=== PATIENT | male | born 1975 | race American Indian/Alaskan Native ===

== ENCOUNTER 2017-04-19 21:13 | Emergency (ER) | payer SELFPAY ==
[2017-04-19 21:57] VITALS: BP 135/84
--- NOTE | 2017-04-19 22:55 | Emergency Department Report ---
ED Back Pain/Injury HPI - General Chief Complaint: Back Pain/Injury Stated Complaint: LOWER BACK PAIN Time Seen by Provider: 04/19/17 22:50 Source: patient Limitations: No Limitations - History of Present Illness Initial Comments: 42-year-old -[place] male with no past medical history comes in for complaint of lower back pain 1 week. Patient denies any difficulty urinating denies any hematuria denies any dysuria. Patient also denies any trauma to his back. 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 He reports a little pain medication he had was Motrin 1 week ago. Patient does admit to smoking. He currently reports no pain at this time. He has no primary care provider medical history no known drug allergies and currently takes no meds. MD Complaint: back pain Consistency: intermittent Improves With: none - Related Data Allergies Allergy/AdvReac Type Severity Reaction Status Date / Time No Known Allergies Allergy Unverified 04/19/17 21:51 ED Review of Systems ROS: Stated complaint: LOWER BACK PAIN Other details as noted in HPI Constitutional: denies: chills, fever Eyes: denies: eye pain, eye discharge, vision change ENT: denies: ear pain, throat pain Respiratory: denies: cough, shortness of breath, wheezing Cardiovascular: denies: chest pain, palpitations Endocrine: no symptoms reported Gastrointestinal: denies: abdominal pain, nausea, diarrhea Genitourinary: denies: urgency, dysuria Musculoskeletal: back pain. denies: joint swelling, arthralgia Skin: denies: rash, lesions Neurological: denies: headache, weakness, paresthesias Psychiatric: denies: anxiety, depression Hematological/Lymphatic: denies: easy bleeding, easy bruising ED Past Medical Hx - Past Medical History Previous Medical History?: No - Surgical History Past Surgical History?: Yes Additional Surgical History: fluid drained from lungs - Social History Smoking Status: Current Every Day Smoker Substance Use Type: Alcohol, Marijuana ED Physical Exam - General Limitations: No Limitations General appearance: alert, in no apparent distress - Head Head exam: Present: atraumatic, normocephalic - Eye Eye exam: Present: normal appearance - ENT ENT exam: Present: mucous membranes moist - Neck Neck exam: Present: normal inspection - Respiratory Respiratory exam: Present: normal lung sounds bilaterally. Absent: respiratory distress - Cardiovascular Cardiovascular Exam: Present: regular rate, normal rhythm. Absent: systolic murmur, diastolic murmur, rubs, gallop - GI/Abdominal GI/Abdominal exam: Present: soft, normal bowel sounds - Rectal Rectal exam: Present: deferred - Extremities Exam Extremities exam: Present: normal inspection - Back Exam Back exam: Present: normal inspection - Neurological Exam Neurological exam: Present: alert, oriented X3 - Psychiatric Psychiatric exam: Present: normal affect, normal mood - Skin Skin exam: Present: warm, dry, intact, normal color. Absent: rash ED Course Vital Signs 04/19/17 21:52 Temperature 98.3 F Pulse Rate 66 Respiratory 18 Rate Blood Pressure 135/84 O2 Sat by Pulse 98 Oximetry ED Medical Decision Making - Medical Decision Making Patient has been evaluated by this provider fast track. Patient reports he has no back pain at this moment. I discussed the patient needs to follow up with [facility] for further evaluation. Also discussed the patient needs to stop smoking. Patient verbalized understanding. Patient has had no trauma to the back. Critical care attestation.: If time is entered above; I have spent that time in minutes in the direct care of this critically ill patient, excluding procedure time. ED Disposition Clinical Impression: Back pain Qualifiers: Back pain location: low back pain Chronicity: acute Back pain laterality: unspecified Sciatica presence: without sciatica Qualified Code(s): M54.5 - Low back pain Disposition: DC-01 TO HOME OR SELFCARE Is pt being admited?: No Does the pt Need Aspirin: No Condition: Stable Instructions: Back Pain (ED), Low Back Strain (ED) Additional Instructions: Please follow up with [facility] for further evaluation. He can take Motrin or Tylenol for back pain. Referrals: CHI MANNING MD [Primary Care Provider] - 3-[address] [facility] [Provider Group] - 3-5 Days
[2017-04-19 23:27] LABS: Bilirubin,Urine NEG (Negative); Blood,Urine NEG (Negative); Color,Urine Yellow (Yellow); Mucus,Urine 1+ /HPF; Protein,Urine <15 mg/dL mg/dL (Negative); Urobilinogen,Urine < 2.0 mg/dL (<2.0); WBC,Urine < 1.0 /HPF (0.0-6.0)
== END 2017-04-19 23:30 | disposition home or self-care (01) ==
LOC: ED 21:13
DX: M54.5 Low back pain (principal); F17.200 Nicotine dependence, unspecified, uncomplicated; F12.10 Cannabis abuse, uncomplicated
CPT/HCPCS: 81001; 99283

== ENCOUNTER 2017-10-16 02:19 | Inpatient (IN) | payer OTHER ==
[2017-10-16] MEDS ORDERED: NACL 0.9% 1000 ML 1,000 ML IV ONE (04:02)
[2017-10-16 04:17] LABS: Hematocrit 29.7 % (35.5-45.6); Hemoglobin 10.3 gm/dl (11.8-15.2); Mean Corpuscular HGB Conc 35 % (32-34); Mean Corpuscular Hemoglobin 40 pg (28-32); Platelet Count 105 K/mm3 (140-440); Red Blood Count 2.58 M/mm3 (3.65-5.03); Red Cell Distribution Width 13.4 % (13.2-15.2)
[2017-10-16 04:35] LABS: Mean Corpuscular Volume 115 fl (84-94)
[2017-10-16 04:50] LABS: Alanine Aminotransferase 11 units/L (7-56); Albumin 3.6 g/dL (3.9-5); BUN/Creatinine Ratio 7; Blood Urea Nitrogen 7 mg/dL (9-20); Calcium 8.7 mg/dL (8.4-10.2); Hemolysis Index 2
[2017-10-16 06:43] LABS: Band Neutrophils # (Manual) 0.1 K/mm3; Basophils % (Manual) 0 % (0.0-1.8); Eosinophils % (Manual) 0 % (0.0-4.3); Total Cells Counted 50
[2017-10-16 06:44] LABS: Platelet Estimate Appears Decreased; Toxic Granulation Rare
--- NOTE | 2017-10-16 06:45 | Emergency Department Report ---
ED General Adult HPI - General Chief complaint: Dizziness Stated complaint: SOB/DIZZINESS Time Seen by Provider: 10/16/17 06:31 Source: patient, RN notes reviewed Mode of arrival: Ambulatory Limitations: No Limitations - History of Present Illness Initial comments: This is a 42-year-old gentleman who is not known to this provider previously. He does not have a local primary care doctor and denies chronic medical conditions. He presents to the ER with 3 weeks of malaise, fatigue, shortness of breath with exertion, nausea, a few episodes of nonbloody, nonbilious emesis , green diarrhea, one episode within the past 24 hours, nontraumatic lower back pain, and urinary urgency and nausea, indicates vomiting times one within the past couple days. He denies DVT, pulmonary embolus risk factors, and he endorses no IV drug use, and he endorses one sexual contact within the past 6 months. His symptoms are constant, did not radiate anywhere, and worse with physical exertion and decreased with rest. -: Gradual, week(s) Location: back Radiation: non-radiation Severity scale (0 -10): 9 Quality: aching Consistency: intermittent Improves with: other Worsens with: other Associated Symptoms: fever/chills, loss of appetite, malaise, nausea/vomiting, shortness of breath, weakness. denies: confusion, chest pain, cough, diaphoresis, headaches, rash, seizure, syncope - Related Data Allergies Allergy/AdvReac Type Severity Reaction Status Date / Time No Known Allergies Allergy Verified 10/16/17 06:35 ED Review of Systems ROS: Stated complaint: SOB/DIZZINESS Other details as noted in HPI Comment: All other systems reviewed and negative ED Past Medical Hx - Past Medical History Previous Medical History?: No - Surgical History Additional Surgical History: fluid drained from lungs - Social History Smoking Status: Current Every Day Smoker Substance Use Type: None ED Physical Exam - General Limitations: No Limitations General appearance: alert, in no apparent distress - Head Head exam: Present: atraumatic, normocephalic - Eye Eye exam: Present: normal appearance, EOMI, other (visual acuity intact to finger counting, color perception, reading at a close distance). Absent: nystagmus - ENT ENT exam: Present: normal exam, normal orophraynx, mucous membranes moist, normal external ear exam - Neck Neck exam: Present: normal inspection, full ROM. Absent: tenderness, meningismus - Respiratory Respiratory exam: Present: normal lung sounds bilaterally. Absent: respiratory distress, wheezes, rales, rhonchi, stridor, chest wall tenderness - Cardiovascular Cardiovascular Exam: Present: regular rate, normal rhythm, normal heart sounds. Absent: bradycardia, tachycardia, irregular rhythm, systolic murmur, diastolic murmur, rubs, gallop - GI/Abdominal GI/Abdominal exam: Present: soft, normal bowel sounds. Absent: distended, tenderness, guarding, rebound, rigid, pulsatile mass - Rectal Rectal exam: Present: deferred - Extremities Exam Extremities exam: Present: normal inspection, full ROM, normal capillary refill , pedal edema (there is 1+ edema in the lower extremities), other (2+ pulses noted in the bilateral upper, lower extremities. Compartments soft. No long bony tenderness. The pelvis is stable.). Absent: tenderness, joint swelling, calf tenderness (there is no palpable cord. There is a negative Homans sign.) - Back Exam Back exam: Present: normal inspection, full ROM, paraspinal tenderness (there is reproducible paralumbar tenderness). Absent: tenderness, CVA tenderness (R) , vertebral tenderness - Neurological Exam Neurological exam: Present: alert, oriented X3, CN II-XII intact, normal gait ( there is no pass pointing. There is negative pronator drift. There is normal [id number].), other (Extraocular movements intact. Tongue midline. No facial droop. Facial sensation intact to light touch in the V1, V2, V3 distribution bilaterally. 5 and 5 strength in 4 extremities.. Sensation is intact to light touch in 4 extremities.). Absent: motor sensory deficit - Psychiatric Psychiatric exam: Present: normal affect, normal mood - Skin Skin exam: Present: warm, dry, intact, normal color. Absent: rash ED Course Vital Signs 10/16/17 10/16/17 03:54 05:23 Temperature 99.6 F 97.8 F Pulse Rate 93 H 60 Respiratory 18 18 Rate Blood Pressure 89/48 Blood Pressure 94/56 [Left] O2 Sat by Pulse 97 99 Oximetry - Reevaluation(s) Reevaluation #1: 10/16/17 07:13 Antibiotics ordered outside the three-hour window due to turnaround time between overnight to morning provider shift. 10/16/17 07:14 Reevaluation #2: 10/16/17 07:41 Blood pressure in the low 100s. Noncontrast CT scan of the brain is negative. Noncontrast CT scan of the abdomen and pelvis is negative for acute surgical disease. The patient is amenable to hospital admission. I will defer to the inpatient team to follow-up on the additional laboratory studies that were ordered in the emergency department, such as the hepatitis panel, RPR, HIV screen. The hospital physician, Dr. Phil Velazquez, accepted the patient to the medical service. ED Medical Decision Making - Lab Data Result diagrams: 10/16/17 04:07 10/16/17 04:07 Vital Signs 10/16/17 10/16/17 03:54 05:23 Temperature 99.6 F 97.8 F Pulse Rate 93 H 60 Respiratory 18 18 Rate Blood Pressure 89/48 Blood Pressure 94/56 [Left] O2 Sat by Pulse 97 99 Oximetry Lab Results 10/16/17 10/16/17 10/16/17 Range/Units 04:07 04:07 06:20 WBC 1.9 L* (4.5-11.0) K/mm3 RBC 2.58 L (3.65-5.03) M/mm3 Hgb 10.3 L (11.8-15.2) gm/dl Hct 29.7 L (35.5-45.6) % MCV 115 H (84-94) fl MCH 40 H (28-32) pg MCHC 35 H (32-34) % RDW 13.4 (13.2-15.2) % Plt Count 105 L (140-440) K/mm3 Add Manual Diff Complete Total Counted 50 Seg Neuts % (Manual) 30.0 L (40.0-70.0) % Band Neutrophils % 4.0 % Lymphocytes % (Manual) 54.0 H (13.4-35.0) % Reactive Lymphs % (Man) 0 % Monocytes % (Manual) 12.0 H (0.0-7.3) % Eosinophils % (Manual) 0 (0.0-4.3) % Basophils % (Manual) 0 (0.0-1.8) % Metamyelocytes % 0 % Myelocytes % 0 % Promyelocytes % 0 % Blast Cells % 0 % Nucleated RBC % Not Reportable Seg Neutrophils # Man 0.6 L (1.8-7.7) K/mm3 Band Neutrophils # 0.1 K/mm3 Lymphocytes # (Manual) 1.0 L (1.2-5.4) K/mm3 Abs React Lymphs (Man) 0.0 K/mm3 Monocytes # (Manual) 0.2 (0.0-0.8) K/mm3 Eosinophils # (Manual) 0.0 (0.0-0.4) K/mm3 Basophils # (Manual) 0.0 (0.0-0.1) K/mm3 Metamyelocytes # 0.0 K/mm3 Myelocytes # 0.0 K/mm3 Promyelocytes # 0.0 K/mm3 Blast Cells # 0.0 K/mm3 WBC Morphology Not Reportable Hypersegmented Neuts Not Reportable Hyposegmented Neuts Not Reportable Hypogranular Neuts Not Reportable Smudge Cells Not Reportable Toxic Granulation Rare Toxic Vacuolation Not Reportable Dohle Bodies Not Reportable Pelger-Huet Anomaly Not Reportable Raymundo Rods Not Reportable Platelet Estimate Appears decreased Clumped Platelets Not Reportable Plt Clumps, EDTA Not Reportable Large Platelets Not Reportable Giant Platelets Not Reportable Platelet Satelliting Not Reportable Plt Morphology Comment Not Reportable RBC Morphology Not Reportable Dimorphic RBCs Not Reportable Polychromasia Not Reportable Hypochromasia Not Reportable Poikilocytosis Not Reportable Anisocytosis Not Reportable Microcytosis Not Reportable Macrocytosis Not Reportable Spherocytes Not Reportable Pappenheimer Bodies Not Reportable Sickle Cells Not Reportable Target Cells Not Reportable Tear Drop Cells Not Reportable Ovalocytes Not Reportable Helmet Cells Not Reportable Whalen-Slayton Bodies Not Reportable Bivins Rings Not Reportable Gladys Cells Not Reportable Bite Cells Not Reportable Crenated Cell Not Reportable Elliptocytes Not Reportable Acanthocytes (Spur) Not Reportable Rouleaux Not Reportable Hemoglobin C Crystals Not Reportable Schistocytes Not Reportable Malaria parasites Not Reportable Eduin Bodies Not Reportable Hem Pathologist Commnt No Sodium 138 (137-145) mmol/L Potassium 4.2 (3.6-5.0) mmol/L Chloride 100.8 (98-107) mmol/L Carbon Dioxide 27 (22-30) mmol/L Anion Gap 14 mmol/L BUN 7 L (9-20) mg/dL Creatinine 1.0 (0.8-1.5) mg/dL Estimated GFR > 60 ml/min BUN/Creatinine Ratio 7 % Glucose 110 H (75-100) mg/dL Calcium 8.7 (8.4-10.2) mg/dL Total Bilirubin 0.30 (0.1-1.2) mg/dL AST 14 (5-40) units/L ALT 11 (7-56) units/L Alkaline Phosphatase 43 (35-129) units/L Total Protein 6.8 (6.3-8.2) g/dL Albumin 3.6 L (3.9-5) g/dL Albumin/Globulin Ratio 1.1 % Urine Color [place] (Yellow) Urine Turbidity Slightly-cloudy (Clear) Urine pH 6.0 (5.0-7.0) Ur Specific [place] 1.026 (1.003-1.030) Urine Protein 100 mg/dl (Negative) mg/dL Urine Glucose (UA) Neg (Negative) mg/dL Urine Ketones Neg (Negative) mg/dL Urine Blood Neg (Negative) Urine Nitrite Neg (Negative) Urine Bilirubin Neg (Negative) Urine Urobilinogen 4.0 (<2.0) mg/dL Ur Leukocyte Esterase Neg (Negative) Urine WBC (Auto) 16.0 H (0.0-6.0) /HPF Urine RBC (Auto) 8.0 (0.0-6.0) /HPF U Epithel Cells (Auto) 1.0 (0-13.0) /HPF Urine Mucus 3+ /HPF - EKG Data -: EKG Interpreted by [place] EKG shows normal: sinus rhythm, axis, intervals, QRS complexes, ST-T waves - EKG Data When compared to previous EKG there are: previous EKG unavailable Interpretation: LVH (high left ventricular voltage given age less than 50) - Medical Decision Making Differential diagnosis, including but not limited to: HIV, cancer, malignancy, pneumonia, urinary tract infection, hepatitis, neutropenia, seizures, sepsis Assessment and plan: 42-year-old gentleman with nonspecific constitutional symptoms, with heart rate greater than 90, hypotension, leukopenia, moderate neutropenia, absolute neutrophil count calculated to be 646 as per the M.D. calc website. He'll be resuscitated according to the standard sepsis pathway. Noncontrast CT scan of the brain is pending. Noncontrast CT scan of the abdomen and pelvis is pending. X-ray of the chest is pending. He will require admission to the hospital given that he has moderate neutropenia and is meeting systemic inflammatory response syndrome criteria. Reports no DVT or pulmonary embolus risk factors, low risk by well's criteria, perc negative. I have contacted the senior oracle adf developer on-call, Dr. Canales, will follow in consultation, agrees with current management plan, recommends LDH, B12, folate level, blood smear. Additional managements will depend on his diagnostics in the emergency room. Critical care attestation.: If time is entered above; I have spent that time in minutes in the direct care of this critically ill patient, excluding procedure time. ED Disposition Clinical Impression: Neutropenia, SIRS (systemic inflammatory response syndrome) Disposition: OP ADMIT IP TO THIS HOSP Is pt being admited?: Yes Condition: Good Referrals: PRIMARY CARE, [Primary Care Provider] - 3-5 Days
[2017-10-16] MEDS ORDERED: NACL 0.9% 1000 ML IV ONE (06:54)
[2017-10-16 07:06] LABS: Bilirubin,Urine NEG (Negative); Blood,Urine NEG (Negative); Color,Urine Amber (Yellow); Mucus,Urine 3+ /HPF
--- NOTE | 2017-10-16 07:21 | XRay Report ---
ROUTINE CHEST, TWO VIEWS: HISTORY: Dyspnea. The lungs are mildly hyperinflated but clear. The trachea, heart, mediastinal contour, and bony thorax are unremarkable. IMPRESSION: Mild hyperinflation, otherwise, unremarkable chest films
--- NOTE | 2017-10-16 07:23 | Cat Scan Report ---
FINAL REPORT EXAM: CT HEAD/BRAIN WO CON HISTORY: dizzyness TECHNIQUE: CT imaging acquired through the head without intravenous contrast. Transaxial reformations are provided. PRIORS: None. FINDINGS: The ventricles, cisterns and sulci are normal. No intraparenchymal or extra-axial mass, hemorrhage, or mass effect. Herbert and white-matter differentiation is normal. Normal spherical shape of the globes. Paranasal sinuses and mastoid air cells are clear. No skull or facial fracture visualized. IMPRESSION: No acute intracranial abnormality.
--- NOTE | 2017-10-16 07:29 | Cat Scan Report ---
FINAL REPORT EXAM: CT ABDOMEN PELVIS WO CON HISTORY: back pain hypotension TECHNIQUE: CT images obtained through the Abdomen and Pelvis without contrast. Transaxial,coronal and sagittal reformats are provided. PRIORS: None. FINDINGS: Imaged intrathoracic contents are remarkable for possible sequela of emphysema or small airways disease. Kidneys are normal in size, axis and position. No hydroureteronephrosis. There is a nonobstructive 4 millimeter stone in the right collecting system. No left-sided nephrolithiasis. No stones are seen within the urinary bladder. The liver, gallbladder, pancreas, spleen, and adrenal glands demonstrate a normal noncontrast appearance. Hollow enteric organs are normal in course and caliber. There is fluid throughout much of the small bowel and colon without evident bowel wall thickening or adjacent stranding or edema. Appendix is normal. No intra-abdominal free air/fluid or lymphadenopathy. Aorta is normal in course and caliber. Superficial soft tissues are unremarkable. No acute or aggressive appearing skeletal findings. IMPRESSION: Fluid throughout much of the small bowel and colon may be infectious or inflammatory in etiology. No pneumoperitoneum or evident bowel wall thickening or adjacent stranding or edema. Partially imaged lungs show suggested sequela of centrilobular emphysema and/or reactive airways disease
[2017-10-16] MEDS ORDERED: SUBLIMAZE IV ONE (07:41)
[2017-10-16 07:49] LABS: INR 1.02 (0.87-1.13)
[2017-10-16 07:50] LABS: Partial Thromboplastin Time 35.5 Sec. (24.2-36.6)
[2017-10-16] MEDS ORDERED: MAXIPIME/NS 2 GM/100 ML 2 GM/100 ML BAG IV SCH (08:00)
[2017-10-16] MEDS ORDERED: NACL 0.9% 500 ML 500 ML IV ONE (08:00)
--- NOTE | 2017-10-16 08:08 | History and Physical Report ---
History of Present Illness Date of examination: 10/16/17 Date of admission: 10/16/17 Chief complaint: GENERALIZED WEAKNESS, BACK PAIN, NAUSEA History of present illness: 42 year old male with weakness, near syncope worse with movement, chills, persistent nausea, with no associated diarrhea or shortness of breath. The patient reports that this started about 2 weeks ago and was seen in the hospital in [place] time for chest discomfort was clipped from the ER. He reports feeling better but symptoms recurred the last week presented him to come to the hospital as he was unable to keep any food down. On arrival to the hospital and was noted to be hypotensive with systolic blood pressure in the low 80s. While the patient denies overt alcohol abuse he does admit to tobacco use and occasional alcohol use but denies any binge drinking. He was noted to be pancytopenic and recommended for admission Past History Past Surgical History: Other (pleural effusion with drainage complication of a pneumonia) Social history: smoking Family history: no significant family history Medications and Allergies Allergies Allergy/AdvReac Type Severity Reaction Status Date / Time No Known Allergies Allergy Verified 10/16/17 06:35 Home Medications Medication Instructions Recorded Confirmed Last Taken Type No Known Home Medications [No 10/16/17 10/16/17 Unknown History Reported Home Medications] Active Meds: Active Medications Cefepime HCl (Maxipime/Ns 2 Gm/100 Ml) 2 gm in 100 mls @ 200 mls/hr IV NOW ANGELITO ; Protocol Stop: 10/16/17 09:00 Ceftriaxone Sodium (Rocephin/Ns 1 Gm/50 Ml) 1 gm in 50 mls @ 100 mls/hr IV Q24HR ANGELITO; Protocol Sodium Chloride (Nacl 0.9% 500 Ml) 500 mls @ 999 mls/hr IV ONCE ONE Stop: 10/16/17 08:30 Sodium Chloride (Nacl 0.9% 1000 Ml) 1,000 mls @ 150 mls/hr IV DIRECT ANGELITO Review of Systems All systems: negative Constitutional: weight loss, chills, sweats, night sweats Respiratory: cough, shortness of breath Gastrointestinal: nausea, vomiting Musculoskeletal: low back pain Neurological: syncope (near) Hematologic/Lymphatic: no easy bruising, no easy bleeding, no thrombophilia Exam - Physical Exam Narrative exam: VITAL SIGNS: Reviewed. GENERAL: The patient appeared well nourished and normally developed has a little lethargic. Vital signs as documented. HEAD: No signs of head trauma. EYES: Pupils are equal. Extraocular motions intact. EARS: Hearing grossly intact. MOUTH: Oropharynx is normal. NECK: No adenopathy, no JVD. CHEST: Chest with clear breath sounds bilaterally. No wheezes, rales, or rhonchi. CARDIAC: Regular rate and rhythm. S1 and S2, without murmurs, gallops, or rubs. VASCULAR: No Edema. Peripheral pulses normal and equal in all extremities. ABDOMEN: Soft, without detectable tenderness. No sign of distention. No rebound or guarding, and no masses palpated. Bowel Sounds normal. MUSCULOSKELETAL: Good range of motion of all major joints. Extremities without clubbing, cyanosis or edema. NEUROLOGIC EXAM: Alert and oriented x 3. No focal sensory or strength deficits. Speech normal. Follows commands. PSYCHIATRIC: Mood normal. SKIN: No rash or lesions. - Constitutional Vitals: Temp Pulse Resp BP Pulse Ox 97.8 F 60 18 89/48 99 10/16/17 05:23 10/16/17 05:23 10/16/17 05:23 10/16/17 05:23 10/16/17 05:23 Results - Labs CBC & Chem 7: 10/16/17 04:07 10/16/17 04:07 Labs: Laboratory Last Values WBC 1.9 K/mm3 (4.5-11.0) L* 10/16/17 04:07 RBC 2.58 M/mm3 (3.65-5.03) L 10/16/17 04:07 Hgb 10.3 gm/dl (11.8-15.2) L 10/16/17 04:07 Hct 29.7 % (35.5-45.6) L 10/16/17 04:07 MCV 115 fl (84-94) H 10/16/17 04:07 MCH 40 pg (28-32) H 10/16/17 04:07 MCHC 35 % (32-34) H 10/16/17 04:07 RDW 13.4 % (13.2-15.2) 10/16/17 04:07 Plt Count 105 K/mm3 (140-440) L 10/16/17 04:07 Add Manual Diff Complete 10/16/17 04:07 Total Counted 50 10/16/17 04:07 Seg Neuts % (Manual) 30.0 % (40.0-70.0) L 10/16/17 04:07 Band Neutrophils % 4.0 % 10/16/17 04:07 Lymphocytes % (Manual) 54.0 % (13.4-35.0) H 10/16/17 04:07 Reactive Lymphs % (Man) 0 % 10/16/17 04:07 Monocytes % (Manual) 12.0 % (0.0-7.3) H 10/16/17 04:07 Eosinophils % (Manual) 0 % (0.0-4.3) 10/16/17 04:07 Basophils % (Manual) 0 % (0.0-1.8) 10/16/17 04:07 Metamyelocytes % 0 % 10/16/17 04:07 Myelocytes % 0 % 10/16/17 04:07 Promyelocytes % 0 % 10/16/17 04:07 Blast Cells % 0 % 10/16/17 04:07 Nucleated RBC % Not Reportable 10/16/17 04:07 Seg Neutrophils # Man 0.6 K/mm3 (1.8-7.7) L 10/16/17 04:07 Band Neutrophils # 0.1 K/mm3 10/16/17 04:07 Lymphocytes # (Manual) 1.0 K/mm3 (1.2-5.4) L 10/16/17 04:07 Abs React Lymphs (Man) 0.0 K/mm3 10/16/17 04:07 Monocytes # (Manual) 0.2 K/mm3 (0.0-0.8) 10/16/17 04:07 Eosinophils # (Manual) 0.0 K/mm3 (0.0-0.4) 10/16/17 04:07 Basophils # (Manual) 0.0 K/mm3 (0.0-0.1) 10/16/17 04:07 Metamyelocytes # 0.0 K/mm3 10/16/17 04:07 Myelocytes # 0.0 K/mm3 10/16/17 04:07 Promyelocytes # 0.0 K/mm3 10/16/17 04:07 Blast Cells # 0.0 K/mm3 10/16/17 04:07 WBC Morphology Not Reportable 10/16/17 04:07 Hypersegmented Neuts Not Reportable 10/16/17 04:07 Hyposegmented Neuts Not Reportable 10/16/17 04:07 Hypogranular Neuts Not Reportable 10/16/17 04:07 Smudge Cells Not Reportable 10/16/17 04:07 Toxic Granulation Rare 10/16/17 04:07 Toxic Vacuolation Not Reportable 10/16/17 04:07 Dohle Bodies Not Reportable 10/16/17 04:07 Pelger-Huet Anomaly Not Reportable 10/16/17 04:07 Raymundo Rods Not Reportable 10/16/17 04:07 Platelet Estimate Appears decreased 10/16/17 04:07 Clumped Platelets Not Reportable 10/16/17 04:07 Plt Clumps, EDTA Not Reportable 10/16/17 04:07 Large Platelets Not Reportable 10/16/17 04:07 Giant Platelets Not Reportable 10/16/17 04:07 Platelet Satelliting Not Reportable 10/16/17 04:07 Plt Morphology Comment Not Reportable 10/16/17 04:07 RBC Morphology Not Reportable 10/16/17 04:07 Dimorphic RBCs Not Reportable 10/16/17 04:07 Polychromasia Not Reportable 10/16/17 04:07 Hypochromasia Not Reportable 10/16/17 04:07 Poikilocytosis Not Reportable 10/16/17 04:07 Anisocytosis Not Reportable 10/16/17 04:07 Microcytosis Not Reportable 10/16/17 04:07 Macrocytosis Not Reportable 10/16/17 04:07 Spherocytes Not Reportable 10/16/17 04:07 Pappenheimer Bodies Not Reportable 10/16/17 04:07 Sickle Cells Not Reportable 10/16/17 04:07 Target Cells Not Reportable 10/16/17 04:07 Tear Drop Cells Not Reportable 10/16/17 04:07 Ovalocytes Not Reportable 10/16/17 04:07 Helmet Cells Not Reportable 10/16/17 04:07 Whalen-[place] Bodies Not Reportable 10/16/17 04:07 Ringling Rings Not Reportable 10/16/17 04:07 Gladys Cells Not Reportable 10/16/17 04:07 Bite Cells Not Reportable 10/16/17 04:07 Crenated Cell Not Reportable 10/16/17 04:07 Elliptocytes Not Reportable 10/16/17 04:07 Acanthocytes (Spur) Not Reportable 10/16/17 04:07 Rouleaux Not Reportable 10/16/17 04:07 Hemoglobin C Crystals Not Reportable 10/16/17 04:07 Schistocytes Not Reportable 10/16/17 04:07 Malaria parasites Not Reportable 10/16/17 04:07 Eduin Bodies Not Reportable 10/16/17 04:07 Hem Pathologist Commnt No 10/16/17 04:07 PT 13.9 Sec. (12.2-14.9) 10/16/17 07:18 INR 1.02 (0.87-1.13) 10/16/17 07:18 APTT 35.5 Sec. (24.2-36.6) 10/16/17 07:18 Sodium 138 mmol/L (137-145) 10/16/17 04:07 Potassium 4.2 mmol/L (3.6-5.0) 10/16/17 04:07 Chloride 100.8 mmol/L (98-107) 10/16/17 04:07 Carbon Dioxide 27 mmol/L (22-30) 10/16/17 04:07 Anion Gap 14 mmol/L 10/16/17 04:07 BUN 7 mg/dL (9-20) L 10/16/17 04:07 Creatinine 1.0 mg/dL (0.8-1.5) 10/16/17 04:07 Estimated GFR > 60 ml/min 10/16/17 04:07 BUN/Creatinine Ratio 7 % 10/16/17 04:07 Glucose 110 mg/dL (75-100) H 10/16/17 04:07 POC Glucose 92 (70-105) 10/16/17 08:00 Lactic Acid 0.80 mmol/L (0.7-2.0) 10/16/17 07:18 Calcium 8.7 mg/dL (8.4-10.2) 10/16/17 04:07 Total Bilirubin 0.30 mg/dL (0.1-1.2) 10/16/17 04:07 AST 14 units/L (5-40) 10/16/17 04:07 ALT 11 units/L (7-56) 10/16/17 04:07 Alkaline Phosphatase 43 units/L (35-129) 10/16/17 04:07 Total Protein 6.8 g/dL (6.3-8.2) 10/16/17 04:07 Albumin 3.6 g/dL (3.9-5) L 10/16/17 04:07 Albumin/Globulin Ratio 1.1 % 10/16/17 04:07 Urine Color Haydee (Yellow) 10/16/17 06:20 Urine Turbidity Slightly-cloudy (Clear) 10/16/17 06:20 Urine pH 6.0 (5.0-7.0) 10/16/17 06:20 Ur Specific [place] 1.026 (1.003-1.030) 10/16/17 06:20 Urine Protein 100 mg/dl mg/dL (Negative) 10/16/17 06:20 Urine Glucose (UA) Neg mg/dL (Negative) 10/16/17 06:20 Urine Ketones Neg mg/dL (Negative) 10/16/17 06:20 Urine Blood Neg (Negative) 10/16/17 06:20 Urine Nitrite Neg (Negative) 10/16/17 06:20 Urine Bilirubin Neg (Negative) 10/16/17 06:20 Urine Urobilinogen 4.0 mg/dL (<2.0) 10/16/17 06:20 Ur Leukocyte Esterase Neg (Negative) 10/16/17 06:20 Urine WBC (Auto) 16.0 /HPF (0.0-6.0) H 10/16/17 06:20 Urine RBC (Auto) 8.0 /HPF (0.0-6.0) 10/16/17 06:20 U Epithel Cells (Auto) 1.0 /HPF (0-13.0) 10/16/17 06:20 Urine Mucus 3+ /HPF 10/16/17 06:20 Blood Type O POSITIVE 10/16/17 07:18 - Imaging and Cardiology CT scan - abdomen: pending Assessment and Plan Assessment and plan: 42 year old male with weakness, near syncope worse with movement, chills, persistent nausea, with no associated diarrhea or shortness of breath. The patient reports that this started about 2 weeks ago and was seen in the hospital in [place] time for chest discomfort was clipped from the ER. He reports feeling better but symptoms recurred the last week presented him to come to the hospital as he was unable to keep any food down. On arrival to the hospital and was noted to be hypotensive with systolic blood pressure in the low 80s. While the patient denies overt alcohol abuse he does admit to tobacco use and occasional alcohol use but denies any binge drinking. He was noted to be pancytopenic and recommended for admission pancytopenia Acute Cystitis Shock syndrom Acute Gastroenteritis SIRS Tobacco use disorder PLAN Admit to step down and downgrade once pressure improve Sepsis protocol, will give additional fluids Jennings work up currently on going from ED including cultures Counselling about tobacco cessation Emperic abx coverage Hepatitis profile Consult to hematology and ID Neutropenic precautions CT abd Pain control DVT/GI proph plan discussed with ID, patient and ED physician. The high probability of a clinically significant, sudden or life threatening deterioration of the [GI, renal] system(s) required my full and direct attention , intervention and personal management. The aggregate critical care time was [35 ] minutes. This time is in addition to time spent performing reported procedures but includes the following: [X Data Review and interpretation [X] Patient assessment and monitoring of vital signs [X Documentation [X] Medication orders and management Advance Directives: Yes Plan of care discussed with patient/family: Yes
[2017-10-16 08:56] LABS: Smear for Schistocytes None Seen
[2017-10-16] MEDS: ROCEPHIN/NS 1 GM/50 ML 1 GM/50 ML BAG IV SCH (09:34)
--- NOTE | 2017-10-16 09:48 | Consultation ---
History of Present Illness - Reason for Consult Consult date: 10/16/17 neutropenia Requesting physician: JONATHON MENCHACA - History of Present Illness 42-year-old male w/o medical history; admitted on 10/16/17 due to 2-week history of malaise, fatigue, generalized weakness, subjective fever, associated with anorexia and nausea. Patient has an episode of vomiting and episode of green diarrhea. H is currently unemployed and a stay at home. No recent travels. Denies any tick bites. Denies any sick contacts. Reports significant weight loss for 2 weeks but unable to determine how much he lost. He does smoke a pack of cigarettes for many years. Denies stroke abuse or alcohol abuse. In the ED initial temperature was 99.6, heart rate 93, respiration 18, O2 sat 97 , blood pressure 94/56. Initial white count 1.9. Hemoglobin 10.3. Platelets 105. Lymphocytes 54%. Creatinine 1. ALT and AST normal, UA shows 16 white blood cells and negative leukocyte esterase. Chest x-ray was unremarkable. CT of the head unremarkable. CT of Abdomen unremarkable. Microbiology: Blood cultures: 10/16 ngtd Current Antimicrobials: ceftriaxone Previous Antimicrobials: Medications and Allergies Allergies Allergy/AdvReac Type Severity Reaction Status Date / Time No Known Allergies Allergy Verified 10/16/17 06:35 Active Meds: Active Medications Ceftriaxone Sodium (Rocephin/Ns 1 Gm/50 Ml) 1 gm in 50 mls @ 100 mls/hr IV Q24HR ANGELITO; Protocol Last Admin: 10/16/17 09:34 Dose: 100 mls/hr Sodium Chloride (Nacl 0.9% 1000 Ml) 1,000 mls @ 150 mls/hr IV DIRECT ANGELITO Review of Systems All systems: negative (as per HPI. Rest of 10 point review of systems negative) Physical Examination - Physical Exam Narrative exam: General appearance: Alert in NAD, conversant Eyes: anicteric sclerae, moist conjunctivae; no lid-lag; PERRLA HENT: Atraumatic; oropharynx clear with moist mucous membranes and no mucosal ulcerations/no oral thrush; normal hard and soft palate. Normal external ears. Neck: Trachea midline; supple, no thyromegaly or lymphadenopathy Lungs: CTA, with normal respiratory effort and no intercostal retractions CV: RRR, no murmurs Abdomen: Soft, non-tender; no masses or hepatosplenomegaly Extremities: No peripheral edema or extremity lymphadenopathy Skin: Superficial nodules at the johnson area. Vickey Cervical lymph node palpable. Psych: Appropriate affect, alert and oriented to person, place and time. Neuro: alert and oriented x 3. Moving all extermities Lines: No CVL / PICC - Constitutional Vitals: Vital Signs Temp Pulse Resp BP Pulse Ox 97.8 F 55 L 17 117/68 100 10/16/17 08:07 10/16/17 08:07 10/16/17 08:35 10/16/17 08:07 10/16/17 08:07 Temperature -Last 24 Hours Temperature 97.8 F Temperature 97.8 F Temperature 99.6 F Results - Labs CBC & Chem 7: 10/16/17 04:07 10/16/17 04:07 Labs: Abnormal lab results 10/16/17 10/16/17 10/16/17 Range/Units 04:07 04:07 06:20 WBC 1.9 L* (4.5-11.0) K/mm3 RBC 2.58 L (3.65-5.03) M/mm3 Hgb 10.3 L (11.8-15.2) gm/dl Hct 29.7 L (35.5-45.6) % MCV 115 H (84-94) fl MCH 40 H (28-32) pg MCHC 35 H (32-34) % Plt Count 105 L (140-440) K/mm3 Seg Neuts % (Manual) 30.0 L (40.0-70.0) % Lymphocytes % (Manual) 54.0 H (13.4-35.0) % Monocytes % (Manual) 12.0 H (0.0-7.3) % Seg Neutrophils # Man 0.6 L (1.8-7.7) K/mm3 Lymphocytes # (Manual) 1.0 L (1.2-5.4) K/mm3 BUN 7 L (9-20) mg/dL Glucose 110 H (75-100) mg/dL Albumin 3.6 L (3.9-5) g/dL Urine WBC (Auto) 16.0 H (0.0-6.0) /HPF Assessment and Plan Assessment: 1) SIRS: Present on admission, manifested by fever, tachycardia, hypotension, neutropenia. Etiology unclear. DDX: mononucleosis syndrome, UTI, HIV, tick bite infections (denies recent bite), less likely malignancy -CXR neg -CT abd neg -HIV neg 2) Mild UTI 3) Weight loss: from ? mono Plan: -follow-up blood cultures, urine culture -obtain EBV and CMV serology -obtain C-reactive protein (CRP) -continue ceftriaxone for now -agree with Hem consult Thank you for your consultation, will follow up with you. Tina Brooke MD Infectious Diseases Specialist [facility] ([facility] M [phone] O [phone]
[2017-10-16 10:05] LABS: Hepatitis A Antibody IgM Non-Reactive (NonReactive); Hepatitis B Surface Antigen Non-Reactive (Negative)
--- NOTE | 2017-10-16 10:24 | Hem/Onc Consultation ---
History of Present Illness - Reason for Consult Consult date: 10/16/17 pancytopenia - History of Present Illness found to have low wbc, hb and plt, h/o weakness 2 weeks 42-year-old male w/o medical history; admitted on 10/16/17 due to 2-week history of malaise, fatigue, generalized weakness, subjective fever, associated with anorexia and nausea. Patient had an episode of vomiting and episode of green diarrhea. H is currently unemployed and a stay at home. No recent travels. Reports significant weight loss for 2 weeks but unable to determine how much he lost. He does smoke a pack of cigarettes for many years. Denies stroke abuse or alcohol abuse. In the ED blood pressure 94/56. Initial white count 1.9. Hemoglobin 10.3. Platelets 105. Lymphocytes 54%. Creatinine 1. ALT and AST normal, UA shows 16 white blood cells and negative leukocyte esterase. Chest x-ray was unremarkable. CT of the head unremarkable. CT of Abdomen unremarkable. Past History Past Medical History: denies: acute [place] Social history: lives with family Medications and Allergies Allergies Allergy/AdvReac Type Severity Reaction Status Date / Time No Known Allergies Allergy Verified 10/16/17 06:35 Active Meds: Active Medications Ceftriaxone Sodium (Rocephin/Ns 1 Gm/50 Ml) 1 gm in 50 mls @ 100 mls/hr IV Q24HR ANGELITO; Protocol Last Admin: 10/16/17 09:34 Dose: 100 mls/hr Sodium Chloride (Nacl 0.9% 1000 Ml) 1,000 mls @ 150 mls/hr IV DIRECT ANGELITO Review of Systems Constitutional: weight loss, fever, fatigue Ears, nose, mouth and throat: no epistaxis Cardiovascular: no chest pain Respiratory: no hemoptysis Gastrointestinal: vomiting Genitourinary Male: no hematuria Integumentary: no rash Neurological: no convulsions Hematologic/Lymphatic: no easy bruising Exam - Constitutional Vitals: Last Vital Signs Temp 97.8 F 10/16/17 08:07 Pulse 55 L 10/16/17 08:07 Resp 17 10/16/17 08:35 BP 117/68 10/16/17 08:07 Pulse Ox 100 10/16/17 08:07 General appearance: no acute distress - EENT Eyes: PERRL ENT: clear oral mucosa Lymph node exam: negative cervical, negative supraclavicular - Neck Neck: supple - Respiratory Respiratory: negative: CTA - Cardiovascular Rhythm: regular Heart Sounds: Present: S1 & S2 Extremities: No edema - Gastrointestinal General gastrointestinal: Present: soft, non-tender Rectal Exam: deferred - Genitourinary Male genitourinary: Present: deferred - Integumentary Integumentary: clear - Neurologic Neurologic: moves all extremities Results - Labs lab Results: Laboratory Results - last 24 hr 10/16/17 10/16/17 10/16/17 04:07 04:07 06:20 WBC 1.9 L* RBC 2.58 L Hgb 10.3 L Hct 29.7 L MCV 115 H MCH 40 H MCHC 35 H RDW 13.4 Plt Count 105 L Add Manual Diff Complete Total Counted 50 Seg Neuts % (Manual) 30.0 L Band Neutrophils % 4.0 Lymphocytes % (Manual) 54.0 H Reactive Lymphs % (Man) 0 Monocytes % (Manual) 12.0 H Eosinophils % (Manual) 0 Basophils % (Manual) 0 Metamyelocytes % 0 Myelocytes % 0 Promyelocytes % 0 Blast Cells % 0 Nucleated RBC % Not Reportable Seg Neutrophils # Man 0.6 L Band Neutrophils # 0.1 Lymphocytes # (Manual) 1.0 L Abs React Lymphs (Man) 0.0 Monocytes # (Manual) 0.2 Eosinophils # (Manual) 0.0 Basophils # (Manual) 0.0 Metamyelocytes # 0.0 Myelocytes # 0.0 Promyelocytes # 0.0 Blast Cells # 0.0 WBC Morphology Not Reportable Hypersegmented Neuts Not Reportable Hyposegmented Neuts Not Reportable Hypogranular Neuts Not Reportable Smudge Cells Not Reportable Toxic Granulation Rare Toxic Vacuolation Not Reportable Dohle Bodies Not Reportable Pelger-Huet Anomaly Not Reportable Raymundo Rods Not Reportable Platelet Estimate Appears decreased Clumped Platelets Not Reportable Plt Clumps, EDTA Not Reportable Large Platelets Not Reportable Giant Platelets Not Reportable Platelet Satelliting Not Reportable Plt Morphology Comment Not Reportable RBC Morphology Not Reportable Dimorphic RBCs Not Reportable Polychromasia Not Reportable Hypochromasia Not Reportable Poikilocytosis Not Reportable Anisocytosis Not Reportable Microcytosis Not Reportable Macrocytosis Not Reportable Spherocytes Not Reportable Pappenheimer Bodies Not Reportable Sickle Cells Not Reportable Target Cells Not Reportable Tear Drop Cells Not Reportable Ovalocytes Not Reportable Helmet Cells Not Reportable [place] Bodies Not Reportable Energy Rings Not Reportable [place] Cells Not Reportable Bite Cells Not Reportable Crenated Cell Not Reportable Elliptocytes Not Reportable Acanthocytes (Spur) Not Reportable Rouleaux Not Reportable Hemoglobin C Crystals Not Reportable Schistocytes Not Reportable Malaria parasites Not Reportable Eduin Bodies Not Reportable Hem Pathologist Commnt No PT INR APTT Sodium 138 Potassium 4.2 Chloride 100.8 Carbon Dioxide 27 Anion Gap 14 BUN 7 L Creatinine 1.0 Estimated GFR > 60 BUN/Creatinine Ratio 7 Glucose 110 H POC Glucose Lactic Acid Calcium 8.7 Total Bilirubin 0.30 AST 14 ALT 11 Alkaline Phosphatase 43 Troponin T Total Protein 6.8 Albumin 3.6 L Albumin/Globulin Ratio 1.1 Vitamin B12 Folate TSH Urine Color [place] Urine Turbidity Slightly-cloudy Urine pH 6.0 Ur Specific [place] 1.026 Urine Protein 100 mg/dl Urine Glucose (UA) Neg Urine Ketones Neg Urine Blood Neg Urine Nitrite Neg Urine Bilirubin Neg Urine Urobilinogen 4.0 Ur Leukocyte Esterase Neg Urine WBC (Auto) 16.0 H Urine RBC (Auto) 8.0 U Epithel Cells (Auto) 1.0 Urine Mucus 3+ Hepatitis A IgM Ab Hep Bs Antigen HIV 1&2 Antibody Rapid HIV P24 Antigen Schistocytes Smear Blood Type Antibody Screen 10/16/17 10/16/17 10/16/17 07:18 07:18 07:18 WBC RBC Hgb Hct MCV MCH MCHC RDW Plt Count Add Manual Diff Total Counted Seg Neuts % (Manual) Band Neutrophils % Lymphocytes % (Manual) Reactive Lymphs % (Man) Monocytes % (Manual) Eosinophils % (Manual) Basophils % (Manual) Metamyelocytes % Myelocytes % Promyelocytes % Blast Cells % Nucleated RBC % Seg Neutrophils # Man Band Neutrophils # Lymphocytes # (Manual) Abs React Lymphs (Man) Monocytes # (Manual) Eosinophils # (Manual) Basophils # (Manual) Metamyelocytes # Myelocytes # Promyelocytes # Blast Cells # WBC Morphology Hypersegmented Neuts Hyposegmented Neuts Hypogranular Neuts Smudge Cells Toxic Granulation Toxic Vacuolation Dohle Bodies Pelger-Huet Anomaly Raymundo Rods Platelet Estimate Clumped Platelets Plt Clumps, EDTA Large Platelets Giant Platelets Platelet Satelliting Plt Morphology Comment RBC Morphology Dimorphic RBCs Polychromasia Hypochromasia Poikilocytosis Anisocytosis Microcytosis Macrocytosis Spherocytes None seen Pappenheimer Bodies Sickle Cells Target Cells Tear Drop Cells Ovalocytes Helmet Cells [place] Bodies Energy Rings Gladys Cells Bite Cells Crenated Cell Elliptocytes Acanthocytes (Spur) Rouleaux Hemoglobin C Crystals Schistocytes Malaria parasites Eduin Bodies Hem Pathologist Commnt PT 13.9 INR 1.02 APTT 35.5 Sodium Potassium Chloride Carbon Dioxide Anion Gap BUN Creatinine Estimated GFR BUN/Creatinine Ratio Glucose POC Glucose Lactic Acid Calcium Total Bilirubin AST ALT Alkaline Phosphatase Troponin T Total Protein Albumin Albumin/Globulin Ratio Vitamin B12 Folate TSH Urine Color Urine Turbidity Urine pH Ur Specific [place] Urine Protein Urine Glucose (UA) Urine Ketones Urine Blood Urine Nitrite Urine Bilirubin Urine Urobilinogen Ur Leukocyte Esterase Urine WBC (Auto) Urine RBC (Auto) U Epithel Cells (Auto) Urine Mucus Hepatitis A IgM Ab Non-reactive Hep Bs Antigen Non-reactive HIV 1&2 Antibody Rapid Non react HIV P24 Antigen Non react Schistocytes Smear None seen Blood Type Antibody Screen 10/16/17 10/16/17 10/16/17 07:18 07:18 07:18 WBC RBC Hgb Hct MCV MCH MCHC RDW Plt Count Add Manual Diff Total Counted Seg Neuts % (Manual) Band Neutrophils % Lymphocytes % (Manual) Reactive Lymphs % (Man) Monocytes % (Manual) Eosinophils % (Manual) Basophils % (Manual) Metamyelocytes % Myelocytes % Promyelocytes % Blast Cells % Nucleated RBC % Seg Neutrophils # Man Band Neutrophils # Lymphocytes # (Manual) Abs React Lymphs (Man) Monocytes # (Manual) Eosinophils # (Manual) Basophils # (Manual) Metamyelocytes # Myelocytes # Promyelocytes # Blast Cells # WBC Morphology Hypersegmented Neuts Hyposegmented Neuts Hypogranular Neuts Smudge Cells Toxic Granulation Toxic Vacuolation Dohle Bodies Pelger-Huet Anomaly Raymundo Rods Platelet Estimate Clumped Platelets Plt Clumps, EDTA Large Platelets Giant Platelets Platelet Satelliting Plt Morphology Comment RBC Morphology Dimorphic RBCs Polychromasia Hypochromasia Poikilocytosis Anisocytosis Microcytosis Macrocytosis Spherocytes Pappenheimer Bodies Sickle Cells Target Cells Tear Drop Cells Ovalocytes Helmet Cells [place] Bodies Energy Rings Gladys Cells Bite Cells Crenated Cell Elliptocytes Acanthocytes (Spur) Rouleaux Hemoglobin C Crystals Schistocytes Malaria parasites Eduin Bodies Hem Pathologist Commnt PT INR APTT Sodium Potassium Chloride Carbon Dioxide Anion Gap BUN Creatinine Estimated GFR BUN/Creatinine Ratio Glucose POC Glucose Lactic Acid 0.80 Calcium Total Bilirubin AST ALT Alkaline Phosphatase Troponin T < 0.010 Total Protein Albumin Albumin/Globulin Ratio Vitamin B12 Folate TSH Urine Color Urine Turbidity Urine pH Ur Specific [place] Urine Protein Urine Glucose (UA) Urine Ketones Urine Blood Urine Nitrite Urine Bilirubin Urine Urobilinogen Ur Leukocyte Esterase Urine WBC (Auto) Urine RBC (Auto) U Epithel Cells (Auto) Urine Mucus Hepatitis A IgM Ab Hep Bs Antigen HIV 1&2 Antibody Rapid HIV P24 Antigen Schistocytes Smear Blood Type O POSITIVE Antibody Screen Negative 10/16/17 10/16/17 10/16/17 07:18 07:18 07:18 WBC RBC Hgb Hct MCV MCH MCHC RDW Plt Count Add Manual Diff Total Counted Seg Neuts % (Manual) Band Neutrophils % Lymphocytes % (Manual) Reactive Lymphs % (Man) Monocytes % (Manual) Eosinophils % (Manual) Basophils % (Manual) Metamyelocytes % Myelocytes % Promyelocytes % Blast Cells % Nucleated RBC % Seg Neutrophils # Man Band Neutrophils # Lymphocytes # (Manual) Abs React Lymphs (Man) Monocytes # (Manual) Eosinophils # (Manual) Basophils # (Manual) Metamyelocytes # Myelocytes # Promyelocytes # Blast Cells # WBC Morphology Hypersegmented Neuts Hyposegmented Neuts Hypogranular Neuts Smudge Cells Toxic Granulation Toxic Vacuolation Dohle Bodies Pelger-Huet Anomaly Raymundo Rods Platelet Estimate Clumped Platelets Plt Clumps, EDTA Large Platelets Giant Platelets Platelet Satelliting Plt Morphology Comment RBC Morphology Dimorphic RBCs Polychromasia Hypochromasia Poikilocytosis Anisocytosis Microcytosis Macrocytosis Spherocytes Pappenheimer Bodies Sickle Cells Target Cells Tear Drop Cells Ovalocytes Helmet Cells [place] Bodies Energy Rings [place] Cells Bite Cells Crenated Cell Elliptocytes Acanthocytes (Spur) Rouleaux Hemoglobin C Crystals Schistocytes Malaria parasites Eduin Bodies Hem Pathologist Commnt PT INR APTT Sodium Potassium Chloride Carbon Dioxide Anion Gap BUN Creatinine Estimated GFR BUN/Creatinine Ratio Glucose POC Glucose Lactic Acid Calcium Total Bilirubin AST ALT Alkaline Phosphatase Troponin T Total Protein Albumin Albumin/Globulin Ratio Vitamin B12 360.5 Folate 7.41 TSH 2.180 Urine Color Urine Turbidity Urine pH Ur Specific [place] Urine Protein Urine Glucose (UA) Urine Ketones Urine Blood Urine Nitrite Urine Bilirubin Urine Urobilinogen Ur Leukocyte Esterase Urine WBC (Auto) Urine RBC (Auto) U Epithel Cells (Auto) Urine Mucus Hepatitis A IgM Ab Hep Bs Antigen HIV 1&2 Antibody Rapid HIV P24 Antigen Schistocytes Smear Blood Type Antibody Screen 10/16/17 08:00 WBC RBC Hgb Hct MCV MCH MCHC RDW Plt Count Add Manual Diff Total Counted Seg Neuts % (Manual) Band Neutrophils % Lymphocytes % (Manual) Reactive Lymphs % (Man) Monocytes % (Manual) Eosinophils % (Manual) Basophils % (Manual) Metamyelocytes % Myelocytes % Promyelocytes % Blast Cells % Nucleated RBC % Seg Neutrophils # Man Band Neutrophils # Lymphocytes # (Manual) Abs React Lymphs (Man) Monocytes # (Manual) Eosinophils # (Manual) Basophils # (Manual) Metamyelocytes # Myelocytes # Promyelocytes # Blast Cells # WBC Morphology Hypersegmented Neuts Hyposegmented Neuts Hypogranular Neuts Smudge Cells Toxic Granulation Toxic Vacuolation Dohle Bodies Pelger-Huet Anomaly Raymundo Rods Platelet Estimate Clumped Platelets Plt Clumps, EDTA Large Platelets Giant Platelets Platelet Satelliting Plt Morphology Comment RBC Morphology Dimorphic RBCs Polychromasia Hypochromasia Poikilocytosis Anisocytosis Microcytosis Macrocytosis Spherocytes Pappenheimer Bodies Sickle Cells Target Cells Tear Drop Cells Ovalocytes Helmet Cells [place] Bodies Energy Rings [place] Cells Bite Cells Crenated Cell Elliptocytes Acanthocytes (Spur) Rouleaux Hemoglobin C Crystals Schistocytes Malaria parasites Eduin Bodies Hem Pathologist Commnt PT INR APTT Sodium Potassium Chloride Carbon Dioxide Anion Gap BUN Creatinine Estimated GFR BUN/Creatinine Ratio Glucose POC Glucose 92 Lactic Acid Calcium Total Bilirubin AST ALT Alkaline Phosphatase Troponin T Total Protein Albumin Albumin/Globulin Ratio Vitamin B12 Folate TSH Urine Color Urine Turbidity Urine pH Ur Specific [place] Urine Protein Urine Glucose (UA) Urine Ketones Urine Blood Urine Nitrite Urine Bilirubin Urine Urobilinogen Ur Leukocyte Esterase Urine WBC (Auto) Urine RBC (Auto) U Epithel Cells (Auto) Urine Mucus Hepatitis A IgM Ab Hep Bs Antigen HIV 1&2 Antibody Rapid HIV P24 Antigen Schistocytes Smear Blood Type Antibody Screen - Imaging and cardiology CT scan - abdomen: report reviewed (fluid in bowels) Assessment and Plan Leukopenia - Neutropenia - def work up including smear to evaluate for primary vs sec cytopenia. anemia Low plt CT abdo done pt had fever - ID following - pt on meds BP slightly low - on Rx h/o loss of wt - will follow - etiology unclear at this time - Patient Problems (1) Neutropenia Onset Date: ~10/16/17 Current Visit: Yes Status: Acute Qualifiers: Neutropenia type: unspecified Qualified Code(s): D70.9 - Neutropenia, unspecified
[2017-10-16 10:32] LABS: Hepatitis B Core IgM Non-Reactive (NonReactive); Hepatitis C Virus Antibody Nonreactive (NonReactive)
[2017-10-16] MEDS ORDERED: MORPHINE IV ONE (10:53)
[2017-10-16] MEDS: MORPHINE IV PRN ×2 (15:41→20:12)
[2017-10-16] MEDS: NACL 0.9% 1000 ML 1,000 ML IV SCH ×2 (15:42→19:28)
[2017-10-16] MEDS: RESTORIL PO PRN (20:57)
[2017-10-17] MEDS: MORPHINE IV PRN ×6 (00:16→21:40)
[2017-10-17] MEDS: NACL 0.9% 1000 ML 1,000 ML IV SCH ×3 (04:01→18:30)
[2017-10-17 06:41] LABS: Hematocrit 24.7 % (35.5-45.6); Hemoglobin 8.5 gm/dl (11.8-15.2); Mean Corpuscular HGB Conc 35 % (32-34); Mean Corpuscular Hemoglobin 41 pg (28-32); Red Cell Distribution Width 13.4 % (13.2-15.2)
[2017-10-17 06:58] LABS: Mean Corpuscular Volume 117 fl (84-94); Platelet Count 88 K/mm3 (140-440)
[2017-10-17 07:01] LABS: BUN/Creatinine Ratio 8; Blood Urea Nitrogen 7 mg/dL (9-20); Calcium 7.6 mg/dL (8.4-10.2); Hemolysis Index 35
[2017-10-17] MEDS: ROCEPHIN/NS 1 GM/50 ML 1 GM/50 ML BAG IV SCH (10:41)
--- NOTE | 2017-10-17 12:42 | Hem/Onc Progress Note ---
Assessment and Plan Leukopenia - Neutropenia - D/w path reg smear to evaluate for primary vs sec cytopenia. D/w pt that if no infective cause is found - then we will look into BMBx anemia Low plt CT abdo done pt had fever - ID following - IX ongoing for infective etiology BP was slightly low in ER h/o loss of wt - will follow - etiology unclear at this time - Patient Problems (1) Neutropenia Onset Date: ~10/16/17 Current Visit: Yes Status: Acute Qualifiers: Neutropenia type: unspecified Qualified Code(s): D70.9 - Neutropenia, unspecified Subjective Date of service: 10/17/17 Principal diagnosis: cytopenia Interval history: feeling better, eating better Objective - Constitutional Vitals: Last Vital Signs Temp 98.5 F 10/17/17 06:27 Pulse 69 10/17/17 06:27 Resp 18 10/17/17 06:27 BP 105/55 10/17/17 06:27 Pulse Ox 96 10/17/17 06:27 General appearance: no acute distress - EENT Eyes: PERRL ENT: clear oral mucosa Lymph node exam: negative cervical, negative supraclavicular - Neck Neck: supple - Respiratory Respiratory effort: Positive: normal Respiratory: negative: CTA - Cardiovascular Heart Sounds: Present: S1 & S2 Extremities: No edema - Gastrointestinal General gastrointestinal: Present: soft, non-tender Rectal Exam: deferred - Genitourinary Male genitourinary: Present: deferred - Neurologic Neurologic: moves all extremities - Labs Lab Results: Laboratory Results - last 24 hr 10/16/17 10/16/17 10/17/17 07:18 13:57 06:15 WBC 1.9 L* RBC 2.10 L Hgb 8.5 L Hct 24.7 L MCV 117 H MCH 41 H MCHC 35 H RDW 13.4 Plt Count 88 L Sodium Potassium Chloride Carbon Dioxide Anion Gap BUN Creatinine Estimated GFR BUN/Creatinine Ratio Glucose POC Glucose 92 Calcium Lactate Dehydrogenase 243 H 10/17/17 10/17/17 10/17/17 06:15 06:31 11:31 WBC RBC Hgb Hct MCV MCH MCHC RDW Plt Count Sodium 133 L Potassium 4.2 Chloride 100.0 Carbon Dioxide 22 Anion Gap 15 BUN 7 L Creatinine 0.9 Estimated GFR > 60 BUN/Creatinine Ratio 8 Glucose 97 POC Glucose 102 121 H Calcium 7.6 L Lactate Dehydrogenase
[2017-10-17] MEDS ORDERED: DILAUDID IV ONE (14:50)
[2017-10-17] MEDS ORDERED: CITRATE OF MAGNESIA PO ONE (16:00)
--- NOTE | 2017-10-17 16:19 | Progress Note ---
Assessment and Plan Assessment: 1) SIRS: still fever and neutropenia. Etiology unclear. DDX: mononucleosis syndrome vs UTI / prostatitis vs rectal abscess -CXR neg -CT abd neg -HIV neg -viral hep neg -CRP=2.4 2) Mild UTI 3) ? Painful rectal mass ? prostatitis ? prostate abscess ? rectal abscess 4) Weight loss: from ? mono Plan: -GI med consult and Urology consult -follow-up blood cultures, urine culture -f/u EBV and CMV serology -stop ceftriaxone -start cefepime and flagyl Discussed w Dr Velazquez Thank you for your consultation, will follow up with you. Tina Brooke MD Infectious Diseases Specialist [facility] ([facility]) M [phone] O [phone] Subjective Date of service: 10/17/17 Principal diagnosis: cytopenia Interval history: Feels ok, tmax 100.1, c/o severe rectal pain, he is avoiding having a BM due to pain Microbiology: Blood cultures: 10/16 ngtd Urine cx: 10/16 <10K multiple sp Current Antimicrobials: ceftriaxone Previous Antimicrobials: Objective - Exam Narrative Exam: General appearance: Alert in NAD, conversant Eyes: anicteric sclerae, moist conjunctivae; no lid-lag; PERRLA HENT: Atraumatic; oropharynx clear with moist mucous membranes and no mucosal ulcerations/no oral thrush; normal hard and soft palate. Normal external ears. Neck: Trachea midline; supple, no thyromegaly or lymphadenopathy Lungs: CTA, with normal respiratory effort and no intercostal retractions CV: RRR, no murmurs Abdomen: Soft, non-tender; no masses or hepatosplenomegaly Extremities: No peripheral edema or extremity lymphadenopathy Skin: Superficial nodules at the [place] area. [place] Cervical lymph node palpable. Psych: Appropriate affect, alert and oriented to person, place and time. Neuro: alert and oriented x 3. Moving all extermities Rectal: +rectal exam normal sphincter + severe tender mass upon insertion of finger - Constitutional Vitals: Vital Signs Temp Pulse Resp BP Pulse Ox 98.4 F 69 18 110/53 95 10/17/17 12:27 10/17/17 12:27 10/17/17 12:27 10/17/17 12:27 10/17/17 12:27 Temperature -Last 24 Hours Temperature 98.4 F Temperature 98.5 F Temperature 99.7 F Temperature 100.1 F Temperature 99.4 F - Labs CBC & Chem 7: 10/17/17 06:15 10/17/17 06:15 Labs: Abnormal lab results 10/16/17 10/17/17 10/17/17 Range/Units 04:07 06:15 06:15 WBC 1.9 L* 1.9 L* (4.5-11.0) K/mm3 RBC 2.58 L 2.10 L (3.65-5.03) M/mm3 Hgb 10.3 L 8.5 L (11.8-15.2) gm/dl Hct 29.7 L 24.7 L (35.5-45.6) % MCV 115 H 117 H (84-94) fl MCH 40 H 41 H (28-32) pg MCHC 35 H 35 H (32-34) % Plt Count 105 L 88 L (140-440) K/mm3 Seg Neuts % (Manual) 30.0 L (40.0-70.0) % Lymphocytes % (Manual) 54.0 H (13.4-35.0) % Monocytes % (Manual) 12.0 H (0.0-7.3) % Seg Neutrophils # Man 0.6 L (1.8-7.7) K/mm3 Lymphocytes # (Manual) 1.0 L (1.2-5.4) K/mm3 Sodium 133 L (137-145) mmol/L BUN 7 L (9-20) mg/dL POC Glucose (70-105) Calcium 7.6 L (8.4-10.2) mg/dL 10/17/17 Range/Units 11:31 WBC (4.5-11.0) K/mm3 RBC (3.65-5.03) M/mm3 Hgb (11.8-15.2) gm/dl Hct (35.5-45.6) % MCV (84-94) fl MCH (28-32) pg MCHC (32-34) % Plt Count (140-440) K/mm3 Seg Neuts % (Manual) (40.0-70.0) % Lymphocytes % (Manual) (13.4-35.0) % Monocytes % (Manual) (0.0-7.3) % Seg Neutrophils # Man (1.8-7.7) K/mm3 Lymphocytes # (Manual) (1.2-5.4) K/mm3 Sodium (137-145) mmol/L BUN (9-20) mg/dL POC Glucose 121 H (70-105) Calcium (8.4-10.2) mg/dL
--- NOTE | 2017-10-17 16:36 | Consultation ---
History of Present Illness - Reason for Consult Consult date: 10/17/17 rectal pain - History of Present Illness Mr. Lundy is a 42-year-old male who presented to the emergency room with multiple complaints. He was found to be pancytopenic, and admitted. He was seen by infectious diseases and found to have pain on rectal exam. GI consultation is obtained. 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 Patient states that for the last 1-2 weeks, he has had difficulty with defecation and pain on defecation to where he does not one to go. His bowel movements have been loose. Normally has bowel movements 2 or 3 times a day. There's been no GI bleeding. He has noted weakness and fevers. He was evaluated here and had a negative CT scan. He was found to be pancytopenic. HIV was checked and found to be negative. He denies any rectal trauma. He denies any prior similar symptoms. Past History Past Medical History: denies: acute [place] Past Surgical History: Other (pleural effusion with drainage complication of a pneumonia) Social history: lives with family, smoking (1 ppd). denies: alcohol abuse Family history: no significant family history Medications and Allergies Allergies Allergy/AdvReac Type Severity Reaction Status Date / Time No Known Allergies Allergy Verified 10/16/17 06:35 Home Medications Medication Instructions Recorded Confirmed Last Taken Type No Known Home Medications [No 10/16/17 10/16/17 Unknown History Reported Home Medications] Active Meds: Active Medications Sodium Chloride (Nacl 0.9% 1000 Ml) 1,000 mls @ 150 mls/hr IV DIRECT ANGELITO Last Admin: 10/17/17 10:42 Dose: 150 mls/hr Metronidazole (Flagyl 500 Mg/100 Ml) 500 mg in 100 mls @ 100 mls/hr IV Q8HR ANGELITO ; Protocol Cefepime HCl (Maxipime/Ns 2 Gm/100 Ml) 2 gm in 100 mls @ 200 mls/hr IV Q8HR ANGELITO ; Protocol Morphine Sulfate (Morphine) 2 mg IV Q4H PRN PRN Reason: Pain, Moderate (4-6) Last Admin: 10/17/17 12:15 Dose: 2 mg Temazepam (Restoril) 15 mg PO QHS PRN PRN Reason: Sleep Last Admin: 10/16/17 20:57 Dose: 15 mg Review of Systems All systems: negative (as noted in HPI) Exam - Constitutional Vitals: Temp Pulse Resp BP Pulse Ox 98.4 F 69 18 110/53 95 10/17/17 12:27 10/17/17 12:27 10/17/17 12:27 10/17/17 12:27 10/17/17 12:27 General appearance: Present: no acute distress - EENT Eyes: Present: PERRL, EOM intact ENT: hearing intact - Neck Neck: Present: supple - Respiratory Respiratory effort: normal Respiratory: bilateral: CTA - Cardiovascular Rhythm: regular Heart Sounds: Present: S1 & S2 - Extremities Extremities: No edema - Abdominal General gastrointestinal: Present: soft, non-tender, normal bowel sounds - Rectal Rectal Exam: tenderness (exquisitely tender, but normal external appearance. No blood or masses, though boggy area noted at 9 o'clock), other Results - Labs CBC & Chem 7: 10/17/17 06:15 10/17/17 06:15 Labs: Abnormal lab results 10/16/17 10/17/17 10/17/17 Range/Units 04:07 06:15 06:15 WBC 1.9 L* 1.9 L* (4.5-11.0) K/mm3 RBC 2.58 L 2.10 L (3.65-5.03) M/mm3 Hgb 10.3 L 8.5 L (11.8-15.2) gm/dl Hct 29.7 L 24.7 L (35.5-45.6) % MCV 115 H 117 H (84-94) fl MCH 40 H 41 H (28-32) pg MCHC 35 H 35 H (32-34) % Plt Count 105 L 88 L (140-440) K/mm3 Seg Neuts % (Manual) 30.0 L (40.0-70.0) % Lymphocytes % (Manual) 54.0 H (13.4-35.0) % Monocytes % (Manual) 12.0 H (0.0-7.3) % Seg Neutrophils # Man 0.6 L (1.8-7.7) K/mm3 Lymphocytes # (Manual) 1.0 L (1.2-5.4) K/mm3 Sodium 133 L (137-145) mmol/L BUN 7 L (9-20) mg/dL POC Glucose (70-105) Calcium 7.6 L (8.4-10.2) mg/dL 10/17/17 Range/Units 11:31 WBC (4.5-11.0) K/mm3 RBC (3.65-5.03) M/mm3 Hgb (11.8-15.2) gm/dl Hct (35.5-45.6) % MCV (84-94) fl MCH (28-32) pg MCHC (32-34) % Plt Count (140-440) K/mm3 Seg Neuts % (Manual) (40.0-70.0) % Lymphocytes % (Manual) (13.4-35.0) % Monocytes % (Manual) (0.0-7.3) % Seg Neutrophils # Man (1.8-7.7) K/mm3 Lymphocytes # (Manual) (1.2-5.4) K/mm3 Sodium (137-145) mmol/L BUN (9-20) mg/dL POC Glucose 121 H (70-105) Calcium (8.4-10.2) mg/dL Assessment and Plan 1. Rectal tenderness - worrisome for perirectal abscess, though none noted on CT by report. Needs surgical evaluation and probable EUA. Agree with abx. 2. Macrocytic anemia/pancytopenia - pancytopenia may be due to infection. Etiology of macrocytosis is unclear, and will defer to Hem/Onc evaluation.
[2017-10-17] MEDS: FLAGYL 500 MG/100 ML 500 MG/100 ML BAG IV SCH ×2 (17:30→22:45)
--- NOTE | 2017-10-17 17:30 | Consultation ---
History of Present Illness Consult date: 10/17/17 Chief complaint: rectal pain - History of present illness History of present illness: 42 yo M with no PMHx presents with c/o rectal pain x2 weeks. He states the pain is pressure like and he feels that there is a "ball" in his rectum that is preventing stool from coming out. He states he feels the sensation to have a BM but nothing will come out. When he does have a BM, it feels like something is obstructing a portion of his rectum. He has also been having difficulty urinating and starting a stream. He also c/o fevers and chills. He has never had any symptoms like this before. There were no factors that he feels brought the pain on. He has been traveling back and forth from [place] to [place] to arrange his grandmothers and the symptoms came along at the same time. He denies abdominal pain, n/v, chest pain, sob, abd pain. Past History Past Medical History: denies: acute OH Past Surgical History: Other (pleural effusion with drainage complication of a pneumonia) Social history: lives with family, smoking (1 ppd). denies: alcohol abuse Family history: no significant family history Medications and Allergies Allergies Allergy/AdvReac Type Severity Reaction Status Date / Time No Known Allergies Allergy Verified 10/16/17 06:35 Home Medications Medication Instructions Recorded Confirmed Last Taken Type No Known Home Medications [No 10/16/17 10/16/17 Unknown History Reported Home Medications] Active Meds: Active Medications Sodium Chloride (Nacl 0.9% 1000 Ml) 1,000 mls @ 150 mls/hr IV DIRECT ANGELITO Last Admin: 10/17/17 10:42 Dose: 150 mls/hr Metronidazole (Flagyl 500 Mg/100 Ml) 500 mg in 100 mls @ 100 mls/hr IV Q8HR ANGELITO ; Protocol Cefepime HCl (Maxipime/Ns 2 Gm/100 Ml) 2 gm in 100 mls @ 200 mls/hr IV Q8HR ANGELITO ; Protocol Morphine Sulfate (Morphine) 2 mg IV Q4H PRN PRN Reason: Pain, Moderate (4-6) Last Admin: 10/17/17 12:15 Dose: 2 mg Temazepam (Restoril) 15 mg PO QHS PRN PRN Reason: Sleep Last Admin: 10/16/17 20:57 Dose: 15 mg Review of Systems All systems: negative (10 pt ROS performed and negative except for that listed in HPI) Exam Vital Signs Temp Pulse Resp BP Pulse Ox 99.6 F 95 H 18 94/56 98 10/16/17 02:27 10/16/17 02:27 10/16/17 02:27 10/16/17 02:27 10/16/17 02:27 Narrative exam: Gen: AAOx3. NAD CV: S1, S2+ Resp: even and unlabored Abd: soft Ext: no c/c/e Rectal: no gross blood, normal rectal tone. No external pathology. + exquisite TTP at 9 oclock (posterior left) position of rectum with rough mucosa. No fluctuance. No drainage. Liquid brown stool in rectal vault. Results - Labs 10/17/17 06:15 10/17/17 06:15 Abnormal lab results 10/16/17 10/17/17 10/17/17 Range/Units 04:07 06:15 06:15 WBC 1.9 L* 1.9 L* (4.5-11.0) K/mm3 RBC 2.58 L 2.10 L (3.65-5.03) M/mm3 Hgb 10.3 L 8.5 L (11.8-15.2) gm/dl Hct 29.7 L 24.7 L (35.5-45.6) % MCV 115 H 117 H (84-94) fl MCH 40 H 41 H (28-32) pg MCHC 35 H 35 H (32-34) % Plt Count 105 L 88 L (140-440) K/mm3 Seg Neuts % (Manual) 30.0 L (40.0-70.0) % Lymphocytes % (Manual) 54.0 H (13.4-35.0) % Monocytes % (Manual) 12.0 H (0.0-7.3) % Seg Neutrophils # Man 0.6 L (1.8-7.7) K/mm3 Lymphocytes # (Manual) 1.0 L (1.2-5.4) K/mm3 Sodium 133 L (137-145) mmol/L BUN 7 L (9-20) mg/dL POC Glucose (70-105) Calcium 7.6 L (8.4-10.2) mg/dL 10/17/17 Range/Units 11:31 WBC (4.5-11.0) K/mm3 RBC (3.65-5.03) M/mm3 Hgb (11.8-15.2) gm/dl Hct (35.5-45.6) % MCV (84-94) fl MCH (28-32) pg MCHC (32-34) % Plt Count (140-440) K/mm3 Seg Neuts % (Manual) (40.0-70.0) % Lymphocytes % (Manual) (13.4-35.0) % Monocytes % (Manual) (0.0-7.3) % Seg Neutrophils # Man (1.8-7.7) K/mm3 Lymphocytes # (Manual) (1.2-5.4) K/mm3 Sodium (137-145) mmol/L BUN (9-20) mg/dL POC Glucose 121 H (70-105) Calcium (8.4-10.2) mg/dL Diabetes panel 10/17/17 Range/Units 06:15 Sodium 133 L (137-145) mmol/L Potassium 4.2 (3.6-5.0) mmol/L Chloride 100.0 (98-107) mmol/L Carbon Dioxide 22 (22-30) mmol/L BUN 7 L (9-20) mg/dL Creatinine 0.9 (0.8-1.5) mg/dL Glucose 97 (75-100) mg/dL Calcium 7.6 L (8.4-10.2) mg/dL Calcium panel 10/17/17 Range/Units 06:15 Calcium 7.6 L (8.4-10.2) mg/dL Pituitary panel 10/17/17 Range/Units 06:15 Sodium 133 L (137-145) mmol/L Potassium 4.2 (3.6-5.0) mmol/L Chloride 100.0 (98-107) mmol/L Carbon Dioxide 22 (22-30) mmol/L BUN 7 L (9-20) mg/dL Creatinine 0.9 (0.8-1.5) mg/dL Glucose 97 (75-100) mg/dL Calcium 7.6 L (8.4-10.2) mg/dL Adrenal panel 10/17/17 Range/Units 06:15 Sodium 133 L (137-145) mmol/L Potassium 4.2 (3.6-5.0) mmol/L Chloride 100.0 (98-107) mmol/L Carbon Dioxide 22 (22-30) mmol/L BUN 7 L (9-20) mg/dL Creatinine 0.9 (0.8-1.5) mg/dL Glucose 97 (75-100) mg/dL Calcium 7.6 L (8.4-10.2) mg/dL - Imaging CT scan - abdomen: report reviewed, image reviewed CT scan - pelvis: report reviewed, image reviewed Assessment and Plan 42 yo M with rectal pain, r/o abscess vs other etiology, pancytopenia Ct Scan A/P reviewed - no rectal abscess seen, no rectal inflammation Plan: 1. Patient symptoms will require Rectal EUA to determine cause of rectal pain, will schedule for Rectal EUA in am 2. NPO p MN 3. prn pain control 4. stool softeners prn 5. ID on board 6. GI recs noted 7. ?leukemia - pt has famhx, ?HIV. w/u per ID and hematology Thank you for this consultation, please call with questions or concerns.
[2017-10-17] MEDS: MAXIPIME/NS 2 GM/100 ML 2 GM/100 ML BAG IV SCH ×2 (17:50→22:00)
[2017-10-17 20:49] LABS: HIV-1 RNA QN PCR <1.30 Log cps/mL; HIV-1 RNA QN PCR <20 Copies/mL
[2017-10-17] MEDS: RESTORIL PO PRN (21:40)
--- NOTE | 2017-10-17 22:06 | Progress Note ---
Assessment and Plan Assessment and plan: 42 year old male with weakness, near syncope worse with movement, chills, persistent nausea, with no associated diarrhea or shortness of breath. The patient reports that this started about 2 weeks ago and was seen in the hospital in [place] time for chest discomfort was clipped from the ER. He reports feeling better but symptoms recurred the last week presented him to come to the hospital as he was unable to keep any food down. On arrival to the hospital and was noted to be hypotensive with systolic blood pressure in the low 80s. While the patient denies overt alcohol abuse he does admit to tobacco use and occasional alcohol use but denies any binge drinking. He was noted to be pancytopenic and recommended for admission ?Rectal Mass vs Abscess pancytopenia Acute Cystitis Shock syndrome Acute Gastroenteritis SIRS Tobacco use disorder PLAN no growth yet. Patient had a painful rectal exam with concern for a mass Sepsis protocol, will give additional fluids Jennings work up currently on going from ED including cultures Counselling about tobacco cessation Empiric abx coverage Hepatitis profile and HIV non-reactive ID and Hematology input noted,. awaiting peripheral smear Neutropenic precautions CT abd reviewed no signincant mass Pain control DVT/GI proph plan discussed with ID, patient and ED physician. The high probability of a clinically significant, sudden or life threatening deterioration of the [GI, renal] system(s) required my full and direct attention , intervention and personal management. The aggregate critical care time was [35 ] minutes. This time is in addition to time spent performing reported procedures but includes the following: [X Data Review and interpretation [X] Patient assessment and monitoring of vital signs [X Documentation [X] Medication orders and management History Interval history: Patient seen and examined today, complaints of pain with defecation. Patient reports he has not been able to move his bowel due to fear of pain. Hospitalist Physical - Physical exam Narrative exam: VITAL SIGNS: Reviewed. GENERAL: The patient appeared well nourished and normally developed has a little lethargic. Vital signs as documented. HEAD: No signs of head trauma. EYES: Pupils are equal. Extraocular motions intact. EARS: Hearing grossly intact. MOUTH: Oropharynx is normal. NECK: No adenopathy, no JVD. CHEST: Chest with clear breath sounds bilaterally. No wheezes, rales, or rhonchi. CARDIAC: Regular rate and rhythm. S1 and S2, without murmurs, gallops, or rubs. VASCULAR: No Edema. Peripheral pulses normal and equal in all extremities. ABDOMEN: Soft, without detectable tenderness. No sign of distention. No rebound or guarding, and no masses palpated. Bowel Sounds normal. MUSCULOSKELETAL: Good range of motion of all major joints. Extremities without clubbing, cyanosis or edema. NEUROLOGIC EXAM: Alert and oriented x 3. No focal sensory or strength deficits. Speech normal. Follows commands. PSYCHIATRIC: Mood normal. SKIN: No rash or lesions. - Constitutional Vitals: Temp Pulse Resp BP Pulse Ox 98.4 F 71 18 130/67 99 10/17/17 16:44 10/17/17 16:44 10/17/17 16:44 10/17/17 16:44 10/17/17 16:44 General appearance: Present: no acute distress Results - Labs CBC & Chem 7: 10/17/17 06:15 10/17/17 06:15 Labs: Laboratory Last Values WBC 1.9 K/mm3 (4.5-11.0) L* 10/17/17 06:15 RBC 2.10 M/mm3 (3.65-5.03) L 10/17/17 06:15 Hgb 8.5 gm/dl (11.8-15.2) L 10/17/17 06:15 Hct 24.7 % (35.5-45.6) L 10/17/17 06:15 MCV 117 fl (84-94) H 10/17/17 06:15 MCH 41 pg (28-32) H 10/17/17 06:15 MCHC 35 % (32-34) H 10/17/17 06:15 RDW 13.4 % (13.2-15.2) 10/17/17 06:15 Plt Count 88 K/mm3 (140-440) L 10/17/17 06:15 Add Manual Diff Complete 10/16/17 04:07 Total Counted 50 10/16/17 04:07 Seg Neuts % (Manual) 30.0 % (40.0-70.0) L 10/16/17 04:07 Band Neutrophils % 4.0 % 10/16/17 04:07 Lymphocytes % (Manual) 54.0 % (13.4-35.0) H 10/16/17 04:07 Reactive Lymphs % (Man) 0 % 10/16/17 04:07 Monocytes % (Manual) 12.0 % (0.0-7.3) H 10/16/17 04:07 Eosinophils % (Manual) 0 % (0.0-4.3) 10/16/17 04:07 Basophils % (Manual) 0 % (0.0-1.8) 10/16/17 04:07 Metamyelocytes % 0 % 10/16/17 04:07 Myelocytes % 0 % 10/16/17 04:07 Promyelocytes % 0 % 10/16/17 04:07 Blast Cells % 0 % 10/16/17 04:07 Nucleated RBC % Not Reportable 10/16/17 04:07 Seg Neutrophils # Man 0.6 K/mm3 (1.8-7.7) L 10/16/17 04:07 Band Neutrophils # 0.1 K/mm3 10/16/17 04:07 Lymphocytes # (Manual) 1.0 K/mm3 (1.2-5.4) L 10/16/17 04:07 Abs React Lymphs (Man) 0.0 K/mm3 10/16/17 04:07 Monocytes # (Manual) 0.2 K/mm3 (0.0-0.8) 10/16/17 04:07 Eosinophils # (Manual) 0.0 K/mm3 (0.0-0.4) 10/16/17 04:07 Basophils # (Manual) 0.0 K/mm3 (0.0-0.1) 10/16/17 04:07 Metamyelocytes # 0.0 K/mm3 10/16/17 04:07 Myelocytes # 0.0 K/mm3 10/16/17 04:07 Promyelocytes # 0.0 K/mm3 10/16/17 04:07 Blast Cells # 0.0 K/mm3 10/16/17 04:07 Pathologist Review 10/16/17 04:07 WBC Morphology Not Reportable 10/16/17 04:07 Hypersegmented Neuts Not Reportable 10/16/17 04:07 Hyposegmented Neuts Not Reportable 10/16/17 04:07 Hypogranular Neuts Not Reportable 10/16/17 04:07 Smudge Cells Not Reportable 10/16/17 04:07 Toxic Granulation Rare 10/16/17 04:07 Toxic Vacuolation Not Reportable 10/16/17 04:07 Dohle Bodies Not Reportable 10/16/17 04:07 Pelger-Huet Anomaly Not Reportable 10/16/17 04:07 Raymundo Rods Not Reportable 10/16/17 04:07 Platelet Estimate Appears decreased 10/16/17 04:07 Clumped Platelets Not Reportable 10/16/17 04:07 Plt Clumps, EDTA Not Reportable 10/16/17 04:07 Large Platelets Not Reportable 10/16/17 04:07 Giant Platelets Not Reportable 10/16/17 04:07 Platelet Satelliting Not Reportable 10/16/17 04:07 Plt Morphology Comment Not Reportable 10/16/17 04:07 RBC Morphology Not Reportable 10/16/17 04:07 Dimorphic RBCs Not Reportable 10/16/17 04:07 Polychromasia Not Reportable 10/16/17 04:07 Hypochromasia Not Reportable 10/16/17 04:07 Poikilocytosis Not Reportable 10/16/17 04:07 Anisocytosis Not Reportable 10/16/17 04:07 Microcytosis Not Reportable 10/16/17 04:07 Macrocytosis Not Reportable 10/16/17 04:07 Spherocytes None seen 10/16/17 07:18 Pappenheimer Bodies Not Reportable 10/16/17 04:07 Sickle Cells Not Reportable 10/16/17 04:07 Target Cells Not Reportable 10/16/17 04:07 Tear Drop Cells Not Reportable 10/16/17 04:07 Ovalocytes Not Reportable 10/16/17 04:07 Helmet Cells Not Reportable 10/16/17 04:07 Whalen-Hebo Bodies Not Reportable 10/16/17 04:07 Kismet Rings Not Reportable 10/16/17 04:07 Gladys Cells Not Reportable 10/16/17 04:07 Bite Cells Not Reportable 10/16/17 04:07 Crenated Cell Not Reportable 10/16/17 04:07 Elliptocytes Not Reportable 10/16/17 04:07 Acanthocytes (Spur) Not Reportable 10/16/17 04:07 Rouleaux Not Reportable 10/16/17 04:07 Hemoglobin C Crystals Not Reportable 10/16/17 04:07 Schistocytes Not Reportable 10/16/17 04:07 Malaria parasites Not Reportable 10/16/17 04:07 Eduin Bodies Not Reportable 10/16/17 04:07 Hem Pathologist Commnt Sent to pathology 10/16/17 04:07 PT 13.9 Sec. (12.2-14.9) 10/16/17 07:18 INR 1.02 (0.87-1.13) 10/16/17 07:18 APTT 35.5 Sec. (24.2-36.6) 10/16/17 07:18 Sodium 133 mmol/L (137-145) L 10/17/17 06:15 Potassium 4.2 mmol/L (3.6-5.0) 10/17/17 06:15 Chloride 100.0 mmol/L (98-107) 10/17/17 06:15 Carbon Dioxide 22 mmol/L (22-30) 10/17/17 06:15 Anion Gap 15 mmol/L 10/17/17 06:15 BUN 7 mg/dL (9-20) L 10/17/17 06:15 Creatinine 0.9 mg/dL (0.8-1.5) 10/17/17 06:15 Estimated GFR > 60 ml/min 10/17/17 06:15 BUN/Creatinine Ratio 8 % 10/17/17 06:15 Glucose 97 mg/dL (75-100) 10/17/17 06:15 POC Glucose 121 (70-105) H 10/17/17 11:31 Lactic Acid 0.70 mmol/L (0.7-2.0) 10/16/17 11:34 Calcium 7.6 mg/dL (8.4-10.2) L 10/17/17 06:15 Total Bilirubin 0.30 mg/dL (0.1-1.2) 10/16/17 04:07 AST 14 units/L (5-40) 10/16/17 04:07 ALT 11 units/L (7-56) 10/16/17 04:07 Alkaline Phosphatase 43 units/L (35-129) 10/16/17 04:07 Lactate Dehydrogenase 243 units/L (91-180) H 10/16/17 07:18 Troponin T < 0.010 ng/mL (0.00-0.029) 10/16/17 07:18 C-Reactive Protein 2.50 mg/dL (0.00-1.30) H 10/16/17 11:34 Total Protein 6.8 g/dL (6.3-8.2) 10/16/17 04:07 Albumin 3.6 g/dL (3.9-5) L 10/16/17 04:07 Albumin/Globulin Ratio 1.1 % 10/16/17 04:07 Vitamin B12 360.5 pg/mL (211-911) 10/16/17 07:18 Folate 7.41 ng/mL (7.3-26.0) 10/16/17 07:18 TSH 2.180 mlU/mL (0.270-4.200) 10/16/17 07:18 Urine Color Haydee (Yellow) 10/16/17 06:20 Urine Turbidity Slightly-cloudy (Clear) 10/16/17 06:20 Urine pH 6.0 (5.0-7.0) 10/16/17 06:20 Ur Specific Edward 1.026 (1.003-1.030) 10/16/17 06:20 Urine Protein 100 mg/dl mg/dL (Negative) 10/16/17 06:20 Urine Glucose (UA) Neg mg/dL (Negative) 10/16/17 06:20 Urine Ketones Neg mg/dL (Negative) 10/16/17 06:20 Urine Blood Neg (Negative) 10/16/17 06:20 Urine Nitrite Neg (Negative) 10/16/17 06:20 Urine Bilirubin Neg (Negative) 10/16/17 06:20 Urine Urobilinogen 4.0 mg/dL (<2.0) 10/16/17 06:20 Ur Leukocyte Esterase Neg (Negative) 10/16/17 06:20 Urine WBC (Auto) 16.0 /HPF (0.0-6.0) H 10/16/17 06:20 Urine RBC (Auto) 8.0 /HPF (0.0-6.0) 10/16/17 06:20 U Epithel Cells (Auto) 1.0 /HPF (0-13.0) 10/16/17 06:20 Urine Mucus 3+ /HPF 10/16/17 06:20 RPR Nonreactive (Nonreactive) 10/16/17 07:18 EBV Capsid Ag IgG, IgM <36.00 U/mL (<36.00) 10/16/17 11:34 EBV Capsid Ag IgG Titer 71.00 U/mL (<18.00) H 10/16/17 11:34 EBV Nuclear Ag IgG Indx 292.00 U/mL (<18.00) H 10/16/17 11:34 EBV Interpretation Past 10/16/17 11:34 Hepatitis A IgM Ab Non-reactive (NonReactive) 10/16/17 07:18 Hep Bs Antigen Non-reactive (Negative) 10/16/17 07:18 Hep B Core IgM Ab Non-reactive (NonReactive) 10/16/17 07:18 Hepatitis C Antibody Nonreactive (NonReactive) 10/16/17 07:18 HIV-1 RNA PCR copies/ml <20 Copies/mL 10/16/17 11:34 HIV-1 RNA (PCR) log <1.30 Log cps/mL 10/16/17 11:34 HIV 1&2 Antibody Rapid Non react (Non React) 10/16/17 07:18 HIV P24 Antigen Non react (Non React) 10/16/17 07:18 Schistocytes Smear None seen 10/16/17 07:18 Blood Type O POSITIVE 10/16/17 07:18 Antibody Screen Negative 10/16/17 07:18 - Imaging and Cardiology CT scan - abdomen: image reviewed (no clear evidence of obstruction)
[2017-10-18] MEDS ORDERED: XYLOCAINE TOPICAL 2% 30ML TP ONE
[2017-10-18] MEDS: MORPHINE IV PRN ×4 (03:48→21:46)
[2017-10-18] MEDS: NACL 0.9% 1000 ML 1,000 ML IV SCH ×2 (03:49→17:39)
[2017-10-18] MEDS: TYLENOL PO PRN (03:51)
[2017-10-18 05:35] LABS: Hematocrit 24.3 % (35.5-45.6); Hemoglobin 8.3 gm/dl (11.8-15.2); Mean Corpuscular HGB Conc 34 % (32-34); Mean Corpuscular Hemoglobin 40 pg (28-32); Red Blood Count 2.09 M/mm3 (3.65-5.03); Red Cell Distribution Width 13.1 % (13.2-15.2)
[2017-10-18] MEDS: FLAGYL 500 MG/100 ML 500 MG/100 ML BAG IV SCH ×3 (06:00→21:48)
[2017-10-18] MEDS: MAXIPIME/NS 2 GM/100 ML 2 GM/100 ML BAG IV SCH ×3 (06:00→21:24)
[2017-10-18 06:01] LABS: BUN/Creatinine Ratio 6; Blood Urea Nitrogen 5 mg/dL (9-20); Hemolysis Index 12
[2017-10-18 06:35] LABS: Mean Corpuscular Volume 116 fl (84-94); Platelet Count 82 K/mm3 (140-440)
[2017-10-18] MEDS ORDERED: HYDROGEN PEROXIDE ONE (10:01)
[2017-10-18] MEDS ORDERED: MARCAINE 0.5% INFILTRATI ONE ×3 (10:02→10:03)
[2017-10-18] MEDS ORDERED: XYLOCAINE 1% 20 mL INFILTRATI ONE ×2 (10:02)
--- NOTE | 2017-10-18 10:06 | Event Note ---
Date: 10/18/17 Case reviewed and discussed with Drs. Angel and Mary Ellen. Interviewed patient this AM. VSS. Labs reviewed. NAD. appropriate conversation. breathing non- labored. discussed plan for today. Discussed procedure, risks, benefits. All questions answered. Consent obtained. Proceed to OR for EUA.
[2017-10-18] MEDS ORDERED: VERSED ONE (10:08)
[2017-10-18] MEDS ORDERED: SUBLIMAZE ONE (10:09)
[2017-10-18] MEDS ORDERED: DIPRIVAN 10 MG/ML IV ONE ×2 (10:09→10:48)
[2017-10-18] MEDS: LACTATED RINGERS 1,000 ML IV SCH ×2 (10:37→21:25)
[2017-10-18] MEDS ORDERED: XYLOCAINE MPF 2% ONE (11:06)
[2017-10-18] MEDS ORDERED: DECADRON ONE (11:06)
[2017-10-18] MEDS ORDERED: ROBINUL ONE (11:06)
--- NOTE | 2017-10-18 11:22 | Event Note ---
Date: 10/18/17 Patient off floor for rectal EUA.
[2017-10-18] MEDS ORDERED: BLOXIVERZ ONE (11:27)
[2017-10-18] MEDS ORDERED: XYLOCAINE TOPICAL 2% 5ML ONE (11:28)
[2017-10-18] MEDS ORDERED: ZEMURON IV ONE (11:29)
[2017-10-18] MEDS ORDERED: QUELICIN ONE (11:29)
[2017-10-18] MEDS: DILAUDID IV PRN ×2 (12:36→13:06)
[2017-10-18] MEDS ORDERED: DILAUDID ONE (12:39)
--- NOTE | 2017-10-18 12:45 | Post Operative Note ---
Date of procedure: 10/18/17 (Dictation:[id number]) Pre-op diagnosis: Rectal Pain Post-op diagnosis: same Findings: Large posterior anal fissure - length was about 1cm. - No fluctuant area. No mass. mild internal hemorrhoids. Procedure: EUA - 11976 Bilateral Pudenal Nerve Block - 64329 x 2 Anesthesia: PATRICK Surgeon: ROHINI SANCHEZ Estimated blood loss: minimal Pathology: none Condition: stable Disposition: PACU
[2017-10-18] MEDS: TORADOL IV PRN (12:54)
[2017-10-18] MEDS ORDERED: ZOFRAN IV PRN (13:00)
--- NOTE | 2017-10-18 13:18 | Operative Report ---
PREOPERATIVE DIAGNOSIS: Rectal pain. POSTOPERATIVE DIAGNOSIS: Rectal pain. PROCEDURE: 1. Exam under anesthesia, CPT code 21522. 2. Bilateral pudendal nerve blocks, CPT code 22436 x 2. ATTENDING SURGEON: Ever Weston MD ANESTHESIA: General. ESTIMATED BLOOD LOSS: Minimal. FLUIDS: 800 mL. FINDINGS: Relatively normal external exam. No obvious disease was noted. There were no masses or fluctuant area noted on digital exam. Anoscopy exam revealed mild internal hemorrhoids, primarily at the 3 o'clock position and less so at the 7 and 11 o'clock positions. 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 Pictures have been taken, please see pictures in the chart for further details. SPECIMENS: None. DRAINS: None. COMPLICATIONS: None. DISPOSITION: Stable, transferred to Recovery Room. INDICATIONS: This is a 42-year-old male who presented to the Emergency Room due to feeling ill. Workup revealed leukopenia and macrocytic anemia. The patient was found to have perianal pain on exam; therefore, General Surgery was consulted for further evaluation. The patient was assessed to be in need for exam under anesthesia due to the severe nature of his pain, which limited the exam at the bedside. Procedure, risks, benefits were explained to the patient. Risks included but were not limited to infection, bleeding, pain, injury to surrounding structures, possible need for further procedures in the future. The patient understood and consented. We also got permission for bilateral pudendal nerve blocks. DESCRIPTION OF PROCEDURE: The patient was brought to the operating room and placed on the table in supine position. After adequate general anesthesia established, the patient was placed in a prone jackknife position. Sterile prep and drape was performed. We made sure all the pressure points were well padded and the genitals were not in a position such that injury may occur. I began by performing an external exam. I saw no evidence of any disease on the external exam, appeared normal. Digital exam revealed fairly normal-feeling mucosa. I found no evidence of any masses. I did not find any fluctuant areas; however, there was an area that was in the posterior midline that felt as though it had a ridge to it and perhaps a slight pocket and this was consistent with multiple sweeps of that area. At this point, I went ahead and performed a pudendal block on both sides, identified the ischial tuberosity on each side. By feel, I directed the needle to the ischial tuberosity, aspirating along the way. I had no aspiration of any blood. Once I encountered the tuberosity, I then pulled the needle back slightly and then injected a combination of 0.5% Marcaine and 1% lidocaine 10 mL on each side. I then proceeded to do the endoscopic exam. We gradually increased the size of the dilators. The medium dilator seemed to work the best. We thoroughly examined all quadrants. As noted in the findings, he had some mild internal hemorrhoids, most prominent at the 3 o'clock position; however, they appeared too mild to be the cause of his severe pain. There was a slight bumpy quality in the mucosa overlying the hemorrhoids and a few small tiny papillary-type mucosa at the 9 o'clock position; however, this did not appear concerning for any sort of disease process. Evaluation of the posterior midline revealed what appeared to be a very large break in the mucosa, exposing the underlying sphincter. The sphincter itself still had a thin layer of mucosa over it, but it was clearly very denuded. The sphincter itself could almost be seen through this denuded area, but it was still covered. It felt to be a smooth circular edge, therefore not consistent with any mass. Photos were taken for further illustration of this process for the other providers. We looked at that area thoroughly, I examined it thoroughly. I felt as though there was no infectious process, I felt there was no mass or malignancy in this area. I think this is simply a chronic process that evolved into a very large fissure and reasonably explains his pain. I felt that as this was most likely denuded mucosa with underlying sphincter, there would be no benefit to biopsying this area and therefore that was not performed. There did not seem to be anything else left to do; therefore, as we had caused some minor skin trauma due to the examination, we packed the anal canal with Surgifoam covered with lidocaine jelly. The patient tolerated procedure well with no complications. All counts were correct at the end of the case. JOB# [id number] ANJANA/YUDI
--- NOTE | 2017-10-18 13:40 | Progress Note ---
Assessment and Plan Assessment: 1) SIRS: Afebrile, Neutropenic- prostatitis vs rectal abscess vs leukemia ? EBV IgM- Neg UC- less than 10,000 K BC- ngtd -CXR neg -CT abd neg -HIV neg -viral hep neg -CRP=2.4 3) ? Painful rectal mass ? prostatitis ? prostate abscess ? rectal abscess -S/P OR rectal exploration +fissure no abscess seen - should r/o herpes infection 4) Weight loss: ? Plan: -Continue cefepime and flagyl -Obtain pelvic CT w contrast to eval prostate -Agree w bone marrow biopsy -check HSV 1&2 serology -add valtrex po for herpes [facility] M: [phone] O:[phone] Subjective Date of service: 10/18/17 Principal diagnosis: cytopenia Interval history: Patient sitting up in bed, just returned from surgery. Patient states that he continues to have anal pain, but it feels better than yesterday. Current Antimmicrobials Cefepime 10/17 Flagyl - 10/17 Previous Antimicrobials Cefriaxone Objective - Exam Narrative Exam: General appearance: Alert in NAD, conversant Eyes: anicteric sclerae, moist conjunctivae; no lid-lag; PERRLA HENT: Atraumatic; oropharynx clear with moist mucous membranes and no mucosal ulcerations/no oral thrush; normal hard and soft palate. Normal external ears. Neck: Trachea midline; supple, no thyromegaly or lymphadenopathy Lungs: CTA, with normal respiratory effort and no intercostal retractions CV: RRR, no murmurs Abdomen: Soft, non-tender; no masses or hepatosplenomegaly Extremities: No peripheral edema or extremity lymphadenopathy Skin: Superficial nodules at the johnson area. Vickey Cervical lymph node palpable. Psych: Appropriate affect, alert and oriented to person, place and time. Neuro: alert and oriented x 3. Moving all extermities - Constitutional Vitals: Vital Signs Temp Pulse Resp BP Pulse Ox 97.5 F L 54 L 15 128/84 98 10/18/17 13:15 10/18/17 13:15 10/18/17 13:15 10/18/17 13:15 10/18/17 13:15 Temperature -Last 24 Hours Temperature 97.5 F Temperature 98.4 F Temperature 98.2 F Temperature 98.2 F Temperature 99.5 F Temperature 100.3 F Temperature 98.4 F - Labs CBC & Chem 7: 10/18/17 04:27 10/18/17 04:27 Labs: Abnormal lab results 10/16/17 10/18/17 10/18/17 Range/Units 11:34 04:27 04:27 WBC 1.8 L* (4.5-11.0) K/mm3 RBC 2.09 L (3.65-5.03) M/mm3 Hgb 8.3 L (11.8-15.2) gm/dl Hct 24.3 L (35.5-45.6) % MCV 116 H (84-94) fl MCH 40 H (28-32) pg RDW 13.1 L (13.2-15.2) % Plt Count 82 L (140-440) K/mm3 BUN 5 L (9-20) mg/dL Calcium 8.0 L (8.4-10.2) mg/dL EBV Capsid Ag IgG Titer 71.00 H (<18.00) U/mL EBV Nuclear Ag IgG Indx 292.00 H (<18.00) U/mL
--- NOTE | 2017-10-18 15:34 | Progress Note ---
Assessment and Plan Assessment and plan: 42 year old male with weakness, near syncope worse with movement, chills, persistent nausea, with no associated diarrhea or shortness of breath. The patient reports that this started about 2 weeks ago and was seen in the hospital in [place] time for chest discomfort was clipped from the ER. He reports feeling better but symptoms recurred the last week presented him to come to the hospital as he was unable to keep any food down. On arrival to the hospital and was noted to be hypotensive with systolic blood pressure in the low 80s. While the patient denies overt alcohol abuse he does admit to tobacco use and occasional alcohol use but denies any binge drinking. He was noted to be pancytopenic and recommended for admission Rectal fissure likely the source of the pain pancytopenia Acute Cystitis evaluated for prostatitis Shock syndrome Acute Gastroenteritis SIRS Tobacco use disorder PLAN no growth yet. Patient had a painful rectal exam with concern for a mass Patient had an EUA with fish assay no abscess Hematology work up going Sepsis protocol, will give additional fluids Jennings work up currently on going from ED including cultures Counselling about tobacco cessation Empiric abx coverage currently on cefepime and Flagyl CT abdomen and pelvis with contrast to evaluate the prostate Valtrex by mouth added for possible underlying herpes Hepatitis profile and HIV non-reactive ID and Hematology input noted,. awaiting peripheral smear Neutropenic precautions CT abd reviewed no significant mass Pain control DVT/GI proph plan discussed with ID, patient and ED physician. History Interval history: Patient seen and examined today, states noting some improvement with bowel movement. No fever, no dysuria Hospitalist Physical - Physical exam Narrative exam: VITAL SIGNS: Reviewed. GENERAL: The patient appeared well nourished and normally developed has a little lethargic. Vital signs as documented. HEAD: No signs of head trauma. EYES: Pupils are equal. Extraocular motions intact. EARS: Hearing grossly intact. MOUTH: Oropharynx is normal. NECK: No adenopathy, no JVD. CHEST: Chest with clear breath sounds bilaterally. No wheezes, rales, or rhonchi. CARDIAC: Regular rate and rhythm. S1 and S2, without murmurs, gallops, or rubs. VASCULAR: No Edema. Peripheral pulses normal and equal in all extremities. ABDOMEN: Soft, without detectable tenderness. No sign of distention. No rebound or guarding, and no masses palpated. Bowel Sounds normal. MUSCULOSKELETAL: Good range of motion of all major joints. Extremities without clubbing, cyanosis or edema. NEUROLOGIC EXAM: Alert and oriented x 3. No focal sensory or strength deficits. Speech normal. Follows commands. PSYCHIATRIC: Mood normal. SKIN: No rash or lesions. - Constitutional Vitals: Temp Pulse Resp BP Pulse Ox 97.4 F L 64 19 117/75 98 10/18/17 13:40 10/18/17 13:40 10/18/17 13:40 10/18/17 13:40 10/18/17 13:40 General appearance: Present: no acute distress Results - Labs CBC & Chem 7: 10/18/17 04:27 10/18/17 04:27 Labs: Laboratory Last Values WBC 1.8 K/mm3 (4.5-11.0) L* 10/18/17 04:27 RBC 2.09 M/mm3 (3.65-5.03) L 10/18/17 04:27 Hgb 8.3 gm/dl (11.8-15.2) L 10/18/17 04:27 Hct 24.3 % (35.5-45.6) L 10/18/17 04:27 MCV 116 fl (84-94) H 10/18/17 04:27 MCH 40 pg (28-32) H 10/18/17 04:27 MCHC 34 % (32-34) 10/18/17 04:27 RDW 13.1 % (13.2-15.2) L 10/18/17 04:27 Plt Count 82 K/mm3 (140-440) L 10/18/17 04:27 Add Manual Diff Complete 10/16/17 04:07 Total Counted 50 10/16/17 04:07 Seg Neuts % (Manual) 30.0 % (40.0-70.0) L 10/16/17 04:07 Band Neutrophils % 4.0 % 10/16/17 04:07 Lymphocytes % (Manual) 54.0 % (13.4-35.0) H 10/16/17 04:07 Reactive Lymphs % (Man) 0 % 10/16/17 04:07 Monocytes % (Manual) 12.0 % (0.0-7.3) H 10/16/17 04:07 Eosinophils % (Manual) 0 % (0.0-4.3) 10/16/17 04:07 Basophils % (Manual) 0 % (0.0-1.8) 10/16/17 04:07 Metamyelocytes % 0 % 10/16/17 04:07 Myelocytes % 0 % 10/16/17 04:07 Promyelocytes % 0 % 10/16/17 04:07 Blast Cells % 0 % 10/16/17 04:07 Nucleated RBC % Not Reportable 10/16/17 04:07 Seg Neutrophils # Man 0.6 K/mm3 (1.8-7.7) L 10/16/17 04:07 Band Neutrophils # 0.1 K/mm3 10/16/17 04:07 Lymphocytes # (Manual) 1.0 K/mm3 (1.2-5.4) L 10/16/17 04:07 Abs React Lymphs (Man) 0.0 K/mm3 10/16/17 04:07 Monocytes # (Manual) 0.2 K/mm3 (0.0-0.8) 10/16/17 04:07 Eosinophils # (Manual) 0.0 K/mm3 (0.0-0.4) 10/16/17 04:07 Basophils # (Manual) 0.0 K/mm3 (0.0-0.1) 10/16/17 04:07 Metamyelocytes # 0.0 K/mm3 10/16/17 04:07 Myelocytes # 0.0 K/mm3 10/16/17 04:07 Promyelocytes # 0.0 K/mm3 10/16/17 04:07 Blast Cells # 0.0 K/mm3 10/16/17 04:07 Pathologist Review 10/16/17 04:07 WBC Morphology Not Reportable 10/16/17 04:07 Hypersegmented Neuts Not Reportable 10/16/17 04:07 Hyposegmented Neuts Not Reportable 10/16/17 04:07 Hypogranular Neuts Not Reportable 10/16/17 04:07 Smudge Cells Not Reportable 10/16/17 04:07 Toxic Granulation Rare 10/16/17 04:07 Toxic Vacuolation Not Reportable 10/16/17 04:07 Dohle Bodies Not Reportable 10/16/17 04:07 Pelger-Huet Anomaly Not Reportable 10/16/17 04:07 Raymundo Rods Not Reportable 10/16/17 04:07 Platelet Estimate Appears decreased 10/16/17 04:07 Clumped Platelets Not Reportable 10/16/17 04:07 Plt Clumps, EDTA Not Reportable 10/16/17 04:07 Large Platelets Not Reportable 10/16/17 04:07 Giant Platelets Not Reportable 10/16/17 04:07 Platelet Satelliting Not Reportable 10/16/17 04:07 Plt Morphology Comment Not Reportable 10/16/17 04:07 RBC Morphology Not Reportable 10/16/17 04:07 Dimorphic RBCs Not Reportable 10/16/17 04:07 Polychromasia Not Reportable 10/16/17 04:07 Hypochromasia Not Reportable 10/16/17 04:07 Poikilocytosis Not Reportable 10/16/17 04:07 Anisocytosis Not Reportable 10/16/17 04:07 Microcytosis Not Reportable 10/16/17 04:07 Macrocytosis Not Reportable 10/16/17 04:07 Spherocytes None seen 10/16/17 07:18 Pappenheimer Bodies Not Reportable 10/16/17 04:07 Sickle Cells Not Reportable 10/16/17 04:07 Target Cells Not Reportable 10/16/17 04:07 Tear Drop Cells Not Reportable 10/16/17 04:07 Ovalocytes Not Reportable 10/16/17 04:07 Helmet Cells Not Reportable 10/16/17 04:07 Whalen-[place] Bodies Not Reportable 10/16/17 04:07 Paterson Rings Not Reportable 10/16/17 04:07 Gladys Cells Not Reportable 10/16/17 04:07 Bite Cells Not Reportable 10/16/17 04:07 Crenated Cell Not Reportable 10/16/17 04:07 Elliptocytes Not Reportable 10/16/17 04:07 Acanthocytes (Spur) Not Reportable 10/16/17 04:07 Rouleaux Not Reportable 10/16/17 04:07 Hemoglobin C Crystals Not Reportable 10/16/17 04:07 Schistocytes Not Reportable 10/16/17 04:07 Malaria parasites Not Reportable 10/16/17 04:07 Eduin Bodies Not Reportable 10/16/17 04:07 Hem Pathologist Commnt Sent to pathology 10/16/17 04:07 PT 13.9 Sec. (12.2-14.9) 10/16/17 07:18 INR 1.02 (0.87-1.13) 10/16/17 07:18 APTT 35.5 Sec. (24.2-36.6) 10/16/17 07:18 Sodium 139 mmol/L (137-145) 10/18/17 04:27 Potassium 4.1 mmol/L (3.6-5.0) 10/18/17 04:27 Chloride 104.0 mmol/L (98-107) 10/18/17 04:27 Carbon Dioxide 24 mmol/L (22-30) 10/18/17 04:27 Anion Gap 15 mmol/L 10/18/17 04:27 BUN 5 mg/dL (9-20) L 10/18/17 04:27 Creatinine 0.8 mg/dL (0.8-1.5) 10/18/17 04:27 Estimated GFR > 60 ml/min 10/18/17 04:27 BUN/Creatinine Ratio 6 % 10/18/17 04:27 Glucose 98 mg/dL (75-100) 10/18/17 04:27 POC Glucose 121 (70-105) H 10/17/17 11:31 Lactic Acid 0.70 mmol/L (0.7-2.0) 10/16/17 11:34 Calcium 8.0 mg/dL (8.4-10.2) L 10/18/17 04:27 Total Bilirubin 0.30 mg/dL (0.1-1.2) 10/16/17 04:07 AST 14 units/L (5-40) 10/16/17 04:07 ALT 11 units/L (7-56) 10/16/17 04:07 Alkaline Phosphatase 43 units/L (35-129) 10/16/17 04:07 Lactate Dehydrogenase 243 units/L (91-180) H 10/16/17 07:18 Troponin T < 0.010 ng/mL (0.00-0.029) 10/16/17 07:18 C-Reactive Protein 2.50 mg/dL (0.00-1.30) H 10/16/17 11:34 Total Protein 6.8 g/dL (6.3-8.2) 10/16/17 04:07 Albumin 3.6 g/dL (3.9-5) L 10/16/17 04:07 Albumin/Globulin Ratio 1.1 % 10/16/17 04:07 Vitamin B12 360.5 pg/mL (211-911) 10/16/17 07:18 Folate 7.41 ng/mL (7.3-26.0) 10/16/17 07:18 TSH 2.180 mlU/mL (0.270-4.200) 10/16/17 07:18 Urine Color Haydee (Yellow) 10/16/17 06:20 Urine Turbidity Slightly-cloudy (Clear) 10/16/17 06:20 Urine pH 6.0 (5.0-7.0) 10/16/17 06:20 Ur Specific [place] 1.026 (1.003-1.030) 10/16/17 06:20 Urine Protein 100 mg/dl mg/dL (Negative) 10/16/17 06:20 Urine Glucose (UA) Neg mg/dL (Negative) 10/16/17 06:20 Urine Ketones Neg mg/dL (Negative) 10/16/17 06:20 Urine Blood Neg (Negative) 10/16/17 06:20 Urine Nitrite Neg (Negative) 10/16/17 06:20 Urine Bilirubin Neg (Negative) 10/16/17 06:20 Urine Urobilinogen 4.0 mg/dL (<2.0) 10/16/17 06:20 Ur Leukocyte Esterase Neg (Negative) 10/16/17 06:20 Urine WBC (Auto) 16.0 /HPF (0.0-6.0) H 10/16/17 06:20 Urine RBC (Auto) 8.0 /HPF (0.0-6.0) 10/16/17 06:20 U Epithel Cells (Auto) 1.0 /HPF (0-13.0) 10/16/17 06:20 Urine Mucus 3+ /HPF 10/16/17 06:20 RPR Nonreactive (Nonreactive) 10/16/17 07:18 EBV Capsid Ag IgG, IgM <36.00 U/mL (<36.00) 10/16/17 11:34 EBV Capsid Ag IgG Titer 71.00 U/mL (<18.00) H 10/16/17 11:34 EBV Nuclear Ag IgG Indx 292.00 U/mL (<18.00) H 10/16/17 11:34 EBV Interpretation Past 10/16/17 11:34 Hepatitis A IgM Ab Non-reactive (NonReactive) 10/16/17 07:18 Hep Bs Antigen Non-reactive (Negative) 10/16/17 07:18 Hep B Core IgM Ab Non-reactive (NonReactive) 10/16/17 07:18 Hepatitis C Antibody Nonreactive (NonReactive) 10/16/17 07:18 HIV-1 RNA PCR copies/ml <20 Copies/mL 10/16/17 11:34 HIV-1 RNA (PCR) log <1.30 Log cps/mL 10/16/17 11:34 HIV 1&2 Antibody Rapid Non react (Non React) 10/16/17 07:18 HIV P24 Antigen Non react (Non React) 10/16/17 07:18 Schistocytes Smear None seen 10/16/17 07:18 Blood Type O POSITIVE 10/16/17 07:18 Antibody Screen Negative 10/16/17 07:18
[2017-10-18] MEDS: VALTREX PO SCH (21:23)
[2017-10-18] MEDS: SENOKOT PO SCH (21:23)
[2017-10-18] MEDS: NITRO-BID 2% TP SCH (21:30)
[2017-10-19] MEDS: MORPHINE IV PRN ×4 (01:22→20:17)
[2017-10-19] MEDS: MAXIPIME/NS 2 GM/100 ML 2 GM/100 ML BAG IV SCH ×3 (05:30→22:37)
[2017-10-19] MEDS: FLAGYL 500 MG/100 ML 500 MG/100 ML BAG IV SCH ×3 (05:59→23:33)
[2017-10-19] MEDS: NITRO-BID 2% TP SCH ×2 (06:04→15:45)
--- NOTE | 2017-10-19 08:14 | Hem/Onc Progress Note ---
Assessment and Plan Leukopenia - Neutropenia - D/w path reg smear to evaluate for primary vs sec cytopenia. reviewed ID notes - I will order BMBx - d/w ore charger - Hospitalist - orders placed in computer - IR was called - no radiologist till sunday anemia Low plt CT abdo done anal fissures - being seen by Sx/GI team pt had fever - ID following - IX ongoing for infective etiology BP was slightly low in ER h/o loss of wt - will follow - etiology unclear at this time - Patient Problems (1) Neutropenia Onset Date: ~10/16/17 Current Visit: Yes Status: Acute Qualifiers: Neutropenia type: unspecified Qualified Code(s): D70.9 - Neutropenia, unspecified Subjective Date of service: 10/19/17 Interval history: S/p Surgical eval for rectal pain - fissures feeling better, eating better reviewed ID notes - bmbx an option Objective - Constitutional Vitals: Last Vital Signs Temp 97.4 F L 10/19/17 04:52 Pulse 51 L 10/19/17 04:52 Resp 24 10/19/17 04:52 BP 118/69 10/19/17 04:52 Pulse Ox 100 10/19/17 04:52 Pain Intensity (0-10): 1/10 General appearance: mild distress Performance status: 0-fully active - EENT Eyes: PERRL ENT: clear oral mucosa Lymph node exam: negative cervical, negative supraclavicular - Neck Neck: supple - Respiratory Respiratory: negative: CTA - Cardiovascular Heart Sounds: Present: S1 & S2 Extremities: No edema - Gastrointestinal General gastrointestinal: Present: soft, non-tender Rectal Exam: deferred - Genitourinary Male genitourinary: Present: deferred - Musculoskeletal Musculoskeletal: strength equal bilaterally - Neurologic Neurologic: moves all extremities
--- NOTE | 2017-10-19 08:24 | Progress Note ---
Assessment and Plan Assessment: 1) SIRS: Afebrile, Neutropenic- prostatitis vs rectal abscess vs leukemia ? EBV IgM- Neg UC- less than 10,000 K BC- ngtd -CXR neg -CT abd neg -HIV neg -viral hep neg -CRP=2.4 3) ? Painful rectal - likely a rectal fissure from constipation (had a large hard stool a week ago) but still we should r/o prostatitis -S/P OR rectal exploration +fissure no abscess seen - r/o herpes infection 4) Weight loss: ? Plan: -Continue cefepime and flagyl D3/7 - may need to be extended if prostatitis -pelvic CT pending -Bone Marrow Biopsy scheduled for 10/22/17 -follow up on HSV 1&2 serology -continue valtrex po for now -treat constipation Dr Noyola is covering over the phone this , will round on Sunday [facility] M: [phone] O:[phone] Subjective Date of service: 10/19/17 Principal diagnosis: cytopenia Interval history: Patient sitting up in bed watching television. Patient states that he is feeling better today. He also denies anal pain. Patient stated that he has not had a bowel movement since admission on 10/16. Current Antimmicrobials Cefepime 10/17 Flagyl - 10/17 Previous Antimicrobials Cefriaxone Objective - Exam Narrative Exam: General appearance: Alert in NAD, conversant Eyes: anicteric sclerae, moist conjunctivae; no lid-lag; PERRLA HENT: Atraumatic; oropharynx clear with moist mucous membranes and no mucosal ulcerations/no oral thrush; normal hard and soft palate. Normal external ears. Neck: Trachea midline; supple, no thyromegaly or lymphadenopathy Lungs: CTA, with normal respiratory effort and no intercostal retractions CV: RRR, no murmurs Abdomen: Soft, non-tender; no masses or hepatosplenomegaly Extremities: No peripheral edema or extremity lymphadenopathy Skin: Superficial nodules at the johnson area. Vickey Cervical lymph node palpable. Psych: Appropriate affect, alert and oriented to person, place and time. Neuro: alert and oriented x 3. Moving all extermities - Constitutional Vitals: Vital Signs Temp Pulse Resp BP Pulse Ox 97.4 F L 51 L 24 118/69 100 10/19/17 04:52 10/19/17 04:52 10/19/17 04:52 10/19/17 04:52 10/19/17 04:52 Temperature -Last 24 Hours Temperature 97.4 F Temperature 97.7 F Temperature 98.9 F Temperature 97.4 F Temperature 97.4 F Temperature 97.5 F Temperature 98.4 F Temperature 98.2 F Temperature 98.2 F - Labs CBC & Chem 7: 10/19/17 08:27 10/19/17 08:27
[2017-10-19 08:41] LABS: Hematocrit 26.9 % (35.5-45.6); Hemoglobin 9.1 gm/dl (11.8-15.2); Mean Corpuscular HGB Conc 34 % (32-34); Mean Corpuscular Hemoglobin 39 pg (28-32); Red Blood Count 2.32 M/mm3 (3.65-5.03)
[2017-10-19 08:47] LABS: Mean Corpuscular Volume 116 fl (84-94)
[2017-10-19 08:48] LABS: Platelet Count 94 K/mm3 (140-440)
[2017-10-19 08:53] LABS: BUN/Creatinine Ratio 13; Blood Urea Nitrogen 10 mg/dL (9-20); Calcium 8.4 mg/dL (8.4-10.2); Hemolysis Index 80
[2017-10-19] MEDS: VALTREX PO SCH ×3 (11:12→22:37)
[2017-10-19] MEDS: SENOKOT PO SCH ×2 (11:13→22:38)
--- NOTE | 2017-10-19 11:14 | Cat Scan Report ---
CT scan of abdomen and pelvis with contrast: History: prostatitis Findings: Scarring lower lobes bilaterally. Small sliding hiatal hernia. Suspicion of gastritis. Normal liver spleen pancreas and gallbladder. Normal adrenals. Subcentimeter hypodensity left kidney probably a cyst. 7 mm hypodensity right kidney probably a cyst. 2 mm nonobstructing calculus right kidney. Normal bladder. Prostate measures 3.08 x 4.35 cm. No free intraperitoneal fluid or air. No evidence of adenopathy. Normal aorta. Gaseous colon with stool in colon. No evidence of appendicitis or diverticulitis. No bowel obstruction. Impression: Suspected gastritis and duodenitis. Cyst right and left kidney. Nonobstructing calculus right kidney. Additional findings as detailed above
--- NOTE | 2017-10-19 11:15 | Gastroenterology Progress Note ---
Assessment and Plan 1.rectal pain/tenderness -improved -s/p EUA yesterday that revealed a large posterior anal fissure -continue nitoglycerin cream -no further recommendations per GI -further management per surgery -will sign off, please call if needed 2.macrocytic anemia/pancytopenia -etiology unclear -ID and Hem/Onc following with bone marrow bx pending Subjective Date of service: 10/19/17 Principal diagnosis: rectal pain Interval history: Patient w/o acute distress. Reports feeling better with rectal pain significantly improved. Denies abd pain, N/V, or signs of bleeding. Objective - Constitutional Vitals: Temp Pulse Resp BP Pulse Ox 97.4 F L 51 L 24 118/69 100 10/19/17 04:52 10/19/17 04:52 10/19/17 04:52 10/19/17 04:52 10/19/17 04:52 General appearance: no acute distress - Respiratory Respiratory: bilateral: CTA - Cardiovascular Rhythm: other (bradycardia) - Gastrointestinal General gastrointestinal: Present: soft, non-tender, non-distended, normal bowel sounds - Neurologic Neurological: alert and oriented x3 - Labs CBC & Chem 7: 10/19/17 08:27 10/19/17 08:27 Labs: Laboratory Results - last 24 hr 10/19/17 10/19/17 08:27 08:27 WBC 1.5 L* RBC 2.32 L Hgb 9.1 L Hct 26.9 L MCV 116 H MCH 39 H MCHC 34 RDW 13.0 L Plt Count 94 L Sodium 136 L Potassium 4.3 Chloride 101.7 Carbon Dioxide 24 Anion Gap 15 BUN 10 Creatinine 0.8 Estimated GFR > 60 BUN/Creatinine Ratio 13 Glucose 111 H Calcium 8.4
[2017-10-19] MEDS: TORADOL IV PRN (12:06)
[2017-10-19] MEDS: NACL 0.9% 1000 ML 1,000 ML IV SCH ×2 (12:07→20:17)
--- NOTE | 2017-10-19 12:34 | Progress Note ---
Assessment and Plan Assessment and plan: 42 year old male with weakness, near syncope worse with movement, chills, persistent nausea, with no associated diarrhea or shortness of breath. The patient reports that this started about 2 weeks ago and was seen in the hospital in [place] time for chest discomfort was clipped from the ER. He reports feeling better but symptoms recurred the last week presented him to come to the hospital as he was unable to keep any food down. On arrival to the hospital and was noted to be hypotensive with systolic blood pressure in the low 80s. While the patient denies overt alcohol abuse he does admit to tobacco use and occasional alcohol use but denies any binge drinking. He was noted to be pancytopenic and recommended for admission Rectal fissure likely the source of the pain pancytopenia Acute Cystitis evaluated for prostatitis Shock syndrome Acute Gastroenteritis SIRS present on admission Noted weight loss Tobacco use disorder PLAN no growth yet. Patient had a painful rectal exam with concern for a mass Patient had an EUA as noted with no abscess Case discussed in detail with train conductor while patient will be continued also from Flagyl the day of 7 patient will proceed for bone marrow biopsy scheduled for 10/22/2017. CT of the pelvis pending to evaluate for prostatitis. This is diagnosed showing a distended metabolic treatment. Continues to [facility] Hematology work up going [place] work up currently on going from ED including cultures Counselling about tobacco cessation Empiric abx coverage currently on cefepime and Flagyl CT abdomen and pelvis with contrast to evaluate the prostate Valtrex by mouth added for possible underlying herpes Hepatitis profile and HIV non-reactive ID and Hematology input noted,. awaiting peripheral smear Neutropenic precautions CT abd reviewed no significant mass Pain control DVT/GI proph plan discussed with ID, patient, wants to remain in house till Biopsy History Interval history: Patient seen and examined today, no new complaints. Hospitalist Physical - Physical exam Narrative exam: VITAL SIGNS: Reviewed. GENERAL: The patient appeared well nourished and normally. Vital signs as documented. HEAD: No signs of head trauma. EYES: Pupils are equal. Extraocular motions intact. EARS: Hearing grossly intact. MOUTH: Oropharynx is normal. NECK: No adenopathy, no JVD. CHEST: Chest with clear breath sounds bilaterally. No wheezes, rales, or rhonchi. CARDIAC: Regular rate and rhythm. S1 and S2, without murmurs, gallops, or rubs. VASCULAR: No Edema. Peripheral pulses normal and equal in all extremities. ABDOMEN: Soft, without detectable tenderness. No sign of distention. No rebound or guarding, and no masses palpated. Bowel Sounds normal. MUSCULOSKELETAL: Good range of motion of all major joints. Extremities without clubbing, cyanosis or edema. NEUROLOGIC EXAM: Alert and oriented x 3. No focal sensory or strength deficits. Speech normal. Follows commands. PSYCHIATRIC: Mood normal. SKIN: No rash or lesions. - Constitutional Vitals: Temp Pulse Resp BP Pulse Ox 97.4 F L 51 L 24 118/69 100 10/19/17 04:52 10/19/17 12:15 10/19/17 12:15 10/19/17 04:52 10/19/17 12:15 General appearance: Present: no acute distress Results - Labs CBC & Chem 7: 10/19/17 08:27 10/19/17 08:27 Labs: Laboratory Last Values WBC 1.5 K/mm3 (4.5-11.0) L* 10/19/17 08:27 RBC 2.32 M/mm3 (3.65-5.03) L 10/19/17 08:27 Hgb 9.1 gm/dl (11.8-15.2) L 10/19/17 08:27 Hct 26.9 % (35.5-45.6) L 10/19/17 08:27 MCV 116 fl (84-94) H 10/19/17 08:27 MCH 39 pg (28-32) H 10/19/17 08:27 MCHC 34 % (32-34) 10/19/17 08:27 RDW 13.0 % (13.2-15.2) L 10/19/17 08:27 Plt Count 94 K/mm3 (140-440) L 10/19/17 08:27 Add Manual Diff Complete 10/16/17 04:07 Total Counted 50 10/16/17 04:07 Seg Neuts % (Manual) 30.0 % (40.0-70.0) L 10/16/17 04:07 Band Neutrophils % 4.0 % 10/16/17 04:07 Lymphocytes % (Manual) 54.0 % (13.4-35.0) H 10/16/17 04:07 Reactive Lymphs % (Man) 0 % 10/16/17 04:07 Monocytes % (Manual) 12.0 % (0.0-7.3) H 10/16/17 04:07 Eosinophils % (Manual) 0 % (0.0-4.3) 10/16/17 04:07 Basophils % (Manual) 0 % (0.0-1.8) 10/16/17 04:07 Metamyelocytes % 0 % 10/16/17 04:07 Myelocytes % 0 % 10/16/17 04:07 Promyelocytes % 0 % 10/16/17 04:07 Blast Cells % 0 % 10/16/17 04:07 Nucleated RBC % Not Reportable 10/16/17 04:07 Seg Neutrophils # Man 0.6 K/mm3 (1.8-7.7) L 10/16/17 04:07 Band Neutrophils # 0.1 K/mm3 10/16/17 04:07 Lymphocytes # (Manual) 1.0 K/mm3 (1.2-5.4) L 10/16/17 04:07 Abs React Lymphs (Man) 0.0 K/mm3 10/16/17 04:07 Monocytes # (Manual) 0.2 K/mm3 (0.0-0.8) 10/16/17 04:07 Eosinophils # (Manual) 0.0 K/mm3 (0.0-0.4) 10/16/17 04:07 Basophils # (Manual) 0.0 K/mm3 (0.0-0.1) 10/16/17 04:07 Metamyelocytes # 0.0 K/mm3 10/16/17 04:07 Myelocytes # 0.0 K/mm3 10/16/17 04:07 Promyelocytes # 0.0 K/mm3 10/16/17 04:07 Blast Cells # 0.0 K/mm3 10/16/17 04:07 Pathologist Review 10/16/17 04:07 WBC Morphology Not Reportable 10/16/17 04:07 Hypersegmented Neuts Not Reportable 10/16/17 04:07 Hyposegmented Neuts Not Reportable 10/16/17 04:07 Hypogranular Neuts Not Reportable 10/16/17 04:07 Smudge Cells Not Reportable 10/16/17 04:07 Toxic Granulation Rare 10/16/17 04:07 Toxic Vacuolation Not Reportable 10/16/17 04:07 Dohle Bodies Not Reportable 10/16/17 04:07 Pelger-Huet Anomaly Not Reportable 10/16/17 04:07 Raymundo Rods Not Reportable 10/16/17 04:07 Platelet Estimate Appears decreased 10/16/17 04:07 Clumped Platelets Not Reportable 10/16/17 04:07 Plt Clumps, EDTA Not Reportable 10/16/17 04:07 Large Platelets Not Reportable 10/16/17 04:07 Giant Platelets Not Reportable 10/16/17 04:07 Platelet Satelliting Not Reportable 10/16/17 04:07 Plt Morphology Comment Not Reportable 10/16/17 04:07 RBC Morphology Not Reportable 10/16/17 04:07 Dimorphic RBCs Not Reportable 10/16/17 04:07 Polychromasia Not Reportable 10/16/17 04:07 Hypochromasia Not Reportable 10/16/17 04:07 Poikilocytosis Not Reportable 10/16/17 04:07 Anisocytosis Not Reportable 10/16/17 04:07 Microcytosis Not Reportable 10/16/17 04:07 Macrocytosis Not Reportable 10/16/17 04:07 Spherocytes None seen 10/16/17 07:18 Pappenheimer Bodies Not Reportable 10/16/17 04:07 Sickle Cells Not Reportable 10/16/17 04:07 Target Cells Not Reportable 10/16/17 04:07 Tear Drop Cells Not Reportable 10/16/17 04:07 Ovalocytes Not Reportable 10/16/17 04:07 Helmet Cells Not Reportable 10/16/17 04:07 [place] Bodies Not Reportable 10/16/17 04:07 [place] Rings Not Reportable 10/16/17 04:07 Gladys Cells Not Reportable 10/16/17 04:07 Bite Cells Not Reportable 10/16/17 04:07 Crenated Cell Not Reportable 10/16/17 04:07 Elliptocytes Not Reportable 10/16/17 04:07 Acanthocytes (Spur) Not Reportable 10/16/17 04:07 Rouleaux Not Reportable 10/16/17 04:07 Hemoglobin C Crystals Not Reportable 10/16/17 04:07 Schistocytes Not Reportable 10/16/17 04:07 Malaria parasites Not Reportable 10/16/17 04:07 Eduin Bodies Not Reportable 10/16/17 04:07 Hem Pathologist Commnt Sent to pathology 10/16/17 04:07 PT 13.9 Sec. (12.2-14.9) 10/16/17 07:18 INR 1.02 (0.87-1.13) 10/16/17 07:18 APTT 35.5 Sec. (24.2-36.6) 10/16/17 07:18 Sodium 136 mmol/L (137-145) L 10/19/17 08:27 Potassium 4.3 mmol/L (3.6-5.0) 10/19/17 08:27 Chloride 101.7 mmol/L (98-107) 10/19/17 08:27 Carbon Dioxide 24 mmol/L (22-30) 10/19/17 08:27 Anion Gap 15 mmol/L 10/19/17 08:27 BUN 10 mg/dL (9-20) 10/19/17 08:27 Creatinine 0.8 mg/dL (0.8-1.5) 10/19/17 08:27 Estimated GFR > 60 ml/min 10/19/17 08:27 BUN/Creatinine Ratio 13 % 10/19/17 08:27 Glucose 111 mg/dL (75-100) H 10/19/17 08:27 POC Glucose 121 (70-105) H 10/17/17 11:31 Lactic Acid 0.70 mmol/L (0.7-2.0) 10/16/17 11:34 Calcium 8.4 mg/dL (8.4-10.2) 10/19/17 08:27 Total Bilirubin 0.30 mg/dL (0.1-1.2) 10/16/17 04:07 AST 14 units/L (5-40) 10/16/17 04:07 ALT 11 units/L (7-56) 10/16/17 04:07 Alkaline Phosphatase 43 units/L (35-129) 10/16/17 04:07 Lactate Dehydrogenase 243 units/L (91-180) H 10/16/17 07:18 Troponin T < 0.010 ng/mL (0.00-0.029) 10/16/17 07:18 C-Reactive Protein 2.50 mg/dL (0.00-1.30) H 10/16/17 11:34 Total Protein 6.8 g/dL (6.3-8.2) 10/16/17 04:07 Albumin 3.6 g/dL (3.9-5) L 10/16/17 04:07 Albumin/Globulin Ratio 1.1 % 10/16/17 04:07 Vitamin B12 360.5 pg/mL (211-911) 10/16/17 07:18 Folate 7.41 ng/mL (7.3-26.0) 10/16/17 07:18 TSH 2.180 mlU/mL (0.270-4.200) 10/16/17 07:18 Urine Color [place] (Yellow) 10/16/17 06:20 Urine Turbidity Slightly-cloudy (Clear) 10/16/17 06:20 Urine pH 6.0 (5.0-7.0) 10/16/17 06:20 Ur Specific [place] 1.026 (1.003-1.030) 10/16/17 06:20 Urine Protein 100 mg/dl mg/dL (Negative) 10/16/17 06:20 Urine Glucose (UA) Neg mg/dL (Negative) 10/16/17 06:20 Urine Ketones Neg mg/dL (Negative) 10/16/17 06:20 Urine Blood Neg (Negative) 10/16/17 06:20 Urine Nitrite Neg (Negative) 10/16/17 06:20 Urine Bilirubin Neg (Negative) 10/16/17 06:20 Urine Urobilinogen 4.0 mg/dL (<2.0) 10/16/17 06:20 Ur Leukocyte Esterase Neg (Negative) 10/16/17 06:20 Urine WBC (Auto) 16.0 /HPF (0.0-6.0) H 10/16/17 06:20 Urine RBC (Auto) 8.0 /HPF (0.0-6.0) 10/16/17 06:20 U Epithel Cells (Auto) 1.0 /HPF (0-13.0) 10/16/17 06:20 Urine Mucus 3+ /HPF 10/16/17 06:20 RPR Nonreactive (Nonreactive) 10/16/17 07:18 EBV Capsid Ag IgG, IgM <36.00 U/mL (<36.00) 10/16/17 11:34 EBV Capsid Ag IgG Titer 71.00 U/mL (<18.00) H 10/16/17 11:34 EBV Nuclear Ag IgG Indx 292.00 U/mL (<18.00) H 10/16/17 11:34 EBV Interpretation Past 10/16/17 11:34 Hepatitis A IgM Ab Non-reactive (NonReactive) 10/16/17 07:18 Hep Bs Antigen Non-reactive (Negative) 10/16/17 07:18 Hep B Core IgM Ab Non-reactive (NonReactive) 10/16/17 07:18 Hepatitis C Antibody Nonreactive (NonReactive) 10/16/17 07:18 HIV-1 RNA PCR copies/ml <20 Copies/mL 10/16/17 11:34 HIV-1 RNA (PCR) log <1.30 Log cps/mL 10/16/17 11:34 HIV 1&2 Antibody Rapid Non react (Non React) 10/16/17 07:18 HIV P24 Antigen Non react (Non React) 10/16/17 07:18 Schistocytes Smear None seen 10/16/17 07:18 Blood Type O POSITIVE 10/16/17 07:18 Antibody Screen Negative 10/16/17 07:18
--- NOTE | 2017-10-19 15:26 | Progress Note ---
Assessment and Plan - Patient Problems (1) Anal fissure Current Visit: Yes Status: Acute Plan to address problem: Pt stable. s/p EUA and saddle block - 9/ POD#1. Patient reports that he is feeling much better. Pain is less. He is not received the nitroglycerin ointment yet. He is taking the stool softener. I spoke with the nurse about the NTG, they will make sure they give it. In reviewing his history again, now he reports that he has had episodes where he would notice blood on the toilet paper and have severe pain at the time of wiping. The pain would come and go. The history he now gives is fairly classic for an anal fissure. Sounds like this is been going on for quite a while. Rec: 1) NTG to perianal area BID 2) stool softeners 3) Sitz baths 3-4x/day 4) increased fiber in the diet 5) good hydration Please call with questions. Subjective Date of service: 10/19/17 Patient Reports: Positive: feels better, pain is less Objective Vital Signs - 12hr 10/19/17 10/19/17 10/19/17 04:52 11:59 12:15 Temperature 97.4 F L 97.3 F L Pulse Rate 51 L Pulse Rate [ 51 L Apical] Respiratory 24 19 24 Rate Blood Pressure 118/69 116/65 O2 Sat by Pulse 100 100 Oximetry - General physical appearance no distress, no pain - Eyes normal occular movement - Respiratory normal expansion, normal respiratory effort - Psychiatric oriented to time, oriented to person, oriented to place, speech is normal, memory intact - Labs 10/19/17 08:27 10/19/17 08:27 Diabetes panel 10/19/17 Range/Units 08:27 Sodium 136 L (137-145) mmol/L Potassium 4.3 (3.6-5.0) mmol/L Chloride 101.7 (98-107) mmol/L Carbon Dioxide 24 (22-30) mmol/L BUN 10 (9-20) mg/dL Creatinine 0.8 (0.8-1.5) mg/dL Glucose 111 H (75-100) mg/dL Calcium 8.4 (8.4-10.2) mg/dL Calcium panel 10/19/17 Range/Units 08:27 Calcium 8.4 (8.4-10.2) mg/dL Pituitary panel 10/19/17 Range/Units 08:27 Sodium 136 L (137-145) mmol/L Potassium 4.3 (3.6-5.0) mmol/L Chloride 101.7 (98-107) mmol/L Carbon Dioxide 24 (22-30) mmol/L BUN 10 (9-20) mg/dL Creatinine 0.8 (0.8-1.5) mg/dL Glucose 111 H (75-100) mg/dL Calcium 8.4 (8.4-10.2) mg/dL Adrenal panel 10/19/17 Range/Units 08:27 Sodium 136 L (137-145) mmol/L Potassium 4.3 (3.6-5.0) mmol/L Chloride 101.7 (98-107) mmol/L Carbon Dioxide 24 (22-30) mmol/L BUN 10 (9-20) mg/dL Creatinine 0.8 (0.8-1.5) mg/dL Glucose 111 H (75-100) mg/dL Calcium 8.4 (8.4-10.2) mg/dL
[2017-10-20] MEDS: MORPHINE IV PRN ×5 (00:49→22:01)
[2017-10-20 05:46] LABS: Hemoglobin 7.4 gm/dl (11.8-15.2); Mean Corpuscular HGB Conc 34 % (32-34); Mean Corpuscular Hemoglobin 39 pg (28-32); Red Blood Count 1.89 M/mm3 (3.65-5.03); Red Cell Distribution Width 13.3 % (13.2-15.2)
[2017-10-20 06:19] LABS: Blood Urea Nitrogen 9 mg/dL (9-20); Calcium 7.7 mg/dL (8.4-10.2); Hemolysis Index 15
[2017-10-20 06:34] LABS: BUN/Creatinine Ratio 15
[2017-10-20 06:38] LABS: Mean Corpuscular Volume 116 fl (84-94); Platelet Count 88 K/mm3 (140-440)
[2017-10-20] MEDS: MAXIPIME/NS 2 GM/100 ML 2 GM/100 ML BAG IV SCH ×3 (06:44→22:00)
[2017-10-20] MEDS: NACL 0.9% 1000 ML 1,000 ML IV SCH ×2 (06:44→14:21)
[2017-10-20] MEDS: NITRO-BID 2% TP SCH ×2 (06:46→14:12)
[2017-10-20] MEDS: FLAGYL 500 MG/100 ML 500 MG/100 ML BAG IV SCH ×3 (07:29→21:59)
[2017-10-20] MEDS: VALTREX PO SCH ×3 (09:26→20:14)
[2017-10-20] MEDS: SENOKOT PO SCH ×2 (09:26→20:00)
--- NOTE | 2017-10-20 15:47 | Progress Note ---
Assessment and Plan Assessment and Plan: 42 year old male with weakness, near syncope worse with movement, chills, persistent nausea, with no associated diarrhea or shortness of breath. The patient reports that this started about 2 weeks ago and was seen in the hospital in [place] time for chest discomfort was clipped from the ER. He reports feeling better but symptoms recurred the last week presented him to come to the hospital as he was unable to keep any food down. On arrival to the hospital and was noted to be hypotensive with systolic blood pressure in the low 80s. While the patient denies overt alcohol abuse he does admit to tobacco use and occasional alcohol use but denies any binge drinking. He was noted to be pancytopenic and recommended for admission Rectal fissure likely the source of the pain pancytopenia--Bone marrow bx on 10/22/17 Acute Cystitis evaluated for prostatitis Shock syndrome Acute Gastroenteritis SIRS present on admission Noted weight loss Tobacco use disorder PLAN No growth yet. Patient had a painful rectal exam with concern for a mass Patient had an EUA as noted with no abscess Patient will be continued on Flagyl the day and will proceed for bone marrow biopsy scheduled for 10/22/2017. CT of the pelvis pending to evaluate for prostatitis. This is diagnosed showing a distended metabolic treatment. Continues to [facility] Hematology work up going [place] work up currently on going from ED including cultures Counselling about tobacco cessation Empiric abx coverage currently on cefepime and Flagyl CT abdomen and pelvis with contrast to evaluate the prostate Valtrex by mouth added for possible underlying herpes Hepatitis profile and HIV non-reactive ID and Hematology input noted,. awaiting peripheral smear Neutropenic precautions CT abd reviewed no significant mass Pain control DVT/GI proph plan discussed with ID, patient, wants to remain in house till Biopsy Subjective Date of service: 10/20/17 Principal diagnosis: cytopenia Objective - Constitutional Vitals: Vital Signs - 12hr 10/20/17 10/20/17 10/20/17 06:20 12:37 13:30 Temperature 99.0 F 97.8 F 97.7 F Pulse Rate 63 60 77 Respiratory 16 22 16 Rate Blood Pressure 107/62 125/71 114/59 O2 Sat by Pulse 97 99 98 Oximetry General appearance: Present: no acute distress, well-nourished - EENT Eyes: PERRL, EOM intact ENT: hearing intact, clear oral mucosa Ears: bilateral: normal - Neck Neck: supple, normal ROM - Respiratory Respiratory effort: normal Respiratory: bilateral: CTA - Breasts Breasts: normal - Cardiovascular Rhythm: regular Heart Sounds: Present: S1 & S2. Absent: gallop, rub Extremities: pulses intact, No edema, normal color, Full ROM - Gastrointestinal General gastrointestinal: Present: soft, non-tender, non-distended, normal bowel sounds - Genitourinary Male genitourinary: normal - Integumentary Integumentary: clear, warm, dry - Musculoskeletal Musculoskeletal: 1, strength equal bilaterally - Neurologic Neurologic: moves all extremities - Psychiatric Psychiatric: memory intact, appropriate mood/affect, intact judgment & insight - Labs CBC & Chem 7: 10/20/17 05:12 10/20/17 05:12 Labs: Abnormal lab results 10/20/17 10/20/17 Range/Units 05:12 05:12 WBC 1.9 L* (4.5-11.0) K/mm3 RBC 1.89 L (3.65-5.03) M/mm3 Hgb 7.4 L (11.8-15.2) gm/dl Hct 22.0 L (35.5-45.6) % MCV 116 H (84-94) fl MCH 39 H (28-32) pg Plt Count 88 L (140-440) K/mm3 Chloride 109.5 H (98-107) mmol/L Creatinine 0.6 L (0.8-1.5) mg/dL Calcium 7.7 L (8.4-10.2) mg/dL
--- NOTE | 2017-10-20 20:20 | Progress Note ---
Assessment and Plan - Patient Problems (1) Anal fissure Current Visit: Yes Status: Acute Plan to address problem: Pt stable. s/p EUA and saddle block - 9/ POD#2. Patient has no complaints or concerns in regards to the anal fissure. He has been tolerating the nitroglycerin without any problems. Rec: 1) NTG to perianal area BID. Will need to continue for a few weeks 2) stool softeners 3) Sitz baths 3-4x/day 4) increased fiber in the diet 5) good hydration 6) f/u in 2 weeks about d/c. Please call with questions. Time=10min Subjective Date of service: 10/20/17 Patient Reports: Positive: other (very worried about cause of abnormal lab values. Has no issues with rectal pain or problems from NTG. ) Objective Vital Signs - 12hr 10/20/17 10/20/17 10/20/17 12:37 13:30 17:40 Temperature 97.8 F 97.7 F 98.2 F Pulse Rate 60 77 68 Respiratory 22 16 18 Rate Blood Pressure 125/71 114/59 126/77 O2 Sat by Pulse 99 98 99 Oximetry - General physical appearance well developed, well nourished, no distress, no pain - Eyes normal occular movement - Respiratory normal expansion, normal respiratory effort - Psychiatric oriented to time, oriented to person, oriented to place, speech is normal, memory intact - Labs 10/20/17 05:12 10/20/17 05:12 Diabetes panel 10/20/17 Range/Units 05:12 Sodium 142 (137-145) mmol/L Potassium 4.0 (3.6-5.0) mmol/L Chloride 109.5 H (98-107) mmol/L Carbon Dioxide 25 (22-30) mmol/L BUN 9 (9-20) mg/dL Creatinine 0.6 L (0.8-1.5) mg/dL Glucose 99 (75-100) mg/dL Calcium 7.7 L (8.4-10.2) mg/dL Calcium panel 10/20/17 Range/Units 05:12 Calcium 7.7 L (8.4-10.2) mg/dL Pituitary panel 10/20/17 Range/Units 05:12 Sodium 142 (137-145) mmol/L Potassium 4.0 (3.6-5.0) mmol/L Chloride 109.5 H (98-107) mmol/L Carbon Dioxide 25 (22-30) mmol/L BUN 9 (9-20) mg/dL Creatinine 0.6 L (0.8-1.5) mg/dL Glucose 99 (75-100) mg/dL Calcium 7.7 L (8.4-10.2) mg/dL Adrenal panel 10/20/17 Range/Units 05:12 Sodium 142 (137-145) mmol/L Potassium 4.0 (3.6-5.0) mmol/L Chloride 109.5 H (98-107) mmol/L Carbon Dioxide 25 (22-30) mmol/L BUN 9 (9-20) mg/dL Creatinine 0.6 L (0.8-1.5) mg/dL Glucose 99 (75-100) mg/dL Calcium 7.7 L (8.4-10.2) mg/dL
[2017-10-20] MEDS: RESTORIL PO PRN (22:00)
[2017-10-21] MEDS: MAXIPIME/NS 2 GM/100 ML 2 GM/100 ML BAG IV SCH ×3 (06:00→21:09)
[2017-10-21] MEDS: FLAGYL 500 MG/100 ML 500 MG/100 ML BAG IV SCH ×3 (06:18→21:41)
[2017-10-21] MEDS: NACL 0.9% 1000 ML 1,000 ML IV SCH (06:24)
[2017-10-21] MEDS: NITRO-BID 2% TP SCH ×2 (06:29→14:42)
[2017-10-21] MEDS: SENOKOT PO SCH ×2 (08:53→21:08)
[2017-10-21] MEDS: VALTREX PO SCH ×3 (08:58→21:07)
--- NOTE | 2017-10-21 11:18 | Progress Note ---
Assessment and Plan Assessment and Plan: 42 year old male with weakness, near syncope worse with movement, chills, persistent nausea, with no associated diarrhea or shortness of breath. The patient reports that this started about 2 weeks ago and was seen in the hospital in [place] time for chest discomfort was clipped from the ER. He reports feeling better but symptoms recurred the last week presented him to come to the hospital as he was unable to keep any food down. On arrival to the hospital and was noted to be hypotensive with systolic blood pressure in the low 80s. While the patient denies overt alcohol abuse he does admit to tobacco use and occasional alcohol use but denies any binge drinking. He was noted to be pancytopenic and recommended for admission Anal fissure ---S/p surgery on 10/18 pancytopenia--Bone marrow bx on 10/22/17 Acute Cystitis evaluated for prostatitis Shock syndrome Acute Gastroenteritis SIRS present on admission Noted weight loss Tobacco use disorder PLAN No growth yet. Patient had a painful rectal exam with concern for a mass Patient had an EUA as noted with no abscess Patient will be continued on Flagyl the day and will proceed for bone marrow biopsy scheduled for 10/22/2017. CT of the pelvis pending to evaluate for prostatitis. This is diagnosed showing a distended metabolic treatment. Continues to [facility] Hematology work up going [place] work up currently on going from ED including cultures Counselling about tobacco cessation Empiric abx coverage currently on cefepime and Flagyl CT abdomen and pelvis with contrast to evaluate the prostate Valtrex by mouth added for possible underlying herpes Hepatitis profile and HIV non-reactive ID and Hematology input noted,. awaiting peripheral smear Neutropenic precautions CT abd reviewed no significant mass Pain control DVT/GI proph plan discussed with ID, patient, wants to remain in house till Biopsy Subjective Date of service: 10/21/17 Principal diagnosis: Pancytopenia Interval history: No complaints Objective - Constitutional Vitals: Vital Signs - 12hr 10/21/17 10/21/17 10/21/17 00:03 05:38 05:40 Temperature 98.4 F 98.4 F Pulse Rate 59 L 74 Respiratory 18 18 Rate Blood Pressure 110/64 Blood Pressure 115/70 [Left] O2 Sat by Pulse 98 99 Oximetry 10/21/17 06:29 Temperature Pulse Rate 68 Respiratory Rate Blood Pressure 110/68 Blood Pressure [Left] O2 Sat by Pulse Oximetry General appearance: Present: no acute distress, well-nourished - EENT Eyes: PERRL, EOM intact ENT: hearing intact, clear oral mucosa Ears: bilateral: normal - Neck Neck: supple, normal ROM - Respiratory Respiratory effort: normal Respiratory: bilateral: CTA - Breasts Breasts: normal - Cardiovascular Heart rate: 78 Rhythm: regular Heart Sounds: Present: S1 & S2. Absent: gallop, rub Extremities: no ischemia, pulses intact, No edema, normal color, Full ROM - Gastrointestinal General gastrointestinal: Present: soft, non-tender, non-distended, normal bowel sounds - Genitourinary Male genitourinary: normal - Integumentary Integumentary: clear, warm, dry - Musculoskeletal Musculoskeletal: 1, strength equal bilaterally - Neurologic Neurologic: moves all extremities - Psychiatric Psychiatric: memory intact, appropriate mood/affect, intact judgment & insight - Labs CBC & Chem 7: 10/20/17 05:12 10/20/17 05:12
--- NOTE | 2017-10-21 12:01 | Hem/Onc Progress Note ---
Assessment and Plan # Leukopenia - Neutropenia - D/w path reg smear to evaluate for primary vs sec cytopenia. I ordered BMBx - d/w charge entry specialist - Hospitalist - orders placed in computer - IR was called - no radiologist till sunday # anemia - MACROcytosis # Low plt CT abdo done # anal fissures - being followed by Sx/GI team At one time - pt had fever - ID following - IX ongoing for infective etiology BP was slightly low in ER # h/o loss of wt - will follow - etiology unclear at this time BMBx sunday - Patient Problems (1) Neutropenia Onset Date: ~10/16/17 Current Visit: Yes Status: Acute Subjective Date of service: 10/21/17 Principal diagnosis: leukopenia Interval history: feeling better no vomiting no abdo pain Objective - Constitutional Vitals: Last Vital Signs Temp 98.4 F 10/21/17 05:38 Pulse 68 10/21/17 06:29 Resp 18 10/21/17 05:38 BP 110/68 10/21/17 06:29 Pulse Ox 99 10/21/17 05:38 Pain Intensity (0-10): denies any pain General appearance: no acute distress Performance status: 0-fully active - EENT Eyes: PERRL ENT: clear oral mucosa Lymph node exam: negative cervical - Neck Neck: supple - Respiratory Respiratory: negative: CTA - Cardiovascular Heart Sounds: Present: S1 & S2 Extremities: No edema - Gastrointestinal General gastrointestinal: Present: soft, non-tender Rectal Exam: deferred - Genitourinary Male genitourinary: Present: deferred - Musculoskeletal Musculoskeletal: strength equal bilaterally - Neurologic Neurologic: moves all extremities
[2017-10-21] MEDS: MORPHINE IV PRN ×2 (14:49→21:13)
[2017-10-22] MEDS: NACL 0.9% 1000 ML 1,000 ML IV SCH ×3 (03:45→20:28)
[2017-10-22] MEDS: MAXIPIME/NS 2 GM/100 ML 2 GM/100 ML BAG IV SCH ×3 (05:23→22:09)
[2017-10-22] MEDS: NITRO-BID 2% TP SCH ×2 (05:24→13:34)
[2017-10-22] MEDS: FLAGYL 500 MG/100 ML 500 MG/100 ML BAG IV SCH (05:52)
[2017-10-22 06:39] LABS: Hematocrit 22.7 % (35.5-45.6); Hemoglobin 7.7 gm/dl (11.8-15.2); Mean Corpuscular HGB Conc 34 % (32-34); Mean Corpuscular Hemoglobin 39 pg (28-32); Platelet Count 106 K/mm3 (140-440); Red Blood Count 1.97 M/mm3 (3.65-5.03)
[2017-10-22 06:55] LABS: Mean Corpuscular Volume 116 fl (84-94)
[2017-10-22 07:05] LABS: BUN/Creatinine Ratio 7; Blood Urea Nitrogen 5 mg/dL (9-20); Calcium 8.3 mg/dL (8.4-10.2); Hemolysis Index 3
--- NOTE | 2017-10-22 07:46 | Progress Note ---
Assessment and Plan Assessment: 1) SIRS: Afebrile, Neutropenic- Leukemia? EBV IgM- Neg UC- less than 10,000 K BC- ngtd -CXR neg -CT abd neg -HIV neg -viral hep neg -CRP=2.4 3) ? 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 No abscess seen on prostate 4) Weight loss? Plan: -Continue cefepime and flagyl D6/ -Bone Marrow Biopsy scheduled for tomorrow -stop valtrex po - no evidence of HSV 2 -continue Senna for constipation [facility] M: [phone] O:[phone] Subjective Date of service: 10/22/17 Principal diagnosis: leukopenia Interval history: Patient was talking on the phone. He stated that he was unable to get the bone marrow biopsy today because he ate cereal this morning. He stated that he was anxious to get the results because his Mother and Sister from leukemia. Current Antimmicrobials Flagyl - 10/17 Previous Antimicrobials Cefriaxone Objective - Exam Narrative Exam: General appearance: Alert in NAD, conversant Eyes: anicteric sclerae, moist conjunctivae; no lid-lag; PERRLA HENT: Atraumatic; oropharynx clear with moist mucous membranes and no mucosal ulcerations/no oral thrush; normal hard and soft palate. Normal external ears. Neck: Trachea midline; supple, no thyromegaly or lymphadenopathy Lungs: CTA, with normal respiratory effort and no intercostal retractions CV: RRR, no murmurs Abdomen: Soft, non-tender; no masses or hepatosplenomegaly Extremities: No peripheral edema or extremity lymphadenopathy Skin: Superficial nodules at the johnson area. [place] Cervical lymph node palpable. Psych: Appropriate affect, alert and oriented to person, place and time. Neuro: alert and oriented x 3. Moving all extermities - Constitutional Vitals: Vital Signs Temp Pulse Resp BP Pulse Ox 98.7 F 59 L 18 124/71 98 10/22/17 05:51 10/22/17 05:51 10/22/17 05:51 10/22/17 05:51 10/22/17 05:51 Temperature -Last 24 Hours Temperature 98.7 F Temperature 98.4 F Temperature 98.8 F Temperature 98.8 F - Labs CBC & Chem 7: 10/22/17 06:00 10/22/17 06:00 Labs: Abnormal lab results 10/19/17 10/22/17 10/22/17 Range/Units 05:45 06:00 06:00 WBC 1.8 L* (4.5-11.0) K/mm3 RBC 1.97 L (3.65-5.03) M/mm3 Hgb 7.7 L (11.8-15.2) gm/dl Hct 22.7 L (35.5-45.6) % MCV 116 H (84-94) fl MCH 39 H (28-32) pg RDW 13.0 L (13.2-15.2) % Plt Count 106 L (140-440) K/mm3 BUN 5 L (9-20) mg/dL Creatinine 0.7 L (0.8-1.5) mg/dL Calcium 8.3 L (8.4-10.2) mg/dL HSV I Specific Ab 35.00 H (<0.90) Index
[2017-10-22] MEDS: SENOKOT PO SCH ×2 (08:13→22:09)
[2017-10-22] MEDS: VALTREX PO SCH (08:13)
[2017-10-22 08:38] LABS: Basophils % (Manual) 0 % (0.0-1.8); Eosinophils % (Manual) 0 % (0.0-4.3); Total Cells Counted 100
--- NOTE | 2017-10-22 08:38 | Hem/Onc Progress Note ---
Assessment and Plan # Leukopenia - Neutropenia - D/w path reg smear to evaluate for primary vs sec cytopenia. DUE BMBX TODAY # anemia - MACROcytosis # Low plt CT abdo done # anal fissures - being followed by Sx/GI team At one time - pt had fever - ID following - IX ongoing for infective etiology BP was slightly low in ER # h/o loss of wt - will follow - etiology unclear at this time - Patient Problems (1) Neutropenia Onset Date: ~10/16/17 Current Visit: Yes Status: Acute Subjective Date of service: 10/22/17 Interval history: feeling better no vomiting no abdo pain due BMBx today Objective - Constitutional Vitals: Last Vital Signs Temp 98.7 F 10/22/17 05:51 Pulse 59 L 10/22/17 05:51 Resp 18 10/22/17 05:51 BP 124/71 10/22/17 05:51 Pulse Ox 98 10/22/17 05:51 Pain Intensity (0-10): denies any pain General appearance: no acute distress Performance status: 0-fully active - EENT Eyes: PERRL ENT: clear oral mucosa Lymph node exam: negative cervical, negative supraclavicular - Neck Neck: supple - Respiratory Respiratory effort: Positive: normal Respiratory: negative: CTA - Cardiovascular Heart Sounds: Present: S1 & S2 Extremities: No edema - Gastrointestinal General gastrointestinal: Present: soft, non-tender Rectal Exam: deferred - Genitourinary Male genitourinary: Present: deferred - Integumentary Integumentary: clear - Labs Lab Results: Laboratory Results - last 24 hr 10/19/17 10/22/17 10/22/17 05:45 06:00 06:00 WBC 1.8 L* RBC 1.97 L Hgb 7.7 L Hct 22.7 L MCV 116 H MCH 39 H MCHC 34 RDW 13.0 L Plt Count 106 L Seg Neutrophils % Band Saw Marker Sodium 140 Potassium 3.9 Chloride 106.1 Carbon Dioxide 24 Anion Gap 14 BUN 5 L Creatinine 0.7 L Estimated GFR > 60 BUN/Creatinine Ratio 7 Glucose 92 Calcium 8.3 L HSV I Specific Ab 35.00 H
[2017-10-22 08:39] LABS: Platelet Estimate Consistent w Auto
[2017-10-22 08:40] LABS: Anisocytosis Few; Schistocytes Rare
--- NOTE | 2017-10-22 13:16 | Progress Note ---
Assessment and Plan Assessment and plan: Pancytopenia -Exact cause unknown -EBV IgM- neg, viral hep -neg, HIV neg -Scheduled for bone marrow biopsy in am -Continue neutropenic precautions -Heme/onco following SIRS without acute infection -UC, BC, CXR, CT abd neg Rectal pain --s/p EUA which showed large posterior anal fissure -cont NG cream Disposition: Pt is awaiting BM bopsy History Interval history: Patient has no new complaints. He anal pain has improved. Hospitalist Physical - Constitutional Vitals: Temp Pulse Resp BP Pulse Ox 98.3 F 57 L 16 119/68 97 10/22/17 11:27 10/22/17 11:27 10/22/17 11:27 10/22/17 11:27 10/22/17 11:27 General appearance: Present: no acute distress, well-nourished - EENT Eyes: Present: PERRL, EOM intact ENT: hearing intact, clear oral mucosa - Neck Neck: Present: supple - Respiratory Respiratory effort: normal Respiratory: bilateral: CTA - Cardiovascular Rhythm: regular Heart Sounds: Present: S1 & S2 - Extremities Extremities: No edema - Abdominal General gastrointestinal: soft, non-tender, normal bowel sounds - Neurologic Neurologic: CNII-XII intact Results - Labs CBC & Chem 7: 10/22/17 06:00 10/22/17 06:00 Labs: Laboratory Last Values WBC 1.8 K/mm3 (4.5-11.0) L* 10/22/17 06:00 RBC 1.97 M/mm3 (3.65-5.03) L 10/22/17 06:00 Hgb 7.7 gm/dl (11.8-15.2) L 10/22/17 06:00 Hct 22.7 % (35.5-45.6) L 10/22/17 06:00 MCV 116 fl (84-94) H 10/22/17 06:00 MCH 39 pg (28-32) H 10/22/17 06:00 MCHC 34 % (32-34) 10/22/17 06:00 RDW 13.0 % (13.2-15.2) L 10/22/17 06:00 Plt Count 106 K/mm3 (140-440) L 10/22/17 06:00 Add Manual Diff Complete 10/22/17 06:00 Total Counted 100 10/22/17 06:00 Seg Neutrophils % Investment Banker 10/22/17 06:00 Seg Neuts % (Manual) 43.0 % (40.0-70.0) 10/22/17 06:00 Band Neutrophils % 0 % 10/22/17 06:00 Lymphocytes % (Manual) 43.0 % (13.4-35.0) H 10/22/17 06:00 Reactive Lymphs % (Man) 0 % 10/22/17 06:00 Monocytes % (Manual) 14.0 % (0.0-7.3) H 10/22/17 06:00 Eosinophils % (Manual) 0 % (0.0-4.3) 10/22/17 06:00 Basophils % (Manual) 0 % (0.0-1.8) 10/22/17 06:00 Metamyelocytes % 0 % 10/22/17 06:00 Myelocytes % 0 % 10/22/17 06:00 Promyelocytes % 0 % 10/22/17 06:00 Blast Cells % 0 % 10/22/17 06:00 Nucleated RBC % Not Reportable 10/22/17 06:00 Seg Neutrophils # Man 0.8 K/mm3 (1.8-7.7) L 10/22/17 06:00 Band Neutrophils # 0.0 K/mm3 10/22/17 06:00 Lymphocytes # (Manual) 0.8 K/mm3 (1.2-5.4) L 10/22/17 06:00 Abs React Lymphs (Man) 0.0 K/mm3 10/22/17 06:00 Monocytes # (Manual) 0.3 K/mm3 (0.0-0.8) 10/22/17 06:00 Eosinophils # (Manual) 0.0 K/mm3 (0.0-0.4) 10/22/17 06:00 Basophils # (Manual) 0.0 K/mm3 (0.0-0.1) 10/22/17 06:00 Metamyelocytes # 0.0 K/mm3 10/22/17 06:00 Myelocytes # 0.0 K/mm3 10/22/17 06:00 Promyelocytes # 0.0 K/mm3 10/22/17 06:00 Blast Cells # 0.0 K/mm3 10/22/17 06:00 Pathologist Review 10/16/17 04:07 WBC Morphology Not Reportable 10/22/17 06:00 Hypersegmented Neuts Not Reportable 10/22/17 06:00 Hyposegmented Neuts Not Reportable 10/22/17 06:00 Hypogranular Neuts Not Reportable 10/22/17 06:00 Smudge Cells Not Reportable 10/22/17 06:00 Toxic Granulation Not Reportable 10/22/17 06:00 Toxic Vacuolation Not Reportable 10/22/17 06:00 Dohle Bodies Not Reportable 10/22/17 06:00 Pelger-Huet Anomaly Not Reportable 10/22/17 06:00 Raymundo Rods Not Reportable 10/22/17 06:00 Platelet Estimate Consistent w auto 10/22/17 06:00 Clumped Platelets Not Reportable 10/22/17 06:00 Plt Clumps, EDTA Not Reportable 10/22/17 06:00 Large Platelets Not Reportable 10/22/17 06:00 Giant Platelets Not Reportable 10/22/17 06:00 Platelet Satelliting Not Reportable 10/22/17 06:00 Plt Morphology Comment Not Reportable 10/22/17 06:00 RBC Morphology Not Reportable 10/22/17 06:00 Dimorphic RBCs Not Reportable 10/22/17 06:00 Polychromasia Not Reportable 10/22/17 06:00 Hypochromasia Not Reportable 10/22/17 06:00 Poikilocytosis Not Reportable 10/22/17 06:00 Anisocytosis Few 10/22/17 06:00 Microcytosis Not Reportable 10/22/17 06:00 Macrocytosis Not Reportable 10/22/17 06:00 Spherocytes Not Reportable 10/22/17 06:00 Pappenheimer Bodies Not Reportable 10/22/17 06:00 Sickle Cells Not Reportable 10/22/17 06:00 Target Cells Not Reportable 10/22/17 06:00 Tear Drop Cells Not Reportable 10/22/17 06:00 Ovalocytes Not Reportable 10/22/17 06:00 Helmet Cells Not Reportable 10/22/17 06:00 [place] Bodies Not Reportable 10/22/17 06:00 [place] Rings Not Reportable 10/22/17 06:00 [place] Cells Not Reportable 10/22/17 06:00 Bite Cells Not Reportable 10/22/17 06:00 Crenated Cell Not Reportable 10/22/17 06:00 Elliptocytes Not Reportable 10/22/17 06:00 Acanthocytes (Spur) Not Reportable 10/22/17 06:00 Rouleaux Not Reportable 10/22/17 06:00 Hemoglobin C Crystals Not Reportable 10/22/17 06:00 Schistocytes Rare 10/22/17 06:00 Malaria parasites Not Reportable 10/22/17 06:00 Eduin Bodies Not Reportable 10/22/17 06:00 Hem Pathologist Commnt No 10/22/17 06:00 PT 13.9 Sec. (12.2-14.9) 10/16/17 07:18 INR 1.02 (0.87-1.13) 10/16/17 07:18 APTT 35.5 Sec. (24.2-36.6) 10/16/17 07:18 Sodium 140 mmol/L (137-145) 10/22/17 06:00 Potassium 3.9 mmol/L (3.6-5.0) 10/22/17 06:00 Chloride 106.1 mmol/L (98-107) 10/22/17 06:00 Carbon Dioxide 24 mmol/L (22-30) 10/22/17 06:00 Anion Gap 14 mmol/L 10/22/17 06:00 BUN 5 mg/dL (9-20) L 10/22/17 06:00 Creatinine 0.7 mg/dL (0.8-1.5) L 10/22/17 06:00 Estimated GFR > 60 ml/min 10/22/17 06:00 BUN/Creatinine Ratio 7 % 10/22/17 06:00 Glucose 92 mg/dL (75-100) 10/22/17 06:00 POC Glucose 121 (70-105) H 10/17/17 11:31 Lactic Acid 0.70 mmol/L (0.7-2.0) 10/16/17 11:34 Calcium 8.3 mg/dL (8.4-10.2) L 10/22/17 06:00 Total Bilirubin 0.30 mg/dL (0.1-1.2) 10/16/17 04:07 AST 14 units/L (5-40) 10/16/17 04:07 ALT 11 units/L (7-56) 10/16/17 04:07 Alkaline Phosphatase 43 units/L (35-129) 10/16/17 04:07 Lactate Dehydrogenase 243 units/L (91-180) H 10/16/17 07:18 Troponin T < 0.010 ng/mL (0.00-0.029) 10/16/17 07:18 C-Reactive Protein 2.50 mg/dL (0.00-1.30) H 10/16/17 11:34 Total Protein 6.8 g/dL (6.3-8.2) 10/16/17 04:07 Albumin 3.6 g/dL (3.9-5) L 10/16/17 04:07 Albumin/Globulin Ratio 1.1 % 10/16/17 04:07 Vitamin B12 360.5 pg/mL (211-911) 10/16/17 07:18 Folate 7.41 ng/mL (7.3-26.0) 10/16/17 07:18 TSH 2.180 mlU/mL (0.270-4.200) 10/16/17 07:18 Urine Color [place] (Yellow) 10/16/17 06:20 Urine Turbidity Slightly-cloudy (Clear) 10/16/17 06:20 Urine pH 6.0 (5.0-7.0) 10/16/17 06:20 Ur Specific [place] 1.026 (1.003-1.030) 10/16/17 06:20 Urine Protein 100 mg/dl mg/dL (Negative) 10/16/17 06:20 Urine Glucose (UA) Neg mg/dL (Negative) 10/16/17 06:20 Urine Ketones Neg mg/dL (Negative) 10/16/17 06:20 Urine Blood Neg (Negative) 10/16/17 06:20 Urine Nitrite Neg (Negative) 10/16/17 06:20 Urine Bilirubin Neg (Negative) 10/16/17 06:20 Urine Urobilinogen 4.0 mg/dL (<2.0) 10/16/17 06:20 Ur Leukocyte Esterase Neg (Negative) 10/16/17 06:20 Urine WBC (Auto) 16.0 /HPF (0.0-6.0) H 10/16/17 06:20 Urine RBC (Auto) 8.0 /HPF (0.0-6.0) 10/16/17 06:20 U Epithel Cells (Auto) 1.0 /HPF (0-13.0) 10/16/17 06:20 Urine Mucus 3+ /HPF 10/16/17 06:20 RPR Nonreactive (Nonreactive) 10/16/17 07:18 EBV Capsid Ag IgG, IgM <36.00 U/mL (<36.00) 10/16/17 11:34 EBV Capsid Ag IgG Titer 71.00 U/mL (<18.00) H 10/16/17 11:34 EBV Nuclear Ag IgG Indx 292.00 U/mL (<18.00) H 10/16/17 11:34 EBV Interpretation Past 10/16/17 11:34 Hepatitis A IgM Ab Non-reactive (NonReactive) 10/16/17 07:18 Hep Bs Antigen Non-reactive (Negative) 10/16/17 07:18 Hep B Core IgM Ab Non-reactive (NonReactive) 10/16/17 07:18 Hepatitis C Antibody Nonreactive (NonReactive) 10/16/17 07:18 HSV I Specific Ab 35.00 Index (<0.90) H 10/19/17 05:45 HIV-1 RNA PCR copies/ml <20 Copies/mL 10/16/17 11:34 HIV-1 RNA (PCR) log <1.30 Log cps/mL 10/16/17 11:34 HIV 1&2 Antibody Rapid Non react (Non React) 10/16/17 07:18 HIV P24 Antigen Non react (Non React) 10/16/17 07:18 Schistocytes Smear None seen 10/16/17 07:18 Blood Type O POSITIVE 10/16/17 07:18 Antibody Screen Negative 10/16/17 07:18
[2017-10-23] MEDS: MORPHINE IV PRN ×3 (02:35→22:16)
[2017-10-23] MEDS: NACL 0.9% 1000 ML 1,000 ML IV SCH ×3 (02:41→19:21)
[2017-10-23] MEDS: MAXIPIME/NS 2 GM/100 ML 2 GM/100 ML BAG IV SCH (06:23)
[2017-10-23] MEDS: NITRO-BID 2% TP SCH ×2 (06:24→17:14)
[2017-10-23] MEDS: SENOKOT PO SCH ×2 (08:02→22:08)
[2017-10-23] MEDS ORDERED: SUBLIMAZE IV ONE (08:23)
[2017-10-23] MEDS ORDERED: VERSED IV ONE (08:23)
[2017-10-23] MEDS ORDERED: BENADRYL ONE (09:18)
[2017-10-23] MEDS ORDERED: BENADRYL IV ONE (09:50)
--- NOTE | 2017-10-23 12:28 | Progress Note ---
Assessment and Plan Assessment and plan: Pancytopenia -Exact cause unknown -EBV IgM- neg, viral hep -neg, HIV neg -S/P bone marrow biopsy today -Continue neutropenic precautions -Heme/onco following SIRS without acute infection -UC, BC, CXR, CT abd neg Rectal pain --s/p EUA which showed large posterior anal fissure -cont NG cream Disposition: For discharge when cleared by Heme/onco History Interval history: Patient has no new complaints. He was seen status post bone marrow biopsy today. Hospitalist Physical - Constitutional Vitals: Temp Pulse Resp BP Pulse Ox 98.6 F 60 17 121/79 100 10/23/17 04:34 10/23/17 09:43 10/23/17 09:43 10/23/17 09:43 10/23/17 09:43 General appearance: Present: no acute distress, well-nourished - EENT Eyes: Present: PERRL ENT: hearing intact, clear oral mucosa - Neck Neck: Present: supple - Respiratory Respiratory effort: normal Respiratory: bilateral: CTA - Cardiovascular Rhythm: regular Heart Sounds: Present: S1 & S2 - Extremities Extremities: No edema - Abdominal General gastrointestinal: soft, non-tender, normal bowel sounds - Neurologic Neurologic: CNII-XII intact Results - Labs CBC & Chem 7: 10/22/17 06:00 10/22/17 06:00 Labs: Laboratory Last Values WBC 1.8 K/mm3 (4.5-11.0) L* 10/22/17 06:00 RBC 1.97 M/mm3 (3.65-5.03) L 10/22/17 06:00 Hgb 7.7 gm/dl (11.8-15.2) L 10/22/17 06:00 Hct 22.7 % (35.5-45.6) L 10/22/17 06:00 MCV 116 fl (84-94) H 10/22/17 06:00 MCH 39 pg (28-32) H 10/22/17 06:00 MCHC 34 % (32-34) 10/22/17 06:00 RDW 13.0 % (13.2-15.2) L 10/22/17 06:00 Plt Count 106 K/mm3 (140-440) L 10/22/17 06:00 Add Manual Diff Complete 10/22/17 06:00 Total Counted 100 10/22/17 06:00 Seg Neutrophils % Education Faculty Member 10/22/17 06:00 Seg Neuts % (Manual) 43.0 % (40.0-70.0) 10/22/17 06:00 Band Neutrophils % 0 % 10/22/17 06:00 Lymphocytes % (Manual) 43.0 % (13.4-35.0) H 10/22/17 06:00 Reactive Lymphs % (Man) 0 % 10/22/17 06:00 Monocytes % (Manual) 14.0 % (0.0-7.3) H 10/22/17 06:00 Eosinophils % (Manual) 0 % (0.0-4.3) 10/22/17 06:00 Basophils % (Manual) 0 % (0.0-1.8) 10/22/17 06:00 Metamyelocytes % 0 % 10/22/17 06:00 Myelocytes % 0 % 10/22/17 06:00 Promyelocytes % 0 % 10/22/17 06:00 Blast Cells % 0 % 10/22/17 06:00 Nucleated RBC % Not Reportable 10/22/17 06:00 Seg Neutrophils # Man 0.8 K/mm3 (1.8-7.7) L 10/22/17 06:00 Band Neutrophils # 0.0 K/mm3 10/22/17 06:00 Lymphocytes # (Manual) 0.8 K/mm3 (1.2-5.4) L 10/22/17 06:00 Abs React Lymphs (Man) 0.0 K/mm3 10/22/17 06:00 Monocytes # (Manual) 0.3 K/mm3 (0.0-0.8) 10/22/17 06:00 Eosinophils # (Manual) 0.0 K/mm3 (0.0-0.4) 10/22/17 06:00 Basophils # (Manual) 0.0 K/mm3 (0.0-0.1) 10/22/17 06:00 Metamyelocytes # 0.0 K/mm3 10/22/17 06:00 Myelocytes # 0.0 K/mm3 10/22/17 06:00 Promyelocytes # 0.0 K/mm3 10/22/17 06:00 Blast Cells # 0.0 K/mm3 10/22/17 06:00 Pathologist Review 10/16/17 04:07 WBC Morphology Not Reportable 10/22/17 06:00 Hypersegmented Neuts Not Reportable 10/22/17 06:00 Hyposegmented Neuts Not Reportable 10/22/17 06:00 Hypogranular Neuts Not Reportable 10/22/17 06:00 Smudge Cells Not Reportable 10/22/17 06:00 Toxic Granulation Not Reportable 10/22/17 06:00 Toxic Vacuolation Not Reportable 10/22/17 06:00 Dohle Bodies Not Reportable 10/22/17 06:00 Pelger-Huet Anomaly Not Reportable 10/22/17 06:00 Raymundo Rods Not Reportable 10/22/17 06:00 Platelet Estimate Consistent w auto 10/22/17 06:00 Clumped Platelets Not Reportable 10/22/17 06:00 Plt Clumps, EDTA Not Reportable 10/22/17 06:00 Large Platelets Not Reportable 10/22/17 06:00 Giant Platelets Not Reportable 10/22/17 06:00 Platelet Satelliting Not Reportable 10/22/17 06:00 Plt Morphology Comment Not Reportable 10/22/17 06:00 RBC Morphology Not Reportable 10/22/17 06:00 Dimorphic RBCs Not Reportable 10/22/17 06:00 Polychromasia Not Reportable 10/22/17 06:00 Hypochromasia Not Reportable 10/22/17 06:00 Poikilocytosis Not Reportable 10/22/17 06:00 Anisocytosis Few 10/22/17 06:00 Microcytosis Not Reportable 10/22/17 06:00 Macrocytosis Not Reportable 10/22/17 06:00 Spherocytes Not Reportable 10/22/17 06:00 Pappenheimer Bodies Not Reportable 10/22/17 06:00 Sickle Cells Not Reportable 10/22/17 06:00 Target Cells Not Reportable 10/22/17 06:00 Tear Drop Cells Not Reportable 10/22/17 06:00 Ovalocytes Not Reportable 10/22/17 06:00 Helmet Cells Not Reportable 10/22/17 06:00 [place] Bodies Not Reportable 10/22/17 06:00 [place] Rings Not Reportable 10/22/17 06:00 [place] Cells Not Reportable 10/22/17 06:00 Bite Cells Not Reportable 10/22/17 06:00 Crenated Cell Not Reportable 10/22/17 06:00 Elliptocytes Not Reportable 10/22/17 06:00 Acanthocytes (Spur) Not Reportable 10/22/17 06:00 Rouleaux Not Reportable 10/22/17 06:00 Hemoglobin C Crystals Not Reportable 10/22/17 06:00 Schistocytes Rare 10/22/17 06:00 Malaria parasites Not Reportable 10/22/17 06:00 Eduin Bodies Not Reportable 10/22/17 06:00 Hem Pathologist Commnt No 10/22/17 06:00 PT 13.9 Sec. (12.2-14.9) 10/16/17 07:18 INR 1.02 (0.87-1.13) 10/16/17 07:18 APTT 35.5 Sec. (24.2-36.6) 10/16/17 07:18 Sodium 140 mmol/L (137-145) 10/22/17 06:00 Potassium 3.9 mmol/L (3.6-5.0) 10/22/17 06:00 Chloride 106.1 mmol/L (98-107) 10/22/17 06:00 Carbon Dioxide 24 mmol/L (22-30) 10/22/17 06:00 Anion Gap 14 mmol/L 10/22/17 06:00 BUN 5 mg/dL (9-20) L 10/22/17 06:00 Creatinine 0.7 mg/dL (0.8-1.5) L 10/22/17 06:00 Estimated GFR > 60 ml/min 10/22/17 06:00 BUN/Creatinine Ratio 7 % 10/22/17 06:00 Glucose 92 mg/dL (75-100) 10/22/17 06:00 POC Glucose 121 (70-105) H 10/17/17 11:31 Lactic Acid 0.70 mmol/L (0.7-2.0) 10/16/17 11:34 Calcium 8.3 mg/dL (8.4-10.2) L 10/22/17 06:00 Total Bilirubin 0.30 mg/dL (0.1-1.2) 09/04/18 04:07 AST 14 units/L (5-40) 10/16/17 04:07 ALT 11 units/L (7-56) 10/16/17 04:07 Alkaline Phosphatase 43 units/L (35-129) 10/16/17 04:07 Lactate Dehydrogenase 243 units/L (91-180) H 10/16/17 07:18 Troponin T < 0.010 ng/mL (0.00-0.029) 10/16/17 07:18 C-Reactive Protein 2.50 mg/dL (0.00-1.30) H 10/16/17 11:34 Total Protein 6.8 g/dL (6.3-8.2) 10/16/17 04:07 Albumin 3.6 g/dL (3.9-5) L 10/16/17 04:07 Albumin/Globulin Ratio 1.1 % 10/16/17 04:07 Vitamin B12 360.5 pg/mL (211-911) 10/16/17 07:18 Folate 7.41 ng/mL (7.3-26.0) 10/16/17 07:18 TSH 2.180 mlU/mL (0.270-4.200) 10/16/17 07:18 Urine Color [place] (Yellow) 10/16/17 06:20 Urine Turbidity Slightly-cloudy (Clear) 10/16/17 06:20 Urine pH 6.0 (5.0-7.0) 10/16/17 06:20 Ur Specific [place] 1.026 (1.003-1.030) 10/16/17 06:20 Urine Protein 100 mg/dl mg/dL (Negative) 10/16/17 06:20 Urine Glucose (UA) Neg mg/dL (Negative) 10/16/17 06:20 Urine Ketones Neg mg/dL (Negative) 10/16/17 06:20 Urine Blood Neg (Negative) 10/16/17 06:20 Urine Nitrite Neg (Negative) 10/16/17 06:20 Urine Bilirubin Neg (Negative) 10/16/17 06:20 Urine Urobilinogen 4.0 mg/dL (<2.0) 10/16/17 06:20 Ur Leukocyte Esterase Neg (Negative) 10/16/17 06:20 Urine WBC (Auto) 16.0 /HPF (0.0-6.0) H 09/04/18 06:20 Urine RBC (Auto) 8.0 /HPF (0.0-6.0) 10/16/17 06:20 U Epithel Cells (Auto) 1.0 /HPF (0-13.0) 10/16/17 06:20 Urine Mucus 3+ /HPF 10/16/17 06:20 RPR Nonreactive (Nonreactive) 10/16/17 07:18 EBV Capsid Ag IgG, IgM <36.00 U/mL (<36.00) 10/16/17 11:34 EBV Capsid Ag IgG Titer 71.00 U/mL (<18.00) H 10/16/17 11:34 EBV Nuclear Ag IgG Indx 292.00 U/mL (<18.00) H 10/16/17 11:34 EBV Interpretation Past 10/16/17 11:34 Hepatitis A IgM Ab Non-reactive (NonReactive) 10/16/17 07:18 Hep Bs Antigen Non-reactive (Negative) 10/16/17 07:18 Hep B Core IgM Ab Non-reactive (NonReactive) 10/16/17 07:18 Hepatitis C Antibody Nonreactive (NonReactive) 10/16/17 07:18 HSV I Specific Ab 35.00 Index (<0.90) H 10/19/17 05:45 HIV-1 RNA PCR copies/ml <20 Copies/mL 10/16/17 11:34 HIV-1 RNA (PCR) log <1.30 Log cps/mL 10/16/17 11:34 HIV 1&2 Antibody Rapid Non react (Non React) 10/16/17 07:18 HIV P24 Antigen Non react (Non React) 10/16/17 07:18 Schistocytes Smear None seen 10/16/17 07:18 Blood Type O POSITIVE 10/16/17 07:18 Antibody Screen Negative 10/16/17 07:18
--- NOTE | 2017-10-23 13:14 | Hem/Onc Progress Note ---
Assessment and Plan # Leukopenia - Neutropenia - s/p BMBx 10/22 - will await for results # anemia - MACROcytosis # Low plt CT abdo done # anal fissures - being followed by Sx/GI team At one time - pt had fever - ID following - IX ongoing for infective etiology BP was slightly low in ER # h/o loss of wt - will follow - etiology unclear at this time - Patient Problems (1) Neutropenia Onset Date: ~10/16/17 Current Visit: Yes Status: Acute Qualifiers: Neutropenia type: unspecified Qualified Code(s): D70.9 - Neutropenia, unspecified Subjective Date of service: 10/23/17 Principal diagnosis: leukopenia Interval history: feeling better no vomiting no abdo pain eating well s/p BMBx 10/22 Objective - Constitutional Vitals: Last Vital Signs Temp 98.6 F 10/23/17 04:34 Pulse 60 10/23/17 09:43 Resp 17 10/23/17 09:43 BP 121/79 10/23/17 09:43 Pulse Ox 100 10/23/17 09:43 Pain Intensity (0-10): denies any pain General appearance: no acute distress Performance status: 0-fully active - EENT Eyes: PERRL ENT: clear oral mucosa Lymph node exam: negative cervical, negative supraclavicular - Neck Neck: supple - Respiratory Respiratory effort: Positive: normal Respiratory: negative: CTA - Cardiovascular Heart Sounds: Present: S1 & S2 Extremities: No edema - Gastrointestinal General gastrointestinal: Present: soft, non-tender Rectal Exam: deferred - Genitourinary Male genitourinary: Present: deferred - Musculoskeletal Musculoskeletal: strength equal bilaterally - Neurologic Neurologic: moves all extremities
[2017-10-24] MEDS: NACL 0.9% 1000 ML 1,000 ML IV SCH ×3 (04:10→17:45)
[2017-10-24 05:43] LABS: Hematocrit 22.5 % (35.5-45.6); Hemoglobin 7.7 gm/dl (11.8-15.2); Mean Corpuscular HGB Conc 34 % (32-34); Mean Corpuscular Hemoglobin 40 pg (28-32); Platelet Count 113 K/mm3 (140-440); Red Blood Count 1.96 M/mm3 (3.65-5.03); Red Cell Distribution Width 13.3 % (13.2-15.2)
[2017-10-24 05:52] LABS: Mean Corpuscular Volume 115 fl (84-94)
[2017-10-24] MEDS: MORPHINE IV PRN ×5 (06:14→23:22)
[2017-10-24] MEDS: NITRO-BID 2% TP SCH ×2 (06:17→14:00)
--- NOTE | 2017-10-24 08:36 | Progress Note ---
Assessment and Plan Assessment: 1) SIRS: Afebrile, Neutropenic- Leukemia? EBV IgM- Neg UC- less than 10,000 K BC- ngtd -CXR neg -CT abd neg -HIV neg -viral hep neg -CRP=2.4 3) ? 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 No abscess seen on prostate 4) Weight loss? Plan: -continue Senna for constipation Dr. Noyola consulted with Dr. Lang from path and report will be read this afternoon Will be seen on 10/26 [facility] M: [phone] O:[phone] Subjective Date of service: 10/24/17 Principal diagnosis: leukopenia Interval history: Patient was watching television today. he stated that he had his MRI done yesterday and he is anxiously waiting the results. He denies any pain. Current Antimmicrobials Previous Antimicrobials Cefriaxone Flagyl Objective - Exam Narrative Exam: General appearance: Alert in NAD, conversant Eyes: anicteric sclerae, moist conjunctivae; no lid-lag; PERRLA HENT: Atraumatic; oropharynx clear with moist mucous membranes and no mucosal ulcerations/no oral thrush; normal hard and soft palate. Normal external ears. Neck: Trachea midline; supple, no thyromegaly or lymphadenopathy Lungs: CTA, with normal respiratory effort and no intercostal retractions CV: RRR, no murmurs Abdomen: Soft, non-tender; no masses or hepatosplenomegaly Extremities: No peripheral edema or extremity lymphadenopathy Skin: Superficial nodules at the johnson area. Vickey Cervical lymph node palpable. Psych: Appropriate affect, alert and oriented to person, place and time. Neuro: alert and oriented x 3. Moving all extermities - Constitutional Vitals: Vital Signs Temp Pulse Resp BP Pulse Ox 98.3 F 81 20 108/59 98 10/24/17 05:38 10/24/17 05:38 10/24/17 06:44 10/24/17 05:38 10/24/17 05:38 Temperature -Last 24 Hours Temperature 98.3 F Temperature 98.5 F Temperature 98.0 F Temperature 97.3 F - Labs CBC & Chem 7: 10/24/17 05:06 10/22/17 06:00 Labs: Abnormal lab results 10/24/17 Range/Units 05:06 WBC 1.8 L* (4.5-11.0) K/mm3 RBC 1.96 L (3.65-5.03) M/mm3 Hgb 7.7 L (11.8-15.2) gm/dl Hct 22.5 L (35.5-45.6) % MCV 115 H (84-94) fl MCH 40 H (28-32) pg Plt Count 113 L (140-440) K/mm3
[2017-10-24 08:51] LABS: Basophils % (Manual) 0 % (0.0-1.8); Total Cells Counted 100
[2017-10-24 08:55] LABS: Anisocytosis 1+; Macrocytosis 1+
[2017-10-24 08:56] LABS: Platelet Estimate Cons
[2017-10-24] MEDS: SENOKOT PO SCH ×2 (10:33→20:49)
--- NOTE | 2017-10-24 11:38 | Progress Note ---
Assessment and Plan Pancytopenia -Exact cause unknown -EBV IgM- neg, viral hep -neg, HIV neg -S/P bone marrow biopsy, wait for result -Continue neutropenic precautions -Heme/onco following SIRS without acute infection -UC, BC, CXR, CT abd neg Rectal pain --s/p EUA which showed large posterior anal fissure -cont NG cream Disposition: For discharge when cleared by Heme/onco Hospitalist Physical General appearance: Present: no acute distress, well-nourished - EENT Eyes: Present: PERRL ENT: hearing intact, clear oral mucosa - Neck Neck: Present: supple - Respiratory Respiratory effort: normal Respiratory: bilateral: CTA - Cardiovascular Rhythm: regular Heart Sounds: Present: S1 & S2 - Extremities Extremities: No edema - Abdominal General gastrointestinal: soft, non-tender, normal bowel sounds - Neurologic Neurologic: CNII-XII intact Subjective Date of service: 10/24/17 Principal diagnosis: leukopenia Interval history: Patient has no new complaints. refused to go home w/o knowing biopsy result Objective - Constitutional Vitals: Vital Signs - 12hr 10/24/17 10/24/17 10/24/17 05:38 06:14 06:44 Temperature 98.3 F Pulse Rate 81 Respiratory 18 20 20 Rate Blood Pressure 108/59 O2 Sat by Pulse 98 Oximetry - Labs CBC & Chem 7: 10/24/17 05:06 10/22/17 06:00 Labs: Abnormal lab results 10/24/17 Range/Units 05:06 WBC 1.8 L* (4.5-11.0) K/mm3 RBC 1.96 L (3.65-5.03) M/mm3 Hgb 7.7 L (11.8-15.2) gm/dl Hct 22.5 L (35.5-45.6) % MCV 115 H (84-94) fl MCH 40 H (28-32) pg Plt Count 113 L (140-440) K/mm3 Seg Neuts % (Manual) 30.0 L (40.0-70.0) % Lymphocytes % (Manual) 62.0 H (13.4-35.0) % Seg Neutrophils # Man 0.5 L (1.8-7.7) K/mm3 Lymphocytes # (Manual) 1.1 L (1.2-5.4) K/mm3
--- NOTE | 2017-10-24 12:14 | Hem/Onc Progress Note ---
Assessment and Plan # Leukopenia - Neutropenia - s/p BMBx 10/22 - will await for results # anemia - MACROcytosis # Low plt CT abdo done # anal fissures - being followed by Sx/GI team At one time - pt had fever - ID following - IX ongoing for infective etiology BP was slightly low in ER # h/o loss of wt - will follow - etiology unclear at this time called path for - pending report - 10/24 - the pathologist mentioned that the report will take 4-5 days OP follow up an option - Patient Problems (1) Neutropenia Onset Date: ~10/16/17 Current Visit: Yes Status: Acute Qualifiers: Neutropenia type: unspecified Qualified Code(s): D70.9 - Neutropenia, unspecified Subjective Date of service: 10/24/17 Principal diagnosis: low wbc Interval history: feeling better no vomiting no abdo pain eating well s/p BMBx 10/22 Objective - Constitutional Vitals: Last Vital Signs Temp 98.3 F 10/24/17 05:38 Pulse 81 10/24/17 05:38 Resp 20 10/24/17 06:44 BP 108/59 10/24/17 05:38 Pulse Ox 98 10/24/17 05:38 Pain Intensity (0-10): denies any pain General appearance: no acute distress Performance status: 0-fully active - EENT Eyes: PERRL ENT: clear oral mucosa Lymph node exam: negative cervical, negative supraclavicular - Neck Neck: supple - Respiratory Respiratory effort: Positive: normal Respiratory: bilateral: CTA - Cardiovascular Heart Sounds: Present: S1 & S2 Extremities: No edema - Gastrointestinal General gastrointestinal: Present: soft, non-tender Rectal Exam: deferred - Genitourinary Male genitourinary: Present: deferred - Integumentary Integumentary: warm - Musculoskeletal Musculoskeletal: strength equal bilaterally - Neurologic Neurologic: moves all extremities - Psychiatric Psychiatric: appropriate mood/affect - Allied health notes Allied health notes reviewed: nursing - Labs Lab Results: Laboratory Results - last 24 hr 10/24/17 05:06 WBC 1.8 L* RBC 1.96 L Hgb 7.7 L Hct 22.5 L MCV 115 H MCH 40 H MCHC 34 RDW 13.3 Plt Count 113 L Add Manual Diff Complete Total Counted 100 Seg Neutrophils % Reliability Manager Seg Neuts % (Manual) 30.0 L Band Neutrophils % 0 Lymphocytes % (Manual) 62.0 H Reactive Lymphs % (Man) 0 Monocytes % (Manual) 6.0 Eosinophils % (Manual) 2.0 Basophils % (Manual) 0 Metamyelocytes % 0 Myelocytes % 0 Promyelocytes % 0 Blast Cells % 0 Nucleated RBC % Not Reportable Seg Neutrophils # Man 0.5 L Band Neutrophils # 0.0 Lymphocytes # (Manual) 1.1 L Abs React Lymphs (Man) 0.0 Monocytes # (Manual) 0.1 Eosinophils # (Manual) 0.0 Basophils # (Manual) 0.0 Metamyelocytes # 0.0 Myelocytes # 0.0 Promyelocytes # 0.0 Blast Cells # 0.0 WBC Morphology Not Reportable Hypersegmented Neuts Not Reportable Hyposegmented Neuts Not Reportable Hypogranular Neuts Not Reportable Smudge Cells Not Reportable Toxic Granulation Not Reportable Toxic Vacuolation Not Reportable Dohle Bodies Not Reportable Pelger-Huet Anomaly Not Reportable Raymundo Rods Not Reportable Platelet Estimate Cons Clumped Platelets Not Reportable Plt Clumps, EDTA Not Reportable Large Platelets Not Reportable Giant Platelets Not Reportable Platelet Satelliting Not Reportable Plt Morphology Comment Not Reportable RBC Morphology Not Reportable Dimorphic RBCs Not Reportable Polychromasia Not Reportable Hypochromasia Not Reportable Poikilocytosis Not Reportable Anisocytosis 1+ Microcytosis Not Reportable Macrocytosis 1+ Spherocytes Not Reportable Pappenheimer Bodies Not Reportable Sickle Cells Not Reportable Target Cells Not Reportable Tear Drop Cells Not Reportable Ovalocytes Not Reportable Helmet Cells Not Reportable Whalen-[place] Bodies Not Reportable [place] Rings Not Reportable [place] Cells Not Reportable Bite Cells Not Reportable Crenated Cell Not Reportable Elliptocytes Not Reportable Acanthocytes (Spur) Not Reportable Rouleaux Not Reportable Hemoglobin C Crystals Not Reportable Schistocytes Not Reportable Malaria parasites Not Reportable Eduin Bodies Not Reportable Hem Pathologist Commnt No
[2017-10-25] MEDS: NITRO-BID 2% TP SCH ×2 (06:00→15:57)
[2017-10-25] MEDS: SENOKOT PO SCH ×2 (11:16→22:15)
[2017-10-25] MEDS: MORPHINE IV PRN (11:24)
--- NOTE | 2017-10-25 13:01 | Hem/Onc Progress Note ---
Assessment and Plan # Leukopenia - Neutropenia - s/p BMBx 10/22 - will await for results # anemia - MACROcytosis # Low plt CT abdo done # anal fissures - being followed by Sx/GI team At one time - pt had fever - ID following - IX ongoing for infective etiology BP was slightly low in ER # h/o loss of wt - will follow - etiology unclear at this time called path for - pending report - 10/24 - the pathologist mentioned that the report will take 4-5 days OP follow up an option - Patient Problems (1) Neutropenia Onset Date: ~10/16/17 Current Visit: Yes Status: Acute Qualifiers: Neutropenia type: unspecified Qualified Code(s): D70.9 - Neutropenia, unspecified Subjective Date of service: 10/25/17 Principal diagnosis: low wbc Interval history: feeling better no vomiting no abdo pain eating well s/p BMBx 10/22 - path final pending - 10/25 Objective - Constitutional Vitals: Last Vital Signs Temp 98.4 F 10/24/17 23:48 Pulse 55 L 10/24/17 23:48 Resp 20 10/24/17 23:48 BP 133/76 10/24/17 23:48 Pulse Ox 98 10/25/17 09:56 Pain Intensity (0-10): denies any pain General appearance: no acute distress Performance status: 0-fully active - EENT Eyes: PERRL ENT: clear oral mucosa Lymph node exam: bilateral cervical, bilateral supraclavicular - Neck Neck: supple - Respiratory Respiratory effort: Positive: normal Respiratory: bilateral: CTA - Cardiovascular Heart Sounds: Present: S1 & S2 Extremities: No edema - Gastrointestinal General gastrointestinal: Present: soft, non-tender Rectal Exam: deferred - Genitourinary Male genitourinary: Present: deferred - Integumentary Integumentary: warm - Musculoskeletal Musculoskeletal: strength equal bilaterally - Neurologic Neurologic: moves all extremities - Psychiatric Psychiatric: appropriate mood/affect - Allied health notes Allied health notes reviewed: nursing - Labs Lab Results: Laboratory Results - last 24 hr 10/16/17 10/22/17 10/22/17 11:34 06:01 13:26 CMV DNA PCR log [employer]/mL See scanned report Flow Intrp 16+ Markers Scanned into med rec Flow Cytometry Interp Scanned into [employer] Miscellaneous Test Flexitest 1 H 09/10/18 13:26 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
[2017-10-25 14:06] LABS: Hematocrit 22.1 % (35.5-45.6); Hemoglobin 7.8 gm/dl (11.8-15.2); Mean Corpuscular HGB Conc 35 % (32-34); Mean Corpuscular Hemoglobin 41 pg (28-32); Platelet Count 137 K/mm3 (140-440); Red Blood Count 1.91 M/mm3 (3.65-5.03); Red Cell Distribution Width 13.2 % (13.2-15.2)
[2017-10-25 14:09] LABS: Mean Corpuscular Volume 116 fl (84-94)
[2017-10-25 14:45] LABS: Anisocytosis 1+; Basophils % (Manual) 0 % (0.0-1.8); Eosinophils % (Manual) 0 % (0.0-4.3); Macrocytosis 1+; Total Cells Counted 100
[2017-10-25 14:46] LABS: Platelet Estimate Cons
--- NOTE | 2017-10-25 15:10 | Progress Note ---
Assessment and Plan Pancytopenia -Exact cause unknown -EBV IgM- neg, viral hep -neg, HIV neg -S/P bone marrow biopsy, wait for result -Continue neutropenic precautions -Heme/onco following SIRS without acute infection -UC, BC, CXR, CT abd neg Rectal pain --s/p EUA which showed large posterior anal fissure -cont NG cream Disposition: For discharge when cleared by Heme/onco Hospitalist Physical General appearance: Present: no acute distress, well-nourished - EENT Eyes: Present: PERRL ENT: hearing intact, clear oral mucosa - Neck Neck: Present: supple - Respiratory Respiratory effort: normal Respiratory: bilateral: CTA - Cardiovascular Rhythm: regular Heart Sounds: Present: S1 & S2 - Extremities Extremities: No edema - Abdominal General gastrointestinal: soft, non-tender, normal bowel sounds - Neurologic Neurologic: CNII-XII intact Subjective Date of service: 10/25/17 Principal diagnosis: low wbc Interval history: Patient has no new complaints. refused to go home w/o knowing biopsy result Objective - Constitutional Vitals: Vital Signs - 12hr 10/25/17 10/25/17 10/25/17 06:49 09:56 13:05 Temperature 98.1 F 98.1 F Pulse Rate 59 L 64 Respiratory 18 18 Rate Blood Pressure 113/69 125/65 O2 Sat by Pulse 97 98 96 Oximetry - Labs CBC & Chem 7: 10/25/17 13:14 10/22/17 06:00 Labs: Abnormal lab results 10/22/17 10/25/17 Range/Units 06:01 13:14 WBC 1.9 L* (4.5-11.0) K/mm3 RBC 1.91 L (3.65-5.03) M/mm3 Hgb 7.8 L (11.8-15.2) gm/dl Hct 22.1 L (35.5-45.6) % MCV 116 H (84-94) fl MCH 41 H (28-32) pg MCHC 35 H (32-34) % Plt Count 137 L (140-440) K/mm3 Lymphocytes % (Manual) 38.0 H (13.4-35.0) % Monocytes % (Manual) 13.0 H (0.0-7.3) % Seg Neutrophils # Man 0.9 L (1.8-7.7) K/mm3 Lymphocytes # (Manual) 0.7 L (1.2-5.4) K/mm3 Miscellaneous Test Flexitest 1 H
[2017-10-25] MEDS: NACL 0.9% 1000 ML 1,000 ML IV SCH ×2 (15:52→22:13)
[2017-10-25] MEDS ORDERED: XYLOCAINE TOPICAL 5% TP ONE (18:00)
[2017-10-25] MEDS: TYLENOL PO PRN (22:15)
[2017-10-26] MEDS: NACL 0.9% 1000 ML 1,000 ML IV SCH (05:43)
[2017-10-26] MEDS: NITRO-BID 2% TP SCH ×2 (05:46→16:27)
--- NOTE | 2017-10-26 07:58 | Progress Note ---
Assessment and Plan Assessment: 1) SIRS: Afebrile, Neutropenic, wbc 1.9, Leukemia,? EBV IgM- Neg UC- less than 10,000 K BC- ngtd -CXR neg -CT abd neg -HIV neg -viral hep neg -CRP=2.4 3) ? 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 No abscess seen on prostate 4) Weight loss? Plan: Dr Hernadez states that bone marrow report will be available in 4-5 days Discharge to be cleared by HEM/ONCOLOGY Patient will be seen on 10/29 Dr. Noyola will be covering on the phone during the weekend, please call her with questions. [facility] M: [phone] O:[phone] Subjective Date of service: 10/26/17 Principal diagnosis: low wbc Interval history: Patient was sitting on the side of the bed, fully dressed. Patient stated that he was doing well and was anxious to go home. Current Antimmicrobials Previous Antimicrobials Cefriaxone Flagyl Objective - Exam Narrative Exam: General appearance: Alert in NAD, conversant Eyes: anicteric sclerae, moist conjunctivae; no lid-lag; PERRLA HENT: Atraumatic; oropharynx clear with moist mucous membranes and no mucosal ulcerations/no oral thrush; normal hard and soft palate. Normal external ears. Neck: Trachea midline; supple, no thyromegaly or lymphadenopathy Lungs: CTA, with normal respiratory effort and no intercostal retractions CV: RRR, no murmurs Abdomen: Soft, non-tender; no masses or hepatosplenomegaly Extremities: No peripheral edema or extremity lymphadenopathy Skin: Superficial nodules at the johnson area. Vickey Cervical lymph node palpable. Psych: Appropriate affect, alert and oriented to person, place and time. Neuro: alert and oriented x 3. Moving all extermities - Constitutional Vitals: Vital Signs Temp Pulse Resp BP Pulse Ox 98.1 F 70 18 102/56 95 10/26/17 05:54 10/26/17 05:54 10/26/17 05:54 10/26/17 05:54 10/26/17 05:54 Temperature -Last 24 Hours Temperature 98.1 F Temperature 98.4 F Temperature 98.1 F - Labs CBC & Chem 7: 10/26/17 08:14 10/22/17 06:00 Labs: Abnormal lab results 10/25/17 Range/Units 13:14 WBC 1.9 L* (4.5-11.0) K/mm3 RBC 1.91 L (3.65-5.03) M/mm3 Hgb 7.8 L (11.8-15.2) gm/dl Hct 22.1 L (35.5-45.6) % MCV 116 H (84-94) fl MCH 41 H (28-32) pg MCHC 35 H (32-34) % Plt Count 137 L (140-440) K/mm3 Lymphocytes % (Manual) 38.0 H (13.4-35.0) % Monocytes % (Manual) 13.0 H (0.0-7.3) % Seg Neutrophils # Man 0.9 L (1.8-7.7) K/mm3 Lymphocytes # (Manual) 0.7 L (1.2-5.4) K/mm3
[2017-10-26 08:21] LABS: Hematocrit 22.2 % (35.5-45.6); Hemoglobin 7.7 gm/dl (11.8-15.2); Mean Corpuscular HGB Conc 35 % (32-34); Mean Corpuscular Hemoglobin 40 pg (28-32); Platelet Count 128 K/mm3 (140-440); Red Blood Count 1.92 M/mm3 (3.65-5.03); Red Cell Distribution Width 13.4 % (13.2-15.2)
[2017-10-26 08:30] LABS: Mean Corpuscular Volume 116 fl (84-94)
[2017-10-26] MEDS: SENOKOT PO SCH ×2 (10:15→22:03)
--- NOTE | 2017-10-26 13:05 | Hem/Onc Progress Note ---
Assessment and Plan # Leukopenia - Neutropenia - s/p BMBx 10/22 - will await for results Flowcytometry - Blasts present. PT will await till final path report of BMBX as there is suspicion of neoplastic process - d/w pt and his family member reg same. # anemia - MACROcytosis # Low plt CT abdo done # anal fissures - being followed by Sx/GI team At one time - pt had fever - ID following - IX ongoing for infective etiology BP was slightly low in ER # h/o loss of wt - will follow - etiology unclear at this time 10/26 - D/w pathologist - 20% immature cells with left shift -final will come on ? sunday - Patient Problems (1) Neutropenia Onset Date: ~10/16/17 Current Visit: Yes Status: Acute Qualifiers: Neutropenia type: unspecified Qualified Code(s): D70.9 - Neutropenia, unspecified Subjective Date of service: 10/26/17 Principal diagnosis: leukopenia Interval history: feeling better no vomiting no abdo pain eating well s/p BMBx 10/22 - path final pending - 10/26 Objective - Constitutional Vitals: Last Vital Signs Temp 98.1 F 10/26/17 05:54 Pulse 70 10/26/17 05:54 Resp 18 10/26/17 05:54 BP 102/56 10/26/17 05:54 Pulse Ox 95 10/26/17 05:54 Pain Intensity (0-10): denies any pain General appearance: no acute distress Performance status: 0-fully active - EENT Eyes: PERRL ENT: clear oral mucosa Lymph node exam: negative cervical, negative supraclavicular - Neck Neck: supple - Respiratory Respiratory effort: Positive: normal Respiratory: bilateral: CTA - Cardiovascular Heart Sounds: Present: S1 & S2 Extremities: No edema - Gastrointestinal General gastrointestinal: Present: soft, non-tender Rectal Exam: deferred - Genitourinary Male genitourinary: Present: deferred - Integumentary Integumentary: warm - Musculoskeletal Musculoskeletal: strength equal bilaterally - Neurologic Neurologic: moves all extremities - Psychiatric Psychiatric: appropriate mood/affect - Allied health notes Allied health notes reviewed: nursing - Labs Lab Results: Laboratory Results - last 24 hr 10/25/17 10/26/17 13:14 08:14 WBC 1.9 L* 1.7 L* RBC 1.91 L 1.92 L Hgb 7.8 L 7.7 L Hct 22.1 L 22.2 L MCV 116 H 116 H MCH 41 H 40 H MCHC 35 H 35 H RDW 13.2 13.4 Plt Count 137 L 128 L Add Manual Diff Complete Total Counted 100 Seg Neuts % (Manual) 47.0 Band Neutrophils % 0 Lymphocytes % (Manual) 38.0 H Reactive Lymphs % (Man) 2.0 Monocytes % (Manual) 13.0 H Eosinophils % (Manual) 0 Basophils % (Manual) 0 Metamyelocytes % 0 Myelocytes % 0 Promyelocytes % 0 Blast Cells % 0 Nucleated RBC % Not Reportable Seg Neutrophils # Man 0.9 L Band Neutrophils # 0.0 Lymphocytes # (Manual) 0.7 L Abs React Lymphs (Man) 0.0 Monocytes # (Manual) 0.2 Eosinophils # (Manual) 0.0 Basophils # (Manual) 0.0 Metamyelocytes # 0.0 Myelocytes # 0.0 Promyelocytes # 0.0 Blast Cells # 0.0 WBC Morphology Not Reportable Hypersegmented Neuts Not Reportable Hyposegmented Neuts Not Reportable Hypogranular Neuts Not Reportable Smudge Cells Not Reportable Toxic Granulation Not Reportable Toxic Vacuolation Not Reportable Dohle Bodies Not Reportable Pelger-Huet Anomaly Not Reportable Raymundo Rods Not Reportable Platelet Estimate Cons Clumped Platelets Not Reportable Plt Clumps, EDTA Not Reportable Large Platelets Not Reportable Giant Platelets Not Reportable Platelet Satelliting Not Reportable Plt Morphology Comment Not Reportable RBC Morphology Not Reportable Dimorphic RBCs Not Reportable Polychromasia Not Reportable Hypochromasia Not Reportable Poikilocytosis Not Reportable Anisocytosis 1+ Microcytosis Not Reportable Macrocytosis 1+ Spherocytes Not Reportable Pappenheimer Bodies Not Reportable Sickle Cells Not Reportable Target Cells Not Reportable Tear Drop Cells Not Reportable Ovalocytes Not Reportable Helmet Cells Not Reportable Whalen-[place] Bodies Not Reportable [place] Rings Not Reportable [place] Cells Not Reportable Bite Cells Not Reportable Crenated Cell Not Reportable Elliptocytes Not Reportable Acanthocytes (Spur) Not Reportable Rouleaux Not Reportable Hemoglobin C Crystals Not Reportable Schistocytes Not Reportable Malaria parasites Not Reportable Eduin Bodies Not Reportable Hem Pathologist Commnt No
--- NOTE | 2017-10-26 16:57 | Progress Note ---
Assessment and Plan Pancytopenia -Exact cause unknown -EBV IgM- neg, viral hep -neg, HIV neg -S/P bone marrow biopsy, initial result showed hypocellular bone marrow - flow cytometry left shifted myeloid mutation -Continue neutropenic precautions -Heme/onco following, wait for full biopsy report SIRS without acute infection -UC, BC, CXR, CT abd neg Rectal pain --s/p EUA which showed large posterior anal fissure and b/l pudental nerve block -cont NG cream Disposition: For discharge when cleared by Heme/onco Hospitalist Physical General appearance: Present: no acute distress, well-nourished - EENT Eyes: Present: PERRL ENT: hearing intact, clear oral mucosa - Neck Neck: Present: supple - Respiratory Respiratory effort: normal Respiratory: bilateral: CTA - Cardiovascular Rhythm: regular Heart Sounds: Present: S1 & S2 - Extremities Extremities: No edema - Abdominal General gastrointestinal: soft, non-tender, normal bowel sounds - Neurologic Neurologic: CNII-XII intact Subjective Date of service: 10/26/17 Principal diagnosis: leukopenia Interval history: Patient has no new complaints. denies any chest pain, tolerating diet discussed the preliminary results of flow cytometry with him Objective - Constitutional Vitals: Vital Signs - 12hr 10/26/17 10/26/17 05:54 13:00 Temperature 98.1 F 98.3 F Pulse Rate 70 74 Respiratory 18 15 Rate Blood Pressure 102/56 123/72 O2 Sat by Pulse 95 99 Oximetry - Labs CBC & Chem 7: 10/27/17 06:34 10/27/17 06:34 Labs: Abnormal lab results 10/26/17 Range/Units 08:14 WBC 1.7 L* (4.5-11.0) K/mm3 RBC 1.92 L (3.65-5.03) M/mm3 Hgb 7.7 L (11.8-15.2) gm/dl Hct 22.2 L (35.5-45.6) % MCV 116 H (84-94) fl MCH 40 H (28-32) pg MCHC 35 H (32-34) % Plt Count 128 L (140-440) K/mm3
[2017-10-27] MEDS: NITRO-BID 2% TP SCH ×2 (05:46→13:21)
[2017-10-27 07:19] LABS: Hematocrit 22.9 % (35.5-45.6); Hemoglobin 7.8 gm/dl (11.8-15.2); Mean Corpuscular HGB Conc 34 % (32-34); Mean Corpuscular Hemoglobin 40 pg (28-32); Platelet Count 144 K/mm3 (140-440); Red Blood Count 1.97 M/mm3 (3.65-5.03); Red Cell Distribution Width 13.6 % (13.2-15.2)
[2017-10-27 07:36] LABS: Mean Corpuscular Volume 116 fl (84-94)
[2017-10-27 07:37] LABS: Alanine Aminotransferase 32 units/L (7-56); Albumin 3.6 g/dL (3.9-5); BUN/Creatinine Ratio 17; Blood Urea Nitrogen 12 mg/dL (9-20); Calcium 8.8 mg/dL (8.4-10.2); Hemolysis Index 2; Uric Acid 3.7 mg/dL (3.5-7.6)
[2017-10-27] MEDS: ZYLOPRIM PO SCH ×2 (09:35→12:08)
[2017-10-27] MEDS: SENOKOT PO SCH ×2 (09:36→22:41)
[2017-10-27 10:21] LABS: Anisocytosis 1+; Basophils % (Manual) 0 % (0.0-1.8); Macrocytosis 1+; Total Cells Counted 100
--- NOTE | 2017-10-27 17:18 | Progress Note ---
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 - Continue neutropenic precautions - Heme/onco following, wait for full biopsy report - started on allopurinol today SIRS without acute infection -UC, BC, CXR, CT abd neg Rectal pain --s/p EUA which showed large posterior anal fissure and b/l pudental nerve block - cont NG cream Disposition: For discharge when cleared by Heme/onco Hospitalist Physical General appearance: Present: no acute distress, well-nourished - EENT Eyes: Present: PERRL ENT: hearing intact, clear oral mucosa - Neck Neck: Present: supple - Respiratory Respiratory effort: normal Respiratory: bilateral: CTA - Cardiovascular Rhythm: regular Heart Sounds: Present: S1 & S2 - Extremities Extremities: No edema - Abdominal General gastrointestinal: soft, non-tender, normal bowel sounds - Neurologic Neurologic: CNII-XII intact Subjective Date of service: 10/27/17 Principal diagnosis: leukopenia Interval history: Patient has no new complaints. denies any chest pain, tolerating diet bone marrow biopsy result pending Objective - Constitutional Vitals: Vital Signs - 12hr 10/27/17 10/27/17 05:48 12:45 Temperature 98.5 F 97.8 F Pulse Rate 69 67 Respiratory 16 18 Rate Blood Pressure 110/68 131/70 O2 Sat by Pulse 98 99 Oximetry - Labs CBC & Chem 7: 10/27/17 06:34 10/27/17 06:34 Labs: Abnormal lab results 10/27/17 10/27/17 Range/Units 06:34 06:34 WBC 1.9 L* (4.5-11.0) K/mm3 RBC 1.97 L (3.65-5.03) M/mm3 Hgb 7.8 L (11.8-15.2) gm/dl Hct 22.9 L (35.5-45.6) % MCV 116 H (84-94) fl MCH 40 H (28-32) pg Seg Neuts % (Manual) 28.0 L (40.0-70.0) % Lymphocytes % (Manual) 56.0 H (13.4-35.0) % Monocytes % (Manual) 13.0 H (0.0-7.3) % Seg Neutrophils # Man 0.5 L (1.8-7.7) K/mm3 Lymphocytes # (Manual) 1.1 L (1.2-5.4) K/mm3 Creatinine 0.7 L (0.8-1.5) mg/dL Total Protein 6.1 L (6.3-8.2) g/dL Albumin 3.6 L (3.9-5) g/dL
--- NOTE | 2017-10-27 18:42 | Hem/Onc Progress Note ---
Assessment and Plan # Leukopenia - Neutropenia - s/p BMBx 10/22 - will await for results Flowcytometry - Blasts present. PT will await till final path report of BMBX as there is suspicion of neoplastic process - d/w pt and his family member reg same on 10/26 # anemia - MACROcytosis # Low plt CT abdo done # anal fissures - seen by Sx/GI team At one time - pt had fever - ID saw pt. BP was slightly low in ER # h/o loss of wt - will follow - etiology unclear at this time 10/26 - D/w pathologist - 20% immature cells with left shift -final will come on ? friday 10/27 - d/w dr Douglass - the report in EMR mentions a lower blast% - will check with pathologist - allopurinol for now - Patient Problems (1) Neutropenia Onset Date: ~10/16/17 Current Visit: Yes Status: Acute Qualifiers: Neutropenia type: unspecified Qualified Code(s): D70.9 - Neutropenia, unspecified Subjective Date of service: 10/27/17 Principal diagnosis: leukopenia Interval history: feeling better no vomiting no abdo pain eating well s/p BMBx 10/22 - path final pending - 10/27 allopurinol started on 10/27 Objective - Constitutional Vitals: Last Vital Signs Temp 97.8 F 10/27/17 18:17 Pulse 67 10/27/17 18:17 Resp 18 10/27/17 18:17 BP 117/84 10/27/17 18:17 Pulse Ox 96 10/27/17 18:17 Pain Intensity (0-10): denies any pain General appearance: no acute distress Performance status: 0-fully active - EENT Eyes: PERRL ENT: clear oral mucosa Lymph node exam: negative cervical, negative supraclavicular - Neck Neck: supple - Respiratory Respiratory effort: Positive: normal Respiratory: bilateral: CTA - Cardiovascular Heart Sounds: Present: S1 & S2 Extremities: No edema - Gastrointestinal General gastrointestinal: Present: soft, non-tender Rectal Exam: deferred - Genitourinary Male genitourinary: Present: deferred - Integumentary Integumentary: warm - Musculoskeletal Musculoskeletal: strength equal bilaterally - Neurologic Neurologic: moves all extremities - Psychiatric Psychiatric: appropriate mood/affect - Allied health notes Allied health notes reviewed: nursing - Labs Lab Results: Laboratory Results - last 24 hr 10/27/17 10/27/17 06:34 06:34 WBC 1.9 L* RBC 1.97 L Hgb 7.8 L Hct 22.9 L MCV 116 H MCH 40 H MCHC 34 RDW 13.6 Plt Count 144 Add Manual Diff Complete Total Counted 100 Seg Neutrophils % Ranch Hand Supervisor Seg Neuts % (Manual) 28.0 L Band Neutrophils % 1.0 Lymphocytes % (Manual) 56.0 H Reactive Lymphs % (Man) 0 Monocytes % (Manual) 13.0 H Eosinophils % (Manual) 2.0 Basophils % (Manual) 0 Metamyelocytes % 0 Myelocytes % 0 Promyelocytes % 0 Blast Cells % 0 Nucleated RBC % Not Reportable Seg Neutrophils # Man 0.5 L Band Neutrophils # 0.0 Lymphocytes # (Manual) 1.1 L Abs React Lymphs (Man) 0.0 Monocytes # (Manual) 0.2 Eosinophils # (Manual) 0.0 Basophils # (Manual) 0.0 Metamyelocytes # 0.0 Myelocytes # 0.0 Promyelocytes # 0.0 Blast Cells # 0.0 WBC Morphology Not Reportable Hypersegmented Neuts Not Reportable Hyposegmented Neuts Not Reportable Hypogranular Neuts Not Reportable Smudge Cells Not Reportable Toxic Granulation Not Reportable Toxic Vacuolation Not Reportable Dohle Bodies Not Reportable Pelger-Huet Anomaly Not Reportable Raymundo Rods Not Reportable Platelet Estimate Not Reportable Clumped Platelets Not Reportable Plt Clumps, EDTA Not Reportable Large Platelets Not Reportable Giant Platelets Not Reportable Platelet Satelliting Not Reportable Plt Morphology Comment Not Reportable RBC Morphology Not Reportable Dimorphic RBCs Not Reportable Polychromasia Not Reportable Hypochromasia Not Reportable Poikilocytosis Not Reportable Anisocytosis 1+ Microcytosis Not Reportable Macrocytosis 1+ Spherocytes Not Reportable Pappenheimer Bodies Not Reportable Sickle Cells Not Reportable Target Cells Not Reportable Tear Drop Cells Not Reportable Ovalocytes Not Reportable Helmet Cells Not Reportable Whalen-[place] Bodies Not Reportable [place] Rings Not Reportable [place] Cells Not Reportable Bite Cells Not Reportable Crenated Cell Not Reportable Elliptocytes Not Reportable Acanthocytes (Spur) Not Reportable Rouleaux Not Reportable Hemoglobin C Crystals Not Reportable Schistocytes Not Reportable Malaria parasites Not Reportable Eduin Bodies Not Reportable Hem Pathologist Commnt No Sodium 142 Potassium 4.1 Chloride 104.9 Carbon Dioxide 28 Anion Gap 13 BUN 12 Creatinine 0.7 L Estimated GFR > 60 BUN/Creatinine Ratio 17 Glucose 94 Uric Acid 3.7 Calcium 8.8 Phosphorus 4.10 Magnesium 2.00 Total Bilirubin 0.30 AST 21 ALT 32 Alkaline Phosphatase 46 Total Protein 6.1 L Albumin 3.6 L Albumin/Globulin Ratio 1.4
[2017-10-28] MEDS: NITRO-BID 2% TP SCH ×2 (06:25→13:11)
[2017-10-28] MEDS: ZYLOPRIM PO SCH (09:28)
[2017-10-28] MEDS: SENOKOT PO SCH ×2 (09:29→20:24)
--- NOTE | 2017-10-28 13:01 | Progress Note ---
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 He denies bleeding from from any orifice. Hospitalist Physical - Constitutional Vitals: Temp Pulse Resp BP Pulse Ox 98.6 F 56 L 20 106/55 98 10/28/17 04:48 10/28/17 04:48 10/28/17 04:48 10/28/17 04:48 10/28/17 04:48 General appearance: Present: no acute distress, well-nourished - EENT Eyes: Present: PERRL, EOM intact ENT: hearing intact, clear oral mucosa - Neck Neck: Present: supple - Respiratory Respiratory effort: normal Respiratory: bilateral: CTA - Cardiovascular Rhythm: regular Heart Sounds: Present: S1 & S2 - Extremities Extremities: pulses symmetrical, No edema - Abdominal General gastrointestinal: soft, non-tender, normal bowel sounds - Neurologic Neurologic: CNII-XII intact Results - Labs CBC & Chem 7: 10/27/17 06:34 10/27/17 06:34 Labs: Laboratory Last Values WBC 1.9 K/mm3 (4.5-11.0) L* 10/27/17 06:34 RBC 1.97 M/mm3 (3.65-5.03) L 10/27/17 06:34 Hgb 7.8 gm/dl (11.8-15.2) L 10/27/17 06:34 Hct 22.9 % (35.5-45.6) L 10/27/17 06:34 MCV 116 fl (84-94) H 10/27/17 06:34 MCH 40 pg (28-32) H 10/27/17 06:34 MCHC 34 % (32-34) 10/27/17 06:34 RDW 13.6 % (13.2-15.2) 10/27/17 06:34 Plt Count 144 K/mm3 (140-440) 10/27/17 06:34 Add Manual Diff Complete 10/27/17 06:34 Total Counted 100 10/27/17 06:34 Seg Neutrophils % Head Start Coordinator 10/27/17 06:34 Seg Neuts % (Manual) 28.0 % (40.0-70.0) L 10/27/17 06:34 Band Neutrophils % 1.0 % 10/27/17 06:34 Lymphocytes % (Manual) 56.0 % (13.4-35.0) H 10/27/17 06:34 Reactive Lymphs % (Man) 0 % 10/27/17 06:34 Monocytes % (Manual) 13.0 % (0.0-7.3) H 10/27/17 06:34 Eosinophils % (Manual) 2.0 % (0.0-4.3) 10/27/17 06:34 Basophils % (Manual) 0 % (0.0-1.8) 10/27/17 06:34 Metamyelocytes % 0 % 10/27/17 06:34 Myelocytes % 0 % 10/27/17 06:34 Promyelocytes % 0 % 10/27/17 06:34 Blast Cells % 0 % 10/27/17 06:34 Nucleated RBC % Not Reportable 10/27/17 06:34 Seg Neutrophils # Man 0.5 K/mm3 (1.8-7.7) L 10/27/17 06:34 Band Neutrophils # 0.0 K/mm3 10/27/17 06:34 Lymphocytes # (Manual) 1.1 K/mm3 (1.2-5.4) L 10/27/17 06:34 Abs React Lymphs (Man) 0.0 K/mm3 10/27/17 06:34 Monocytes # (Manual) 0.2 K/mm3 (0.0-0.8) 10/27/17 06:34 Eosinophils # (Manual) 0.0 K/mm3 (0.0-0.4) 10/27/17 06:34 Basophils # (Manual) 0.0 K/mm3 (0.0-0.1) 10/27/17 06:34 Metamyelocytes # 0.0 K/mm3 10/27/17 06:34 Myelocytes # 0.0 K/mm3 10/27/17 06:34 Promyelocytes # 0.0 K/mm3 10/27/17 06:34 Blast Cells # 0.0 K/mm3 10/27/17 06:34 Pathologist Review 10/16/17 04:07 WBC Morphology Not Reportable 10/27/17 06:34 Hypersegmented Neuts Not Reportable 10/27/17 06:34 Hyposegmented Neuts Not Reportable 10/27/17 06:34 Hypogranular Neuts Not Reportable 10/27/17 06:34 Smudge Cells Not Reportable 10/27/17 06:34 Toxic Granulation Not Reportable 10/27/17 06:34 Toxic Vacuolation Not Reportable 10/27/17 06:34 Dohle Bodies Not Reportable 10/27/17 06:34 Pelger-Huet Anomaly Not Reportable 10/27/17 06:34 Raymundo Rods Not Reportable 10/27/17 06:34 Platelet Estimate Not Reportable 10/27/17 06:34 Clumped Platelets Not Reportable 10/27/17 06:34 Plt Clumps, EDTA Not Reportable 10/27/17 06:34 Large Platelets Not Reportable 10/27/17 06:34 Giant Platelets Not Reportable 10/27/17 06:34 Platelet Satelliting Not Reportable 10/27/17 06:34 Plt Morphology Comment Not Reportable 10/27/17 06:34 RBC Morphology Not Reportable 10/27/17 06:34 Dimorphic RBCs Not Reportable 10/27/17 06:34 Polychromasia Not Reportable 10/27/17 06:34 Hypochromasia Not Reportable 10/27/17 06:34 Poikilocytosis Not Reportable 10/27/17 06:34 Anisocytosis 1+ 10/27/17 06:34 Microcytosis Not Reportable 10/27/17 06:34 Macrocytosis 1+ 10/27/17 06:34 Spherocytes Not Reportable 10/27/17 06:34 Pappenheimer Bodies Not Reportable 10/27/17 06:34 Sickle Cells Not Reportable 10/27/17 06:34 Target Cells Not Reportable 10/27/17 06:34 Tear Drop Cells Not Reportable 10/27/17 06:34 Ovalocytes Not Reportable 10/27/17 06:34 Helmet Cells Not Reportable 10/27/17 06:34 Whalen-Abbott Bodies Not Reportable 10/27/17 06:34 [place] Rings Not Reportable 10/27/17 06:34 Gladys Cells Not Reportable 10/27/17 06:34 Bite Cells Not Reportable 10/27/17 06:34 Crenated Cell Not Reportable 10/27/17 06:34 Elliptocytes Not Reportable 10/27/17 06:34 Acanthocytes (Spur) Not Reportable 10/27/17 06:34 Rouleaux Not Reportable 10/27/17 06:34 Hemoglobin C Crystals Not Reportable 10/27/17 06:34 Schistocytes Not Reportable 10/27/17 06:34 Malaria parasites Not Reportable 10/27/17 06:34 Eduin Bodies Not Reportable 10/27/17 06:34 Hem Pathologist Commnt No 10/27/17 06:34 PT 13.9 Sec. (12.2-14.9) 10/16/17 07:18 INR 1.02 (0.87-1.13) 10/16/17 07:18 APTT 35.5 Sec. (24.2-36.6) 10/16/17 07:18 Sodium 142 mmol/L (137-145) 10/27/17 06:34 Potassium 4.1 mmol/L (3.6-5.0) 10/27/17 06:34 Chloride 104.9 mmol/L (98-107) 10/27/17 06:34 Carbon Dioxide 28 mmol/L (22-30) 10/27/17 06:34 Anion Gap 13 mmol/L 10/27/17 06:34 BUN 12 mg/dL (9-20) 10/27/17 06:34 Creatinine 0.7 mg/dL (0.8-1.5) L 10/27/17 06:34 Estimated GFR > 60 ml/min 10/27/17 06:34 BUN/Creatinine Ratio 17 % 10/27/17 06:34 Glucose 94 mg/dL (75-100) 10/27/17 06:34 POC Glucose 121 (70-105) H 10/17/17 11:31 Lactic Acid 0.70 mmol/L (0.7-2.0) 10/16/17 11:34 Uric Acid 3.7 mg/dL (3.5-7.6) 10/27/17 06:34 Calcium 8.8 mg/dL (8.4-10.2) 10/27/17 06:34 Phosphorus 4.10 mg/dL (2.5-4.5) 10/27/17 06:34 Magnesium 2.00 mg/dL (1.7-2.3) 10/27/17 06:34 Total Bilirubin 0.30 mg/dL (0.1-1.2) 10/27/17 06:34 AST 21 units/L (5-40) 10/27/17 06:34 ALT 32 units/L (7-56) 10/27/17 06:34 Alkaline Phosphatase 46 units/L (35-129) 10/27/17 06:34 Lactate Dehydrogenase 243 units/L (91-180) H 10/16/17 07:18 Troponin T < 0.010 ng/mL (0.00-0.029) 10/16/17 07:18 C-Reactive Protein 2.50 mg/dL (0.00-1.30) H 10/16/17 11:34 Total Protein 6.1 g/dL (6.3-8.2) L 10/27/17 06:34 Albumin 3.6 g/dL (3.9-5) L 10/27/17 06:34 Albumin/Globulin Ratio 1.4 % 10/27/17 06:34 Vitamin B12 360.5 pg/mL (211-911) 10/16/17 07:18 Folate 7.41 ng/mL (7.3-26.0) 10/16/17 07:18 TSH 2.180 mlU/mL (0.270-4.200) 10/16/17 07:18 Urine Color [place] (Yellow) 10/16/17 06:20 Urine Turbidity Slightly-cloudy (Clear) 10/16/17 06:20 Urine pH 6.0 (5.0-7.0) 10/16/17 06:20 Ur Specific [place] 1.026 (1.003-1.030) 10/16/17 06:20 Urine Protein 100 mg/dl mg/dL (Negative) 10/16/17 06:20 Urine Glucose (UA) Neg mg/dL (Negative) 09/04/18 06:20 Urine Ketones Neg mg/dL (Negative) 10/16/17 06:20 Urine Blood Neg (Negative) 10/16/17 06:20 Urine Nitrite Neg (Negative) 10/16/17 06:20 Urine Bilirubin Neg (Negative) 10/16/17 06:20 Urine Urobilinogen 4.0 mg/dL (<2.0) 10/16/17 06:20 Ur Leukocyte Esterase Neg (Negative) 10/16/17 06:20 Urine WBC (Auto) 16.0 /HPF (0.0-6.0) H 10/16/17 06:20 Urine RBC (Auto) 8.0 /HPF (0.0-6.0) 10/16/17 06:20 U Epithel Cells (Auto) 1.0 /HPF (0-13.0) 10/16/17 06:20 Urine Mucus 3+ /HPF 10/16/17 06:20 RPR Nonreactive (Nonreactive) 10/16/17 07:18 CMV DNA PCR log asbestos microscopist/mL See scanned report 10/16/17 11:34 EBV Capsid Ag IgG, IgM <36.00 U/mL (<36.00) 10/16/17 11:34 EBV Capsid Ag IgG Titer 71.00 U/mL (<18.00) H 10/16/17 11:34 EBV Nuclear Ag IgG Indx 292.00 U/mL (<18.00) H 10/16/17 11:34 EBV Interpretation Past 10/16/17 11:34 Hepatitis A IgM Ab Non-reactive (NonReactive) 10/16/17 07:18 Hep Bs Antigen Non-reactive (Negative) 10/16/17 07:18 Hep B Core IgM Ab Non-reactive (NonReactive) 10/16/17 07:18 Hepatitis C Antibody Nonreactive (NonReactive) 10/16/17 07:18 HSV I Specific Ab 35.00 Index (<0.90) H 10/19/17 05:45 HIV-1 RNA PCR copies/ml <20 Copies/mL 10/16/17 11:34 HIV-1 RNA (PCR) log <1.30 Log cps/mL 10/16/17 11:34 HIV 1&2 Antibody Rapid Non react (Non React) 10/16/17 07:18 HIV P24 Antigen Non react (Non React) 10/16/17 07:18 Schistocytes Smear None seen 10/16/17 07:18 Flow Intrp 16+ Markers Scanned into med rec 10/22/17 13:26 Flow Cytometry Interp Scanned into [facility] rec 10/22/17 13:26 Miscellaneous Test Flexitest 1 H 10/22/17 06:01 Blood Type O POSITIVE 10/16/17 07:18 Antibody Screen Negative 10/16/17 07:18
[2017-10-29] MEDS: NITRO-BID 2% TP SCH ×2 (06:05→14:55)
--- NOTE | 2017-10-29 08:09 | Hem/Onc Progress Note ---
Assessment and Plan # Leukopenia - Neutropenia - s/p BMBx 10/22 - will await for results Flowcytometry - Blasts present. PT will await till final path report of BMBX as there is suspicion of neoplastic process - d/w pt and his family member reg same on 10/26 started allopurinol 10/27 # anemia - MACROcytosis # Low plt CT abdo done # anal fissures - seen by Sx/GI team At one time - pt had fever - ID saw pt. BP was slightly low in ER # h/o loss of wt - will follow - etiology unclear at this time 10/26 - D/w pathologist - 20% immature cells with left shift -final will come on ? friday 10/27 - d/w dr Douglass - the report in EMR mentions a lower blast% - will check with pathologist - ct allopurinol for now - Patient Problems (1) Neutropenia Onset Date: ~10/16/17 Current Visit: Yes Status: Acute Qualifiers: Neutropenia type: unspecified Qualified Code(s): D70.9 - Neutropenia, unspecified Subjective Date of service: 10/29/17 Principal diagnosis: low wbc Interval history: feeling better no vomiting no abdo pain eating well s/p BMBx 10/22 - path final pending - 10/29 allopurinol started on 10/27 Flow: one report mentions 0.6% blasts - verbal info was of a higher blasts Objective - Constitutional Vitals: Last Vital Signs Temp 98.4 F 10/29/17 04:02 Pulse 87 10/29/17 04:02 Resp 18 10/29/17 04:02 BP 115/44 10/29/17 04:02 Pulse Ox 97 10/29/17 04:02 Pain Intensity (0-10): denies any pain General appearance: no acute distress Performance status: 0-fully active - EENT Eyes: PERRL ENT: clear oral mucosa Lymph node exam: negative cervical, negative supraclavicular - Neck Neck: supple - Respiratory Respiratory effort: Positive: normal Respiratory: bilateral: CTA - Cardiovascular Heart Sounds: Present: S1 & S2 Extremities: No edema - Gastrointestinal General gastrointestinal: Present: soft, non-tender Rectal Exam: deferred - Genitourinary Male genitourinary: Present: deferred - Integumentary Integumentary: warm - Musculoskeletal Musculoskeletal: strength equal bilaterally - Neurologic Neurologic: moves all extremities - Psychiatric Psychiatric: appropriate mood/affect - Allied health notes Allied health notes reviewed: nursing (d/w RN)
--- NOTE | 2017-10-29 09:40 | Event Note ---
Date: 10/29/17 path called at 9.30 AM MDS with 11% - excess blasts peripheral blood had 0.6% blasts but BMB had 20% blasts - however final report mentions 11% blasts and MDS. Pt would need eval for treatment options He will come to clinic for same. At this time he is asymptomatic
[2017-10-29] MEDS: SENOKOT PO SCH (09:58)
[2017-10-29] MEDS: ZYLOPRIM PO SCH (10:00)
--- NOTE | 2017-10-29 12:08 | Progress Note ---
Assessment and Plan Assessment: 1) SIRS: Afebrile, Neutropenic, wbc 1.9, likely due to MDS EBV IgM- Neg UC- less than 10,000 K BC- ngtd -CXR neg -CT abd neg -HIV neg -viral hep neg -CRP=2.4 -MDS with 11% - excess blasts, Peripheral blood had 0.6% blasts but BMB had 20% blasts. Final report mentions 11% blasts and MDS. Patient is asymptomatic. 3) ? 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 No abscess seen on prostate 4) Weight loss? 5) HSV1 and HSV2 positive serology Plan: f/u with Hem/Oncology for treatment options No need for further systemic abx ID will sign off [facility] M: [phone] O:[phone] Subjective Date of service: 10/29/17 Principal diagnosis: low wbc Interval history: Patient was sitting on the side of the bed, fully dressed. Patient stated that he was waiting on the results of his test. Current Antimmicrobials Previous Antimicrobials Cefriaxone Flagyl Objective - Exam Narrative Exam: General appearance: Alert in NAD, conversant Eyes: anicteric sclerae, moist conjunctivae; no lid-lag; PERRLA HENT: Atraumatic; oropharynx clear with moist mucous membranes and no mucosal ulcerations/no oral thrush; normal hard and soft palate. Normal external ears. Neck: Trachea midline; supple, no thyromegaly or lymphadenopathy Lungs: CTA, with normal respiratory effort and no intercostal retractions CV: RRR, no murmurs Abdomen: Soft, non-tender; no masses or hepatosplenomegaly Extremities: No peripheral edema or extremity lymphadenopathy Skin: Superficial nodules at the johnson area. [place] Cervical lymph node palpable. Psych: Appropriate affect, alert and oriented to person, place and time. Neuro: alert and oriented x 3. Moving all extermities - Constitutional Vitals: Vital Signs Temp Pulse Resp BP Pulse Ox 98.4 F 87 18 115/44 97 10/29/17 04:02 10/29/17 04:02 10/29/17 04:02 10/29/17 04:02 10/29/17 04:02 Temperature -Last 24 Hours Temperature 98.4 F Temperature 99.1 F - Labs CBC & Chem 7: 10/27/17 06:34 10/27/17 06:34
[2017-10-29 13:29] VITALS: BP 108/54
--- NOTE | 2017-10-29 16:32 | Discharge Summary ---
Providers - Providers Date of Admission: 10/16/17 07:45 Date of discharge: 10/29/17 Attending physician: MADHAVI MCCARTHY 10/16/17 06:49 Consult to Physician [CONS] Urgent Comment: NOTIFIED 654 Consulting Provider: ANA ROSA HERNADEZ Physician Instructions: Reason For Exam: pancytopenia 10/16/17 07:48 Consult to Physician [CONS] Routine Comment: DR BEST SAW PT IN ER [id number] Consulting Provider: BESSIE GOMES Physician Instructions: Reason For Exam: SIRS, WITH PANCYTOPENIA 10/17/17 15:06 Consult to Physician [CONS] Routine Comment: Consulting Provider: RUSTAM ISABEL Physician Instructions: Reason For Exam: rectal pain ?abscess 10/17/17 16:29 Consult to Physician [CONS] Urgent Comment: Consulting Provider: ROHINI SANCHEZ Physician Instructions: consult surgery Reason For Exam: possible rectal abscess Primary care physician: RN RADIATION Hospitalization Condition: Good Hospital course: Discharge diagnosis: Pancytopenia -Due to MDS, patient asymptomatic -EBV IgM- neg, viral hep -neg, HIV neg - S/P bone marrow biopsy, result showed hypocellular bone marrow with 11% blast cells - 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 - Continue neutropenic precautions - Heme/onco following, will follow outpt - started on allopurinol SIRS without acute infection -UC, BC, CXR, CT abd neg - ID consulted, no abx recommended on discharge Rectal pain --s/p EUA which showed large posterior anal fissure and b/l pudental nerve block - cont NG cream Disposition: Home with outpt f/u with Heme/onco Hospitalist Physical General appearance: Present: no acute distress, well-nourished - EENT Eyes: Present: PERRL ENT: hearing intact, clear oral mucosa - Neck Neck: Present: supple - Respiratory Respiratory effort: normal Respiratory: bilateral: CTA - Cardiovascular Rhythm: regular Heart Sounds: Present: S1 & S2 - Extremities Extremities: No edema - Abdominal General gastrointestinal: soft, non-tender, normal bowel sounds - Neurologic Neurologic: CNII-XII intact Disposition: TO HOME OR SELFCARE Time spent for discharge: 32 minutes Core Measure Documentation - Palliative Care Palliative Care/ Comfort Measures: Not Applicable - Core Measures Any of the following diagnoses?: none Exam - Constitutional Vitals: Temp Pulse Resp BP Pulse Ox 98.8 F 83 15 108/54 99 10/29/17 13:27 10/29/17 13:27 10/29/17 13:27 10/29/17 13:27 10/29/17 13:27 Plan Activity: advance as tolerated Weight Bearing Status: Weight Bear as Tolerated Diet: regular Additional Instructions: f/u with Dr Hernadez in one week Follow up with: PRIMARY CARE, [Primary Care Provider] - 3-5 Days Prescriptions: Allopurinol [Zyloprim] 100 mg PO QDAY #30 tablet
== END 2017-10-29 18:15 | disposition home or self-care (01) | DRG 393 ==
LOC: ED 02:19 → CC1 07:45 → IMCU 11:49 → 3A 17:51
PROVIDERS: ADMIT Internal Medicine; ATTEND Internal Medicine
PROC: 3E0T3BZ Introduction of Anesthetic Agent into Peripheral Nerves and Plexi, Percutaneous Approach (ICD-10-PCS; principal; 2017-10-18)
PROC: 0DJD8ZZ Inspection of Lower Intestinal Tract, Via Natural or Artificial Opening Endoscopic (ICD-10-PCS; 2017-10-18)
PROC: 07DR3ZX Extraction of Iliac Bone Marrow, Percutaneous Approach, Diagnostic (ICD-10-PCS; 2017-10-23)
DX: K60.2 Anal fissure, unspecified (principal); A48.3 Toxic shock syndrome; N30.00 Acute cystitis without hematuria; R65.10 Systemic inflammatory response syndrome (SIRS) of non-infectious origin without acute organ dysfunction; D61.818 Other pancytopenia; D70.9 Neutropenia, unspecified; D46.9 Myelodysplastic syndrome, unspecified; D72.819 Decreased white blood cell count, unspecified; D64.9 Anemia, unspecified; D75.89 Other specified diseases of blood and blood-forming organs; I95.9 Hypotension, unspecified; K52.9 Noninfective gastroenteritis and colitis, unspecified; F17.200 Nicotine dependence, unspecified, uncomplicated; Z71.6 Tobacco abuse counseling
CPT/HCPCS: 36415; 38222; 70450; 71046; 74176; 74177; 80048; 80053; 80074; 81001; 82140; 82607; 82747; 82962; 83605; 83615; 83735; 84100; 84443; 84484; 84550; 85007; 85025; 85027; 85097; 85610; 85730; 86140; 86592; 86665; 86695; 86850; 86900; 86901; 87040; 87086; 87207; 87497; 87536; 87806; 88161; 88184; 88185; 88305; 88311; 88313; 93005; 93010; 96365; 96367; 96374; 96375; J0330; J0692; J0696; J1100; J1170; J1200; J1885; J2250; J2270; J2405; J2704; J2710; J3010; J7030; J7040; J7120; Q9967

== ENCOUNTER 2018-05-10 17:42 | Emergency (ER) | payer SELFPAY ==
[2018-05-10] MEDS ORDERED: MORPHINE IV ONE (18:24)
[2018-05-10] MEDS ORDERED: NACL 0.9% 1000 ML 1,000 ML IV ONE (18:53)
--- NOTE | 2018-05-10 18:57 | Emergency Department Report ---
HPI - General Chief Complaint: Rectal Pain Time Seen by Provider: 05/10/18 18:22 - HPI HPI: 43-year-old male presents to the emergency department with a complaint of a 3 day history of rectal pain that worsened after having a bowel movement about 30 minutes prior to arrival. The patient has a history of leukemia for which he says he just finished chemotherapy last week. He went to see his primary care physician yesterday and was given Tylenol 3 which has not helped to control his pain. He denies any abdominal pain, rectal bleeding, fever, nausea or vomiting. ED Past Medical Hx - Past Medical History Hx of Cancer: Yes (leukemia) Hx Asthma: No Additional medical history: leukemia, dx'd 10/2017 - Surgical History Additional Surgical History: fluid drained from lungs, ?yr - Social History Smoking Status: Former Smoker Substance Use Type: None - Medications Home Medications: Home Medications Medication Instructions Recorded Confirmed Last Taken Type Allopurinol [Zyloprim] 100 mg PO QDAY #30 tablet 10/29/17 Unknown Rx Amoxicillin/Potassium Clav 1 each PO BID 7 Days #14 tablet 01/10/18 Unknown Rx [Augmentin 875-125 Tablet] Ondansetron [Zofran Odt] 4 mg PO Q8HR PRN #14 tab.rapdis 01/23/18 Unknown Rx ED Review of Systems ROS: Stated complaint: RECTAL PAIN Other details as noted in HPI Comment: All other systems reviewed and negative Constitutional: denies: chills, fever Eyes: denies: eye pain, vision change ENT: denies: ear pain, throat pain Respiratory: denies: cough, shortness of breath Cardiovascular: denies: chest pain, palpitations Gastrointestinal: other (rectal pain). denies: abdominal pain Genitourinary: denies: dysuria, discharge Musculoskeletal: denies: back pain, arthralgia Skin: denies: rash, lesions Neurological: denies: headache, weakness Physical Exam - Physical Exam Vital Signs: Vital Signs 05/10/18 18:38 Temperature 97.7 F Pulse Rate 74 Respiratory 16 Rate Blood Pressure 137/75 [Left] O2 Sat by Pulse 99 Oximetry Physical Exam: GENERAL: The patient is well-developed well-nourished. HEENT: Normocephalic. Atraumatic. Patient has moist mucous membranes. EYES: Extraocular motions are intact. NECK: Supple. Trachea is midline. CHEST/LUNGS: Clear to auscultation. There is no respiratory distress noted. HEART/CARDIOVASCULAR: Regular. There is no tachycardia. There is no obvious murmur. ABDOMEN: Abdomen is soft, nontender. Patient has normal bowel sounds. There is no abdominal distention. SKIN: Skin is warm and dry. NEURO: The patient is awake, alert, and oriented. The patient is cooperative. The patient has no focal neurologic deficits. The patient has normal speech. MUSCULOSKELETAL: There is no tenderness or deformity. There is no evidence of acute injury. RECTAL: There is a small nonthrombosed hemorrhoid at the 6 o'clock position. No obvious abscess. Slightly tender to palpation. ED Course Vital Signs 05/10/18 18:38 Temperature 97.7 F Pulse Rate 74 Respiratory 16 Rate Blood Pressure 137/75 [Left] O2 Sat by Pulse 99 Oximetry ED Medical Decision Making - Lab Data Result diagrams: 05/10/18 20:26 05/10/18 20:26 - Radiology Data Radiology results: report reviewed PROCEDURE: CT PELVIS W CON TECHNIQUE: Computerized axial tomography of the pelvis was performed following the IV injection of iodinated nonionic contrast. CT DOSE LENGTH PRODUCT: 551.9 mGycm HISTORY: severe rectal pain COMPARISONS: None . FINDINGS: Imaged small and large intestine: Normal . Genitourinary system: Normal . Lymph nodes/mesentery: Normal . Pelvic masses: None . Intraperitoneal fluid: None . Bony pelvis is intact. There is no superficial mass or abscess. IMPRESSION: Normal Examination . This document is electronically signed by Shama Stark MD., May 10 2018 11:13:15 PM ET Transcribed By: CO Dictated By: SHAMA STARK MD Electronically Authenticated By: SHAMA STARK MD Signed Date/Time: 05/10/18 4410 - Medical Decision Making This patient presents to the emergency department with a 3 day history of rectal pain that worsened prior to arrival after a bowel movement. Some labs were done that show moderate neutropenia with a white count of 1.6 but the patient was arguing with this number and has recently undergone chemotherapy for his leukemia. The rest of labs are unremarkable. Vital signs stable including being afebrile. A CT scan of the pelvis was done with IV contrast that did not show any acute process including no perirectal or rectal abscess. Patient was given 2 doses of pain medication with good improvement in his discomfort. He has been instructed to follow-up with his primary care physician and oncologist and to return to the emergency Department with any worsening of his symptoms or any acute distress. - Differential Diagnosis hemorrhoid, anal fissure, perirectal abscess Critical Care Time: No Critical care attestation.: If time is entered above; I have spent that time in minutes in the direct care of this critically ill patient, excluding procedure time. ED Disposition Clinical Impression: History of leukemia, Rectal pain Neutropenia Qualifiers: Neutropenia type: unspecified Qualified Code(s): D70.9 - Neutropenia, unspecified Disposition: DC-01 TO HOME OR SELFCARE Is pt being admited?: No Condition: Stable Additional Instructions: Please follow-up with your primary care physician and oncologist. Return to the emergency Department with any worsening of her symptoms or any acute distress. Referrals: Primary Care Provider, Your [Other] - 3-5 Days Oncologist, Your [Other] - 3-5 Days Time of Disposition: 23:21
[2018-05-10] MEDS ORDERED: DILAUDID IV ONE (19:35)
[2018-05-10 20:42] LABS: Hematocrit 23.5 % (35.5-45.6); Hemoglobin 8.2 gm/dl (11.8-15.2); Mean Corpuscular HGB Conc 35 % (32-34); Mean Corpuscular Hemoglobin 41 pg (28-32); Red Blood Count 2.02 M/mm3 (3.65-5.03)
[2018-05-10 20:45] LABS: Mean Corpuscular Volume 116 fl (84-94); Red Cell Distribution Width 22.6 % (13.2-15.2)
[2018-05-10 20:53] LABS: BUN/Creatinine Ratio 7; Blood Urea Nitrogen 5 mg/dL (9-20); Calcium 8.4 mg/dL (8.4-10.2); Hemolysis Index 1
[2018-05-10 20:57] VITALS: BP 135/79
[2018-05-10 21:17] LABS: Total Cells Counted 100
[2018-05-10 21:18] LABS: Basophils % (Manual) 0 % (0.0-1.8)
[2018-05-10 21:19] LABS: Anisocytosis 2+; Macrocytosis 1+; Platelet Estimate Appears Decreased
[2018-05-10 21:48] LABS: Platelet Count 53 K/mm3 (140-440)
--- NOTE | 2018-05-10 23:14 | Cat Scan Report ---
PROCEDURE: CT PELVIS W CON TECHNIQUE: Computerized axial tomography of the pelvis was performed following the IV injection of i odinated nonionic contrast. CT DOSE LENGTH PRODUCT: 551.9 mGycm HISTORY: severe rectal pain COMPARISONS: None . FINDINGS: Imaged small and large intestine: Normal . Genitourinary system: Normal . Lymph nodes/mesentery: Normal . Pelvic masses: None . Intraperitoneal fluid: None . Bony pelvis is intact. There is no superficial mass or abscess. IMPRESSION: Normal Examination . This document is electronically signed by Ranulfo Oropeza MD., May 10 2018 11:13:15 PM ET
== END 2018-05-10 23:57 | disposition home or self-care (01) ==
LOC: ED 17:42
DX: R10.2 Pelvic and perineal pain (principal); D70.9 Neutropenia, unspecified
CPT/HCPCS: 36415; 72193; 80048; 85007; 85025; 96374; 96375; 99284; J1170; J2270; J7030; Q9967

== ENCOUNTER 2018-11-08 18:51 | Emergency (ER) | payer MEDICAID ==
[2018-11-08 19:40] VITALS: BP 130/80
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
== END 2018-11-08 20:47 | disposition home or self-care (01) ==
LOC: ED 18:51
DX: S96.912A Strain of unspecified muscle and tendon at ankle and foot level, left foot, initial encounter (principal); M54.9 Dorsalgia, unspecified; M54.2 Cervicalgia; V49.49XA Driver injured in collision with other motor vehicles in traffic accident, initial encounter; Y93.89 Activity, other specified; Y92.89 Other specified places as the place of occurrence of the external cause; Y99.8 Other external cause status

== ENCOUNTER 2020-01-22 02:54 | Emergency (ER) | payer SELFPAY ==
[2020-01-22] MEDS ORDERED: ONDANSETRON 4 MG ODT TAB ONE (03:04)
[2020-01-22] MEDS ORDERED: ONDANSETRON 4 MG ODT TAB PO ONE (03:08)
[2020-01-22 03:55] LABS: Basophils % (Auto) 0.3 % (0.0-1.8); Eosinophils # (Auto) 0.1 K/mm3 (0.0-0.4); Eosinophils % (Auto) 2.7 % (0.0-4.3); Hematocrit 39.8 % (35.5-45.6); Hemoglobin 13.5 gm/dl (11.8-15.2); Lymphocytes # (Auto) 1.7 K/mm3 (1.2-5.4); Lymphocytes % (Auto) 45.8 % (13.4-35.0); Mean Corpuscular HGB Conc 34 % (32-34); Mean Corpuscular Volume 95 fl (84-94); Monocytes # (Auto) 0.4 K/mm3 (0.0-0.8); Monocytes % (Auto) 12.3 % (0.0-7.3); Platelet Count 198 K/mm3 (140-440); Red Blood Count 4.17 M/mm3 (3.65-5.03)
--- NOTE | 2020-01-22 05:45 | Cat Scan Report ---
CT head/brain wo con INDICATION: Patient complains of a headache x 1 day. TECHNIQUE: Routine CT head without contrast. All CT scans at this location are performed using CT dos e reduction for ALARA by means of automated exposure control. COMPARISON: None. FINDINGS: BRAIN / INTRACRANIAL CONTENTS: No acute hemorrhage, mass effect, midline shift, or hydrocephalus. No appreciable acute large territorial or lacunar infarct. No chronic infarct or focal atrophy. Normal b rain volume and ventricular/sulcal size for age. ORBITS: No significant abnormality of visualized orbits. SINUSES / MASTOIDS: No significant abnormality of visualized sinuses and mastoid air cells. ADDITIONAL FINDINGS: None. IMPRESSION: 1. No acute intracranial abnormality on noncontrast CT of the brain. Signer Name: Aileen Holland MD Signed: 01/22/2020 4:09 AM Workstation Name: [id number]
[2020-01-22 05:57] LABS: BUN/Creatinine Ratio 10; Blood Urea Nitrogen 9 mg/dL (9-20); Calcium 9.5 mg/dL (8.4-10.2); Hemolysis Index 9
--- NOTE | 2020-01-22 09:15 | Emergency Department Report ---
ED Headache HPI - General Chief Complaint: Headache Stated Complaint: EMESIS/HEADACHE/CANCER PT Time Seen by Provider: 01/22/20 09:10 Source: patient - History of Present Illness Initial Comments: 45-year-old male, history of leukemia now in remission, presents to ED with complaint of headache. Patient reports onset of headache last night. States pain was located in the back of his head. He reports one episode of emesis associated with it. Patient denies any fever, neck pain, cough, abdominal pain, known exposure to anyone who was tested positive for COVID-19. Not take anything for the pain prior to ED arrival. He denies any aggravating or alleviating factors. Patient has been here in the ER for quite some time now states the pain is currently gone. He reports he is feeling much better. Patient denies any head injury or history of chronic headaches. Timing/Duration: other (Last night) Quality: moderate Recent Head Trauma: no recent headache/trauma Associated Symptoms: nausea/vomiting. denies: fever/chills, nasal congestion, stiff neck, vision changes Allergies/Adverse Reactions: Allergies No Known Allergies Allergy (Verified 10/16/17 06:35) Home Medications: Ambulatory Orders allopurinoL [Zyloprim] 100 mg PO QDAY #30 tablet 10/29/17 Amoxicillin/Potassium Clav [Augmentin 875-125 Tablet] 1 each PO BID 7 Days #14 tablet 01/10/18 Ondansetron [Zofran Odt] 4 mg PO Q8HR PRN #14 tab.rapdis 01/23/18 methOCARBAMOL [Robaxin TAB] 500 mg PO BID PRN #15 tab 11/08/18 Butalb/Acetamin/Caff 50-325-40 [Fioricet] 1 tab PO Q6HR PRN #10 tab 01/22/20 Naproxen [Naprosyn] 500 mg PO BID #20 tablet 01/22/20 ED Review of Systems ROS: Stated complaint: EMESIS/HEADACHE/CANCER PT Other details as noted in HPI Comment: All other systems reviewed and negative Constitutional: denies: chills, fever ENT: denies: congestion Respiratory: denies: cough, shortness of breath Cardiovascular: denies: chest pain Gastrointestinal: nausea, vomiting. denies: abdominal pain Neurological: headache. denies: weakness, numbness ED Past Medical Hx - Past Medical History Previous Medical History?: Yes Hx of Cancer: Yes (Leukemia) Hx Asthma: No Additional medical history: leukemia, dx'd 10/2017, - Surgical History Past Surgical History?: Yes Additional Surgical History: fluid drained from lungs, Bone Marrow transplant - Social History Smoking Status: Never Smoker Substance Use Type: None - Medications Home Medications: Home Medications Medication Instructions Recorded Confirmed Last Taken Type allopurinoL [Zyloprim] 100 mg PO QDAY #30 tablet 10/29/17 Unknown Rx Amoxicillin/Potassium Clav 1 each PO BID 7 Days #14 tablet 01/10/18 Unknown Rx [Augmentin 875-125 Tablet] Ondansetron [Zofran Odt] 4 mg PO Q8HR PRN #14 tab.rapdis 01/23/18 Unknown Rx methOCARBAMOL [Robaxin TAB] 500 mg PO BID PRN #15 tab 11/08/18 Unknown Rx Butalb/Acetamin/Caff 50-325-40 1 tab PO Q6HR PRN #10 tab 01/22/20 Unknown Rx [Fioricet] Naproxen [Naprosyn] 500 mg PO BID #20 tablet 01/22/20 Unknown Rx ED Physical Exam - General Limitations: No Limitations General appearance: alert, in no apparent distress - Head Head exam: Present: atraumatic, normocephalic - Eye Eye exam: Present: normal appearance, PERRL, EOMI - ENT ENT exam: Present: mucous membranes moist - Neck Neck exam: Present: normal inspection, full ROM. Absent: tenderness, meningismus - Respiratory Respiratory exam: Present: normal lung sounds bilaterally. Absent: respiratory distress - Cardiovascular Cardiovascular Exam: Present: regular rate, normal rhythm - GI/Abdominal GI/Abdominal exam: Present: soft. Absent: distended, tenderness - Extremities Exam Extremities exam: Present: normal inspection - Neurological Exam Neurological exam: Present: alert, oriented X3, CN II-XII intact. Absent: motor sensory deficit - Psychiatric Psychiatric exam: Present: normal affect, normal mood - Skin Skin exam: Present: warm, dry, intact, normal color ED Course Vital Signs 01/22/20 01/22/20 03:00 09:37 Temperature 97.3 F L Pulse Rate 65 77 Respiratory 20 14 Rate Blood Pressure 139/87 Blood Pressure 127/87 [Right] O2 Sat by Pulse 97 98 Oximetry ED Medical Decision Making - Lab Data Result diagrams: 01/22/20 03:23 01/22/20 03:23 - Radiology Data Radiology results: report reviewed, image reviewed - Medical Decision Making 45-year-old male presents to ED with headache. Patient states headache is now resolved. No neuro deficits on exam. CT head negative for any acute findings. Vitals are stable. Patient feels comfortable with discharge home. Prescriptions given. Outpatient follow-up advised, return precautions given. - Differential Diagnosis Tension headache, migraine headache, intracranial abnormality, malignancy Critical care attestation.: If time is entered above; I have spent that time in minutes in the direct care of this critically ill patient, excluding procedure time. ED Disposition Clinical Impression: Acute headache Disposition: TO HOME OR SELFCARE Is pt being admited?: No Condition: Stable Instructions: General Headache Without Cause Prescriptions: Butalb/Acetamin/Caff 50-325-40 [Fioricet] 1 tab PO Q6HR PRN #10 tab PRN Reason: Headache Naproxen [Naprosyn] 500 mg PO BID #20 tablet Referrals: [facility] MD CHAN [Primary Care Provider] - 3-5 Days INEZ VAZ MD [Referring] - as needed PRIMARY CAREMD [Referring] - 3-5 Days Time of Disposition: 09:15
[2020-01-22 09:39] VITALS: BP 127/87
== END 2020-01-22 10:06 | disposition home or self-care (01) ==
LOC: ED 02:54
DX: R51.9 Headache, unspecified (principal); Z79.899 Other long term (current) drug therapy
CPT/HCPCS: 36415; 70450; 80048; 85025; Q0162

== ENCOUNTER 2020-10-18 23:07 | Emergency (ER) | payer SELFPAY ==
[2020-10-19 00:31] VITALS: BP 113/69
[2020-10-19] MEDS ORDERED: ACETAMINOPHEN 500 MG TAB PO ONE ×2 (00:54→03:16)
[2020-10-19] MEDS ORDERED: LIDOCAINE VISCOUS 2% 15 ML ORAL LIQD PO ONE ×2 (00:54→03:16)
--- NOTE | 2020-10-19 00:56 | Event Note ---
ED Screening Note Date of service: 10/19/20 Time: 00:55 ED Screening Note: Patient is a 45-year-old -[place] male with a history of leukemia and s/p bone marrow transplant 2 years ago presents to the ED with complaint of acute onset persistent diffuse body aches and pains, nasal and sinus congestion, severe sore throat with dysphagia, persistent cough with pleuritic chest wall pain, lack of appetite, urinary frequency and urgency, intermittent fever of up to 101 F and chills for the last 4 days. Patient states that in the last 24 hours, his symptoms have worsened such that he has not been able to sleep because of persistent diffuse body aches and pains, nausea and headache. Leo ethan denies dizziness, syncope, chest pain or shortness of breath, abdominal pain, diarrhea, change in vision, dysuria, vomiting or testicular pain. This initial assessment/diagnostic orders/clinical plan/treatment(s) is/are subject to change based on patients health status, clinical progression and re- assessment by fellow clinical providers in the ED. Further treatment and workup at subsequent clinical providers discretion. Patient/guardian urged not to elope from the ED as their condition may be serious if not clinically assessed and managed. Initial orders include: CBC, CMP, UA, lactic acid, blood culture, chest x-ray, rapid strep
--- NOTE | 2020-10-19 01:21 | Emergency Department Report ---
ED ENT HPI - General Chief complaint: Fever Stated complaint: CA PT/FEVER/SORE THROAT/CHILLS Source: patient Mode of arrival: Ambulatory Limitations: No Limitations - History of Present Illness Initial comments: 45-year-old male, history of leukemia, status post bone marrow transplant in 2018, now in remission, presents to the ED with sore throat x3 days. Patient reports associated fever. Patient states he has white spots in the back of his throat. Patient states he is unvaccinated against COVID-19. He denies any cough, shortness of breath, vomiting, diarrhea, loss of smell or taste. Patient seen and evaluated in acute waiting room area as there are no available rooms in the ED due to COVID-19 pandemic. MD complaint: sore throat -: days(s) (3) Location: throat Severity: moderate Quality: sharp Consistency: constant Improves with: none Worsens with: swallowing Associated Symptoms: fever, pain with swallowing, sore throat. denies: cough - Related Data Previous Rx's Medication Instructions Recorded Last Taken Type allopurinoL [Zyloprim] 100 mg PO QDAY #30 tablet 10/29/17 Unknown Rx Amoxicillin/Potassium Clav 1 each PO BID 7 Days #14 tablet 01/10/18 Unknown Rx [Augmentin 875-125 Tablet] Ondansetron [Zofran Odt] 4 mg PO Q8HR PRN #14 tab.rapdis 01/23/18 Unknown Rx methOCARBAMOL [Robaxin TAB] 500 mg PO BID PRN #15 tab 11/08/18 Unknown Rx Butalb/Acetamin/Caff 50-325-40 1 tab PO Q6HR PRN #10 tab 01/22/20 Unknown Rx [Fioricet] Naproxen [Naprosyn] 500 mg PO BID #20 tablet 01/22/20 Unknown Rx Naproxen [Naprosyn] 500 mg PO BID #20 tablet 10/19/20 Unknown Rx Allergies Allergy/AdvReac Type Severity Reaction Status Date / Time No Known Allergies Allergy Verified 10/19/20 00:29 ED Dental HPI - General Chief complaint: Fever Stated complaint: CA PT/FEVER/SORE THROAT/CHILLS Source: patient Mode of arrival: Ambulatory Limitations: No Limitations - Related Data Previous Rx's Medication Instructions Recorded Last Taken Type allopurinoL [Zyloprim] 100 mg PO QDAY #30 tablet 10/29/17 Unknown Rx Amoxicillin/Potassium Clav 1 each PO BID 7 Days #14 tablet 01/10/18 Unknown Rx [Augmentin 875-125 Tablet] Ondansetron [Zofran Odt] 4 mg PO Q8HR PRN #14 tab.rapdis 01/23/18 Unknown Rx methOCARBAMOL [Robaxin TAB] 500 mg PO BID PRN #15 tab 11/08/18 Unknown Rx Butalb/Acetamin/Caff 50-325-40 1 tab PO Q6HR PRN #10 tab 01/22/20 Unknown Rx [Fioricet] Naproxen [Naprosyn] 500 mg PO BID #20 tablet 01/22/20 Unknown Rx Naproxen [Naprosyn] 500 mg PO BID #20 tablet 10/19/20 Unknown Rx Allergies Allergy/AdvReac Type Severity Reaction Status Date / Time No Known Allergies Allergy Verified 10/19/20 00:29 ED Review of Systems ROS: Stated complaint: CA PT/FEVER/SORE THROAT/CHILLS Other details as noted in HPI Comment: All other systems reviewed and negative Constitutional: fever ENT: throat pain Respiratory: denies: cough, shortness of breath Gastrointestinal: denies: vomiting, diarrhea ED Past Medical Hx - Past Medical History Hx of Cancer: Yes Hx Asthma: No Additional medical history: leukemia, dx'd 10/2017, - Surgical History Additional Surgical History: fluid drained from lungs, Bone Marrow transplant - Social History Smoking Status: Never Smoker Substance Use Type: None - Medications Home Medications: Home Medications Medication Instructions Recorded Confirmed Last Taken Type allopurinoL [Zyloprim] 100 mg PO QDAY #30 tablet 10/29/17 Unknown Rx Amoxicillin/Potassium Clav 1 each PO BID 7 Days #14 tablet 01/10/18 Unknown Rx [Augmentin 875-125 Tablet] Ondansetron [Zofran Odt] 4 mg PO Q8HR PRN #14 tab.rapdis 01/23/18 Unknown Rx methOCARBAMOL [Robaxin TAB] 500 mg PO BID PRN #15 tab 11/08/18 Unknown Rx Butalb/Acetamin/Caff 50-325-40 1 tab PO Q6HR PRN #10 tab 01/22/20 Unknown Rx [Fioricet] Naproxen [Naprosyn] 500 mg PO BID #20 tablet 01/22/20 Unknown Rx Naproxen [Naprosyn] 500 mg PO BID #20 tablet 10/19/20 Unknown Rx ED Physical Exam - General Limitations: No Limitations General appearance: alert, in no apparent distress - Head Head exam: Present: atraumatic, normocephalic - Eye Eye exam: Present: normal appearance, EOMI - ENT ENT exam: Present: mucous membranes moist, other (Exudates present on bilateral tonsils; uvula is midline; mild erythema noted to tonsils; tonsils slightly swollen) - Neck Neck exam: Present: normal inspection - Respiratory Respiratory exam: Present: normal lung sounds bilaterally. Absent: respiratory distress - Cardiovascular Cardiovascular Exam: Present: regular rate, normal rhythm - GI/Abdominal GI/Abdominal exam: Present: soft. Absent: distended, tenderness - Extremities Exam Extremities exam: Present: normal inspection - Neurological Exam Neurological exam: Present: alert, oriented X3 - Psychiatric Psychiatric exam: Present: normal affect, normal mood - Skin Skin exam: Present: warm, dry, intact, normal color ED Course Vital Signs 10/19/20 10/19/20 00:30 03:40 Temperature 99.9 F H 99.5 F Pulse Rate 87 84 Respiratory 16 Rate Blood Pressure 113/69 [Right] O2 Sat by Pulse 97 99 Oximetry ED Medical Decision Making - Radiology Data Radiology results: report reviewed, image reviewed - Medical Decision Making 45-year-old male presents to ED with fever and sore throat. Vitals are normal with temp of 99.9. Patient has tonsillar exudates present. Rapid strep is negative, however, given patient's exam, Bicillin LA was given. Culture has been sent. Patient will be discharged at this time. Outpatient follow-up advised, return precautions given. Patient has also been advised to obtain outpatient COVID-19 testing. - Differential Diagnosis Strep throat, COVID-19, viral pharyngitis Critical care attestation.: If time is entered above; I have spent that time in minutes in the direct care of this critically ill patient, excluding procedure time. ED Disposition Clinical Impression: URI (upper respiratory infection), Acute pharyngitis Disposition: HOME / SELF CARE / HOMELESS Is pt being admited?: No Condition: Stable Instructions: COVID-19, Pharyngitis, [id number] Additional Instructions: It is advised that you obtain outpatient COVID-19 testing. Quarantine as necessary. You have been treated today for a possible strep throat infection. Return to the ER if your symptoms worsen. Prescriptions: Naproxen [Naprosyn] 500 mg PO BID #20 tablet Referrals: PRIMARY CARE, [Referring] - 3-5 Days NICHOLE TENA MD [Referring] - as needed Time of Disposition: 02:34
[2020-10-19] MEDS ORDERED: PENICILLIN G BENZATHINE 1.2 MILLION UNIT/2 ML INJ IM ONE (02:13)
[2020-10-19] MEDS ORDERED: KETOROLAC 30 MG/1 ML INJ IM ONE (02:36)
--- NOTE | 2020-10-19 02:44 | XRay Report ---
CHEST 1 VIEW INDICATION: fever, cough. COMPARISON: None. FINDINGS: Support devices: None. Heart: Normal. Lungs/Pleura: No acute pulmonary or pleural findings. IMPRESSION: 1. No acute findings. Signer Name: Dayron Singer MD Signed: 10/19/2020 2:40 AM Workstation Name: [id number]
== END 2020-10-19 03:43 | disposition home or self-care (01) ==
LOC: ED 23:07
DX: J06.9 Acute upper respiratory infection, unspecified (principal); J02.9 Acute pharyngitis, unspecified; Z79.899 Other long term (current) drug therapy; Z98.890 Other specified postprocedural states
CPT/HCPCS: 71045; 87116; 87430; 96372; 99284; J0561; J1885

== ENCOUNTER 2021-04-25 21:34 | Emergency (ER) | payer MEDICARE ==
[2021-04-25 21:42] VITALS: BP 124/82
[2021-04-25] MEDS ORDERED: ACETAMINOPHEN 500 MG TAB PO ONE (21:49)
[2021-04-25] MEDS ORDERED: SODIUM CHLORIDE 0.9% 1000 ML 1,000 ML IV ONE (21:51)
--- NOTE | 2021-04-25 22:18 | XRay Report ---
CHEST 2 VIEWS INDICATION / CLINICAL INFORMATION: fever and cough. COMPARISON: 01/29/2021 FINDINGS: SUPPORT DEVICES: None. HEART / MEDIASTINUM: No significant abnormality. LUNGS / PLEURA: Lungs are hyperexpanded, similar to prior exam. No focal airspace disease. No pneumot horax. ADDITIONAL FINDINGS: No significant additional findings. IMPRESSION: 1. Stable exam. No acute findings. Signer Name: Joshua Bill MD Signed: 04/25/2021 10:14 PM Workstation Name: [id number]
[2021-04-25 22:52] LABS: Basophils % (Auto) 0.2 % (0.0-1.8); Eosinophils % (Auto) 0.4 % (0.0-4.3); Hematocrit 39.8 % (35.5-45.6); Hemoglobin 13.1 gm/dl (11.8-15.2); Lymphocytes # (Auto) 1.5 K/mm3 (1.2-5.4); Lymphocytes % (Auto) 20.1 % (13.4-35.0); Mean Corpuscular HGB Conc 33 % (32-34); Mean Corpuscular Volume 92 fl (84-94); Monocytes # (Auto) 1.1 K/mm3 (0.0-0.8); Platelet Count 236 K/mm3 (140-440); Red Blood Count 4.35 M/mm3 (3.65-5.03); Red Cell Distribution Width 15.3 % (13.2-15.2)
[2021-04-25 23:03] LABS: Alanine Aminotransferase 18 units/L (7-56); Albumin 3.4 g/dL (3.9-5); BUN/Creatinine Ratio 10; Blood Urea Nitrogen 10 mg/dL (9-20); Calcium 8.3 mg/dL (8.4-10.2); Hemolysis Index 6
--- NOTE | 2021-04-25 23:15 | Emergency Department Report ---
ED General Adult HPI - General Chief complaint: Fever Stated complaint: FEVER Time Seen by Provider: 04/25/21 22:54 Source: patient Mode of arrival: Ambulatory Limitations: No Limitations - History of Present Illness Initial comments: Patient 46-year-old male presents with fevers chills malaise with sore throat x3 days. Patient states some pain with swallowing. However patient is tolerating p.o. intake at this time there is no nausea or vomiting. There is no dizziness or lightheadedness. She denies diarrhea. No shortness of breath no cough no dy suria frequency urgency or hematuria. Fevers controlled with [id number] ibuprofen. Patient rates symptoms at 3/10 at this time. Severity scale (0 -10): 8 - Related Data Previous Rx's Medication Instructions Recorded Last Taken Type Albuterol Mdi (or & Nicu Only) 1 puff IH TID PRN #8.5 gram 01/31/21 Unknown Rx [ProAir HFA Inhaler] Albuterol Sulfate [Albuterol 0.63% 0.63 mg IH TID PRN #1 box 01/31/21 Unknown Rx NEBS] Azithromycin 250 mg PO DAILY #6 tablet 01/31/21 Unknown Rx Benzonatate [Tessalon Perles] 100 mg PO Q8HR #24 capsule 01/31/21 Unknown Rx Compressor, For Nebulizer [Ebase 1 each MC TID PRN #1 each 01/31/21 Unknown Rx Controller] Ipratropium [Atrovent NEB] 0.5 mg IH Q8HRT #1 box 01/31/21 Unknown Rx predniSONE 10 mg PO .TAPER #48 tab 01/31/21 Unknown Rx Amoxicillin/Potassium Clav 1 each PO BID 7 Days #14 04/25/21 Unknown Rx [Augmentin 875-125 Tablet] Ibuprofen [Motrin] 800 mg PO Q8HR PRN #30 tablet 04/25/21 Unknown Rx Allergies Allergy/AdvReac Type Severity Reaction Status Date / Time No Known Allergies Allergy Verified 01/29/21 16:06 ED Review of Systems ROS: Stated complaint: FEVER Other details as noted in HPI Constitutional: chills, fever, malaise Eyes: as per HPI ENT: throat pain, congestion. denies: ear pain, dental pain Respiratory: denies: cough, shortness of breath, wheezing Cardiovascular: denies: chest pain, palpitations Endocrine: no symptoms reported Gastrointestinal: denies: abdominal pain, nausea, vomiting, diarrhea Genitourinary: as per HPI Musculoskeletal: denies: back pain, joint swelling, arthralgia Skin: denies: rash, lesions Neurological: denies: headache, weakness, paresthesias, vertigo Psychiatric: denies: anxiety, depression Hematological/Lymphatic: denies: easy bleeding, easy bruising ED Past Medical Hx - Past Medical History Previous Medical History?: Yes Hx Asthma: No Additional medical history: leukemia, dx'd 10/2017, - Surgical History Past Surgical History?: Yes Additional Surgical History: fluid drained from lungs, Bone Marrow transplant - Social History Smoking Status: Former Smoker Substance Use Type: None - Medications Home Medications: Home Medications Medication Instructions Recorded Confirmed Last Taken Type Albuterol Mdi (or & Nicu Only) 1 puff IH TID PRN #8.5 gram 01/31/21 Unknown Rx [ProAir HFA Inhaler] Albuterol Sulfate [Albuterol 0.63% 0.63 mg IH TID PRN #1 box 01/31/21 Unknown Rx NEBS] Azithromycin 250 mg PO DAILY #6 tablet 01/31/21 Unknown Rx Benzonatate [Tessalon Perles] 100 mg PO Q8HR #24 capsule 01/31/21 Unknown Rx Compressor, For Nebulizer [Ebase 1 each MC TID PRN #1 each 01/31/21 Unknown Rx Controller] Ipratropium [Atrovent NEB] 0.5 mg IH Q8HRT #1 box 01/31/21 Unknown Rx predniSONE 10 mg PO .TAPER #48 tab 01/31/21 Unknown Rx Amoxicillin/Potassium Clav 1 each PO BID 7 Days #14 04/25/21 Unknown Rx [Augmentin 875-125 Tablet] Ibuprofen [Motrin] 800 mg PO Q8HR PRN #30 tablet 04/25/21 Unknown Rx ED Physical Exam - General Limitations: No Limitations General appearance: alert, in no apparent distress - Head Head exam: Present: normocephalic, normal inspection - Eye Eye exam: Present: normal appearance, PERRL, EOMI Pupils: Present: normal accommodation - ENT ENT exam: Present: normal exam, mucous membranes moist, TM's normal bilaterally, normal external ear exam - Expanded ENT Exam Expanded Throat exam: Positive: tonsillar erythema, tonsillomegaly, tonsillar exudate, other (Uvula midline, no lesions, no peritonsillar abscess airway is patent no wheezing no stridor.). Negative: R peritonsillar mass, L peritonsillar mass - Neck Neck exam: Present: normal inspection, full ROM, lymphadenopathy. Absent: tenderness, meningismus, thyromegaly - Respiratory Respiratory exam: Present: normal lung sounds bilaterally. Absent: respiratory distress, wheezes, stridor, chest wall tenderness - Cardiovascular Cardiovascular Exam: Present: regular rate, normal rhythm, normal heart sounds. Absent: systolic murmur, diastolic murmur, rubs, gallop - GI/Abdominal GI/Abdominal exam: Present: soft, normal bowel sounds. Absent: distended, tenderness - Rectal Rectal exam: Present: deferred - Extremities Exam Extremities exam: Present: normal inspection, full ROM, normal capillary refill. Absent: tenderness - Back Exam Back exam: Present: normal inspection, full ROM. Absent: CVA tenderness (R), CVA tenderness (L) - Neurological Exam Neurological exam: Present: alert, oriented X3, CN II-XII intact, normal gait - Expanded Neurological Exam Expanded Patient oriented to: Present: person, place, time Speech: Present: fluid speech Best Eye Response ([place]): (4) open spontaneously Best Motor Response ([place]): (6) obeys commands Best Verbal Response ([place]): (5) oriented [place] Total: 15 - Psychiatric Psychiatric exam: Present: normal affect, normal mood - Skin Skin exam: Present: warm, dry, intact, normal color. Absent: rash ED Course Vital Signs 04/25/21 04/25/21 21:40 21:59 Temperature 102.5 F H Pulse Rate 99 H Respiratory 18 16 Rate Blood Pressure 124/82 [Right] O2 Sat by Pulse 96 Oximetry ED Medical Decision Making - Lab Data Result diagrams: 04/25/21 22:25 04/25/21 22:25 - Radiology Data Radiology results: report reviewed, image reviewed CHEST 2 VIEWS INDICATION / CLINICAL INFORMATION: fever and cough. COMPARISON: 01/29/2021 FINDINGS: SUPPORT DEVICES: None. HEART / MEDIASTINUM: No significant abnormality. LUNGS / PLEURA: Lungs are hyperexpanded, similar to prior exam. No focal airspace disease. No pneumothorax. ADDITIONAL FINDINGS: No significant additional findings. IMPRESSION: 1. Stable exam. No acute findings. Signer Name: Joshua Bill MD Signed: 04/25/2021 10:14 PM Workstation Name: [id number] Transcribed By: ANGELA Dictated By: JOSHUA BILL MD Electronically Authenticated By: JOSHUA BILL MD Signed Date/Time: 04/25/212213 DD/ 11 TD/TT: - Medical Decision Making Chest x-ray is normal no infiltrates no opacities, labs noted normal. ENT exam bilateral tonsillar exudate no peritonsillar abscess, uvula remains midline patient is swallowing without difficulty patient is tolerating p.o. intake plan DC to home with prescriptions. Follow-up with primary care doctor in 2 to 3 days, continue to hydrate as directed. Return to emergency should symptoms worsen. Fever is relieved at this time patient remains alert oriented x3 amatory steady gait with no acute distress. Patient DC'd home. Critical care attestation.: If time is entered above; I have spent that time in minutes in the direct care of this critically ill patient, excluding procedure time. ED Disposition Clinical Impression: Acute bacterial tonsillitis Disposition: HOME / SELF CARE / HOMELESS Is pt being admited?: No Does the pt Need Aspirin: No Condition: Stable Instructions: Tonsillitis, [id number] Additional Instructions: Take medications as prescribed, follow-up with your doctor as directed. Hydrate as directed. Return to emergency should symptoms worsen. Prescriptions: Amoxicillin/Potassium Clav [Augmentin 875-125 Tablet] 1 each PO BID 7 Days #14 Ibuprofen [Motrin] 800 mg PO Q8HR PRN #30 tablet PRN Reason: PAIN fEVER Referrals: CRISTINE KINGSTON MD [Staff Physician] - 3-5 Days Forms: Work/School Release Form(ED) Time of Disposition: 23:19
[2021-04-25] MEDS ORDERED: AMOXICILLIN/K CLAV 875/125MG TAB PO ONE (23:19)
== END 2021-04-26 | disposition home or self-care (01) ==
LOC: ED 21:34
DX: J03.90 Acute tonsillitis, unspecified (principal); Z87.891 Personal history of nicotine dependence
CPT/HCPCS: 36415; 71046; 80053; 82140; 85025; 96360; 99283; J7030; Q0162

== ENCOUNTER 2021-10-19 00:18 | Emergency (ER) | payer MEDICARE ==
[2021-10-19] MEDS ORDERED: ONDANSETRON 4 MG ODT TAB PO ONE (07:57)
[2021-10-19] MEDS ORDERED: oxyCODONE /ACETAMINOPHEN 5-325MG TAB PO ONE (07:57)
[2021-10-19] MEDS ORDERED: predniSONE 20 MG TAB PO ONE (07:57)
[2021-10-19] MEDS ORDERED: MORPHINE 4 MG/1 ML INJ IM ONE (07:57)
[2021-10-19] MEDS ORDERED: KETOROLAC 10 MG TAB PO ONE (07:57)
--- NOTE | 2021-10-19 08:40 | Emergency Department Report ---
ED Back Pain/Injury HPI - General Chief Complaint: Back Pain/Injury Stated Complaint: LOWER BACK PAIN Time Seen by Provider: 10/19/21 07:12 Source: patient Limitations: No Limitations - History of Present Illness Initial Comments: 46-year-old black male with a past medical history of leukemia status post bone marrow transplant 2 years ago presents to the emergency department for evaluation of lower back pain. He states that every since he had his bone marrow transplant, he has intermittent lower back pain, but the pain has been significantly worse the last 2 days. He denies any injury or trauma. He denies fever, abdominal pain, nausea, vomiting, dysuria, and pain and tingling to his legs. He states that he has taken ibuprofen for his pain without any improvement. MD Complaint: back pain -: Gradual, days(s) (2-3) Similar Symptoms Previously: Yes Place: home Radiation: none Severity: severe Severity scale (0 -10): 10 Quality: aching Consistency: constant Worsens With: movement, sitting upright Associated Symptoms: denies other symptoms - Related Data Previous Rx's Medication Instructions Recorded Last Taken Type Albuterol Mdi (or & Nicu Only) 1 puff IH TID PRN #8.5 gram 01/31/21 Unknown Rx [ProAir HFA Inhaler] Albuterol Sulfate [Albuterol 0.63% 0.63 mg IH TID PRN #1 box 01/31/21 Unknown Rx NEBS] Azithromycin 250 mg PO DAILY #6 tablet 01/31/21 Unknown Rx Benzonatate [Tessalon Perles] 100 mg PO Q8HR #24 capsule 01/31/21 Unknown Rx Compressor, For Nebulizer [Ebase 1 each MC TID PRN #1 each 01/31/21 Unknown Rx Controller] Ipratropium [Atrovent NEB] 0.5 mg IH Q8HRT #1 box 01/31/21 Unknown Rx predniSONE 10 mg PO .TAPER #48 tab 01/31/21 Unknown Rx Amoxicillin/Potassium Clav 1 each PO BID 7 Days #14 04/25/21 Unknown Rx [Augmentin 875-125 Tablet] Ibuprofen [Motrin] 800 mg PO Q8HR PRN #30 tablet 04/25/21 Unknown Rx Acetaminophen/Codeine [Tylenol 1 tab PO Q6H PRN #12 tab 10/19/21 Unknown Rx /Codeine # 3 tab] Cyclobenzaprine [Flexeril] 10 mg PO TID PRN #30 tab 10/19/21 Unknown Rx Ketorolac [Toradol] 10 mg PO Q6H PRN #12 tab 10/19/21 Unknown Rx Lidocaine [Lidoderm] 1 each TP DAILY PRN #10 patch 10/19/21 Unknown Rx Allergies Allergy/AdvReac Type Severity Reaction Status Date / Time No Known Allergies Allergy Verified 01/29/21 16:06 ED Review of Systems ROS: Stated complaint: LOWER BACK PAIN Other details as noted in HPI Comment: All other systems reviewed and negative Constitutional: denies: chills, fever ENT: denies: congestion Respiratory: denies: shortness of breath, wheezing Cardiovascular: denies: chest pain, palpitations Gastrointestinal: denies: abdominal pain, nausea, vomiting Genitourinary: denies: urgency, dysuria, frequency, discharge, testicular pain, testicular mass Musculoskeletal: back pain Skin: denies: rash, lesions Neurological: denies: headache, weakness ED Past Medical Hx - Past Medical History Hx Asthma: No Additional medical history: leukemia, dx'd 10/2017, - Surgical History Additional Surgical History: fluid drained from lungs, Bone Marrow transplant - Social History Smoking Status: Former Smoker Substance Use Type: None - Medications Home Medications: Home Medications Medication Instructions Recorded Confirmed Last Taken Type Albuterol Mdi (or & Nicu Only) 1 puff IH TID PRN #8.5 gram 01/31/21 Unknown Rx [ProAir HFA Inhaler] Albuterol Sulfate [Albuterol 0.63% 0.63 mg IH TID PRN #1 box 01/31/21 Unknown Rx NEBS] Azithromycin 250 mg PO DAILY #6 tablet 01/31/21 Unknown Rx Benzonatate [Tessalon Perles] 100 mg PO Q8HR #24 capsule 01/31/21 Unknown Rx Compressor, For Nebulizer [Ebase 1 each MC TID PRN #1 each 01/31/21 Unknown Rx Controller] Ipratropium [Atrovent NEB] 0.5 mg IH Q8HRT #1 box 01/31/21 Unknown Rx predniSONE 10 mg PO .TAPER #48 tab 01/31/21 Unknown Rx Amoxicillin/Potassium Clav 1 each PO BID 7 Days #14 04/25/21 Unknown Rx [Augmentin 875-125 Tablet] Ibuprofen [Motrin] 800 mg PO Q8HR PRN #30 tablet 04/25/21 Unknown Rx Acetaminophen/Codeine [Tylenol 1 tab PO Q6H PRN #12 tab 10/19/21 Unknown Rx /Codeine # 3 tab] Cyclobenzaprine [Flexeril] 10 mg PO TID PRN #30 tab 10/19/21 Unknown Rx Ketorolac [Toradol] 10 mg PO Q6H PRN #12 tab 10/19/21 Unknown Rx Lidocaine [Lidoderm] 1 each TP DAILY PRN #10 patch 10/19/21 Unknown Rx ED Physical Exam - General Limitations: No Limitations General appearance: alert, in no apparent distress - Head Head exam: Present: atraumatic, normocephalic - Eye Eye exam: Present: normal appearance. Absent: conjunctival injection, periorbital swelling, periorbital tenderness - ENT ENT exam: Present: normal exam, normal orophraynx - Neck Neck exam: Present: normal inspection, full ROM. Absent: tenderness, lymphadenopathy - Respiratory Respiratory exam: Present: normal lung sounds bilaterally. Absent: respiratory distress, wheezes, rales, rhonchi, stridor, chest wall tenderness - Cardiovascular Cardiovascular Exam: Present: bradycardia, normal heart sounds - GI/Abdominal GI/Abdominal exam: Present: soft, normal bowel sounds. Absent: distended, tenderness, guarding, rebound, rigid - Extremities Exam Extremities exam: Present: normal inspection, normal capillary refill. Absent: full ROM, tenderness, pedal edema, joint swelling, calf tenderness - Back Exam Back exam: Present: normal inspection, tenderness, vertebral tenderness. Absent: CVA tenderness (R), CVA tenderness (L) - Expanded Back Exam Expanded Back exam: Absent: saddle anesthesia Back exam: Negative Straight Leg Raising: Left, Right - Neurological Exam Neurological exam: Present: alert, oriented X3, CN II-XII intact, normal gait, reflexes normal. Absent: motor sensory deficit - Psychiatric Psychiatric exam: Present: normal affect, normal mood - Skin Skin exam: Present: warm, dry, intact, normal color ED Course Vital Signs 10/19/21 10/19/21 10/19/21 02:34 08:18 08:19 Temperature 98.6 F Pulse Rate 57 L Respiratory 18 12 14 Rate Blood Pressure 128/85 [Right] O2 Sat by Pulse 96 Oximetry 10/19/21 10/19/21 08:20 09:27 Temperature 97.9 F Pulse Rate 68 Respiratory 14 12 Rate Blood Pressure 137/94 [Right] O2 Sat by Pulse 98 Oximetry ED Medical Decision Making - Medical Decision Making 46-year-old black male with a past medical history of leukemia status post bone marrow transplant 2 years ago presents to the emergency department for evaluation of lower back pain. He states that every since he had his bone marrow transplant, he has intermittent lower back pain, but the pain has been significantly worse the last 2 days. He denies any injury or trauma. He denies fever, abdominal pain, nausea, vomiting, dysuria, and pain and tingling to his legs. He states that he has taken ibuprofen for his pain without any improvement. Physical exam unremarkable. Patient will be discharged home with Toradol, Tylenol 3, Flexeril, and Lidoderm patches to use as directed. He is advised to follow-up with his primary care provider if no improvement or worsening symptoms and return to the emergency department as needed. He verbalizes understanding of and agreement with plan of care. Critical care attestation.: If time is entered above; I have spent that time in minutes in the direct care of this critically ill patient, excluding procedure time. ED Disposition Clinical Impression: Lower back pain Qualifiers: Chronicity: chronic Back pain laterality: left Sciatica presence: without sciatica Qualified Code(s): M54.50 - Low back pain, unspecified Disposition: 01 HOME / SELF CARE / HOMELESS Is pt being admited?: No Does the pt Need Aspirin: No Condition: Stable Instructions: Back Exercises, [id number], Chronic Back Pain Additional Instructions: Take medications as prescribed. Follow-up with your primary care provider if worsening symptoms or no improvement. Return to the emergency department as needed. Prescriptions: Cyclobenzaprine [Flexeril] 10 mg PO TID PRN #30 tab PRN Reason: Muscle Spasm Lidocaine [Lidoderm] 1 each TP DAILY PRN #10 patch PRN Reason: Pain, Moderate (4-6) Ketorolac [Toradol] 10 mg PO Q6H PRN #12 tab PRN Reason: Pain Acetaminophen/Codeine [Tylenol /Codeine # 3 tab] 1 tab PO Q6H PRN #12 tab PRN Reason: Pain , Severe (7-10) Referrals: KWAKU MELCHOR MD [Primary Care Provider] - 3-5 Days CHRISTIAN MAST MD [Staff Physician] - 3-5 Days Time of Disposition: 08:40
[2021-10-19 09:29] VITALS: BP 137/94
== END 2021-10-19 09:29 | disposition home or self-care (01) ==
LOC: ED 00:18
DX: M54.50 Low back pain, unspecified (principal); Z87.891 Personal history of nicotine dependence; Z79.899 Other long term (current) drug therapy
CPT/HCPCS: 96372; 99282; J2270; J3490; Q0162